=== PATIENT | female | born 1965 | race Caucasian/White ===

== ENCOUNTER 2020-02-15 11:23 | Outpatient (REF) | payer BC, SELFPAY | END 2020-02-15 11:24 | disposition home or self-care (01) | LOC: HO.LNP 11:23 | PROVIDERS: Visit Provider Nurse Practitioner Family | DX: Z20.828 Contact with and (suspected) exposure to other viral communicable diseases (principal); B97.89 Other viral agents as the cause of diseases classified elsewhere; J02.8 Acute pharyngitis due to other specified organisms | CPT/HCPCS: 87635 ==

== ENCOUNTER 2023-02-12 07:53 | Emergency (ER) | payer BC, SELFPAY ==
[2023-02-12 08:04] VITALS: BP 128/75; BP 148/82; PULSE 80; RESP 16; TEMP 36.4; O2SAT 95; BMI 29.0
--- OUTSIDE RECORDS SUMMARY | 2023-02-12 08:22 | XMS_ITS | Continuity of Care Document ---
Author Name Unknown Organization [facility] ter Address [address] [place] [id number] Care Team Providers Care Sales Support Consultant Name Role Phone Samson Reyes MD Primary Care Physician [phone] Encounter [facility] [place] Date(s): 04/09/19 - 11/10/[address] [address]- [facility] Attending Physician: Gladis Pinedo NP Admitting Physician: Gladis Pinedo NP Referring Physician: Gladis Pinedo NP Allergies, Adverse Reactions, Alerts Substance Reaction Severity Status NKA Active Immunizations Given and Recorded Vaccine Date Status Refusal Reason pneumococcal 23-valent vaccine 01/04/15 Given Pneumococcal Vaccine (oldterm) 06/14/08 Given influenza virus vaccine, inactivated 06/14/08 Give n Medications acetaminophen 325 mg oral tablet = 650 mg, By Mouth, Every 4 hours, PRN Headache Pain , Mild, Temperature Greater than 100.5, 0 Refills, Maintenance, 01/06/15 8:41:38, Tablet Start Date: 01/06/15 Status: Ordered LORazepam 0.5 mg oral tablet 1 tablet = 0.5 mg, By Mouth, Once, PRN as needed for anxiety, 0 Refills, Maintenance, 01/03/15 18:45:22, Tablet Start Date: 01/03/15 Status: Ordered pantoprazole 40 mg oral delayed release tablet 1 tablet = 40 mg, By Mouth, 2 times a day, # 14 tablet, 0 Refills, Maintenance, 01/06/15 8:43:27, 1tablet By Mouth 2 times a day,x7 days Start Date: 01/06/15 Stop Date: 01/13/15 Status: Ordered pantoprazole 40 mg oral delayed release tablet 1 tablet = 40 mg, By Mouth, Daily, Take one tablet twice a week then one tablet daily, # 30 tablet,2 Refills, Maintenance, 01/06/15 13:28:29, EC Tablet, 1 tablet By Mouth Daily,Instr:Take one tablettwice a week then one tablet daily Start Date: 01/06/15 Status: Ordered ProAir HFA 2 puffs, Inhalation, Every 4 hours, 0 Refills, Maintenance, 01/03/15 18:45:38 Start Date: 01/03/15 Status: Ordered
[2023-02-12 08:45] LABS: MANUAL DIFF FLAG NO
[2023-02-12 08:46] LABS: Basophils Absolute Auto 0.1 X10*3/uL (0.0-0.2); Basophils Percent Auto 0.7 % (0-2); Eosinophils Absolute Auto 0.2 X10*3/uL (0.0-0.4); Eosinophils Percent Auto 2.4 % (0-4); Hematocrit 41.5 % (37.0-47.0); Hemoglobin 13.4 g/dl (12.0-16.0); Imm Gran Abs Auto 0.02 X10*3/uL (0.00-0.03); Imm Gran Pct Auto 0.3 % (0.0-0.4); Lymphocytes Absolute Auto 1.6 X10*3/uL (1.2-4.9); Lymphocytes Percent Auto 22.8 % (20-40); Mean Corpuscular HGB Conc 32.3 g/dl (31.0-35.0); Mean Corpuscular Hemoglobin 29.3 pg (27.0-33.0); Mean Corpuscular Volume 90.6 fL (80.0-98.0); Mean Platelet Volume 9.2 fL (9.4-12.3); Monocytes Absolute Auto 0.5 X10*3/uL (0.1-1.2); Monocytes Percent Auto 7.1 % (2-11); Neutrophils Absolute Auto 4.8 x10*3/uL (2.0-8.3); Neutrophils Percent Auto 66.7 % (45-73); Platelet Count 263 X10*3/uL (160-400); Red Blood Count 4.58 X10*6/uL (4.20-5.50); Red Cell Distribution Width 12.9 % (11.0-16.0); White Blood Count 7.2 X10*3/uL (4.8-10.8)
[2023-02-12 08:58] LABS: Ammonia 32 umol/L (13-55)
[2023-02-12 09:04] LABS: Alanine Aminotransferase 64 U/L (0-31); Albumin Level 4.1 g/dL (3.5-5.0); Alkaline Phosphatase 86 U/L (39-117); Anion Gap 13 (12-20); Aspartate Amino Transferase 39 U/L (5-31); Bilirubin Total 0.6 mg/dL (0.0-1.0); Blood Urea Nitrogen 21 mg/dL (9-16); Calcium 9.7 mg/dL (8.4-10.2); Carbon Dioxide 26 mmol/L (22-29); Chloride 105 mmol/L (96-108); Creatinine Clr Calc Pharmacy 82.5; Estimated Glomerular Filt Rate > 60; Glucose Random 111 mg/dL (60-115); Sodium 140 mmol/L (135-145); Total Protein 6.8 g/dL (6.5-8.0)
[2023-02-12 09:53] LABS: Ethanol < 10 mg/dL
[2023-02-12 10:33] VITALS: BP 134/78; PULSE 82; RESP 18; TEMP 36.5; O2SAT 95
[2023-02-12 10:44] LABS: Appearance Urine Clear; Color Urine Dark Yellow; Glucose Urine UA Negative (Negative); Leukocyte Esterase Urine Negative (Negative); Nitrite Urine Negative (Negative); PH 5.5 (5.0-9.0); Specific Gravity - Urine >= 1.030 (1.005-1.025); Urine Blood Negative (Negative); Urine Ketones Negative (Negative); Urine Protein Negative (Neg-Trace)
[2023-02-12 10:57] LABS: Amphetamine Screen Urine Not Detected (Not Detect); Barbiturates, Urine Not Detected (Not Detect); Benzodiazepines Screen Urine Not Detected (Not Detect); Cannabinoid Screen Urine POSITIVE (Not Detect); Cocaine Screen Urine Not Detected (Not Detect); Fentanyl, urine Not Detected (Not Detect); Opiate Screen Urine Not Detected (Not Detect); Phencyclidine Screen Urine Not Detected (Not Detect)
--- NOTE | 2023-02-12 11:36 | PC.NURSE ---
PO challenging patient at this time, provided with water and crackers. per family, patient still appears to be altered at this time stating that she seems off
--- NOTE | 2023-02-12 12:40 | ED_ITS ---
HPI - Altered Mental Status General Chief Complaint: Altered Mental Status Stated Complaint: ALTERED X3-4 DAYS PER FAM,WEAK PER PT Time Seen by Provider: 02/12/23 07:59 Source: patient and EMS Mode of arrival: EMS History of Present Illness HPI narrative: Patient presents lethargic and slurred, she is on a lot of psych meds and has been using marijuana. She may have doubled up her meds. complaint: altered mental status Onset (ago): day(s) Timing confirmed by: family member Related Data Home Medications Medication Instructions Recorded Confirmed aripiprazole 5 mg tablet (Abilify) 5 mg PO DAILY 02/15/20 bupropion HCl 100 mg tablet,12 hr 100 mg PO DAILY 02/15/20 sustained-release (Wellbutrin SR) sertraline 100 mg tablet 100 mg PO DAILY 02/15/20 sertraline 50 mg tablet 50 mg PO DAILY 02/15/20 trazodone 100 mg tablet 100 mg PO DAILY 02/15/20 Previous Rx's Medication Instructions Recorded erythromycin 5 mg/gram (0.5 %) eye 0.5 inch ophthalmic (eye) TID #3.5 04/11/22 ointment grams sulfacetamide sodium 10 % eye drops 2 drp ophthalmic (eye) Q4H 10 days 04/11/22 #15 mL Allergies Allergy/AdvReac Type Severity Reaction Status Date / Time No Known Allergies Allergy Verified 04/11/22 12:05 Review of Systems 2 Review of Systems: Yes all other systems are reviewed and are negative Neurologic: Denies Sensory deficit (Neuro) [facility] Social History Social History Advance Directives: No Advance Directives Information Provided: No Physical Exam ED Vital Signs: Vital Signs - 24 hr 02/12/23 08:04 02/12/23 10:33 Temperature 97.6 F 97.7 F Pulse Rate 80 82 Respiratory Rate 16 18 Blood Pressure 128/75 134/78 Pulse Oximetry 95 95 Oxygen Delivery Method Room Air Room Air BMI result Body Mass Index 29.0 Const Other: lethargic female appearing altered on meds Nutritional Appearance: average body habitus Orientation/consciousness: oriented to person and patient oriented x3 Limitations: no limitations HENMT Head: Yes normal to inspection Ears: external ears normal General nose exam: Normal external nose present Mouth: Normal oral and palatal mucosa present and oropharynx normal Throat: Yes posterior oropharynx normal Eyes General: appearance normal, both eyes and all related structures Neck Neck: Yes normal visual inspection Chest Chest palpation & inspection: normal inspection of the chest Resp Auscultation: clear to auscultation bilaterally Cardio Jugular venous distension: no JVD Rate: regular rate Rhythm: regular rhythm Heart sounds: S1 normal heart sound present and S2 normal heart sound present GI Inspection: Yes normal to inspection Palpation (GI): Soft to palpation, nontender and No hepatosplenomegaly present Auscultation: normal bowel sounds General: Yes no CVA tenderness Back/Spine/Pelvis Back: no CVA tenderness Skin General skin exam: no rashes or lesions noted Neuro General: oriented to person and patient oriented x3 Cranial nerves: Yes CN's II-XII intact bilaterally Motor exam (neuro): 5/5 motor strength present throughout Sensory Exam: No Sensory deficit (Neuro) Extrem General: Yes normal to inspection Psych Appearance: grossly normal Course Reevaluation(s) Reevaluation #1: start of physician observation: patient still lethargic will start obs to see if she improves over time. Family at bedside Time: 12:47 Medical Decision Making Differential Diagnosis Differential Diagnoses: The differential diagnosis associated with the presentation includes (substance abuse, medication side effect or accidental overdose, stroke, alcohol intoxication) Admission/Observation Consideration of admission/observation: Escalation of care including admission/observation considered (upon arrival patient considered for admission) Lab Data MDM Lab Attestation statement: I reviewed the patient's lab results. (labs only positive for THC, with slight liver elevation) 02/12/23 08:29 02/12/23 08:29 Labs: Lab Results 02/12/23 02/12/23 Range/Units 08:29 10:30 WBC 7.2 (4.8-10.8) X10*3/uL RBC 4.58 (4.20-5.50) X10*6/uL Hgb 13.4 (12.0-16.0) g/dl Hct 41.5 (37.0-47.0) % MCV 90.6 (80.0-98.0) fL MCH 29.3 (27.0-33.0) pg MCHC 32.3 (31.0-35.0) g/dl RDW 12.9 (11.0-16.0) % Plt Count 263 (160-400) X10*3/uL MPV 9.2 L (9.4-12.3) fL Immature Gran % (Auto) 0.3 (0.0-0.4) % Neut % (Auto) 66.7 (45-73) % Lymph % (Auto) 22.8 (20-40) % [place] % (Auto) 7.1 (2-11) % Eos % (Auto) 2.4 (0-4) % Baso % (Auto) 0.7 (0-2) % Lymph # (Auto) 1.6 (1.2-4.9) X10*3/uL [place] # (Auto) 0.5 (0.1-1.2) X10*3/uL Eos # (Auto) 0.2 (0.0-0.4) X10*3/uL Baso # (Auto) 0.1 (0.0-0.2) X10*3/uL Abs Immat Gran (auto) 0.02 (0.00-0.03) X10*3/uL Absolute Neuts (auto) 4.8 (2.0-8.3) x10*3/uL Absolute Nucleated RBC 0.000 (0.0-0.012) X10*3/uL Nucleated RBC % (auto) 0.0 (0.0-0.2) /100WBC Sodium 140 (135-145) mmol/L Potassium 4.0 (3.3-5.1) mmol/L Chloride 105 (96-108) mmol/L Carbon Dioxide 26 (22-29) mmol/L Anion Gap 13 (12-20) BUN 21 H (9-16) mg/dL Creatinine 0.69 (0.5-1.4) mg/dL Estim Creat Clear Calc 82.5 Estimated GFR > 60 Random Glucose 111 (60-115) mg/dL Calcium 9.7 (8.4-10.2) mg/dL Total Bilirubin 0.6 (0.0-1.0) mg/dL AST 39 H (5-31) U/L ALT 64 H (0-31) U/L Alkaline Phosphatase 86 (39-117) U/L Ammonia 32 (13-55) umol/L Total Protein 6.8 (6.5-8.0) g/dL Albumin 4.1 (3.5-5.0) g/dL Urine Color Dark Yellow Urine Appearance Clear Urine pH 5.5 (5.0-9.0) Ur Specific [place] >= 1.030 H (1.005-1.025) Urine Protein Negative (Neg-Trace) mg/dL Urine Glucose (UA) Negative (Negative) mg/dL Urine Ketones Negative (Negative) mg/dL Urine Blood Negative (Negative) Urine Nitrite Negative (Negative) Ur Leukocyte Esterase Negative (Negative) Urine Opiates Screen Not Detected (Not Detect) Urine Fentanyl Screen Not Detected (Not Detect) Ur Barbiturates Screen Not Detected (Not Detect) Ur Phencyclidine Scrn Not Detected (Not Detect) Ur Amphetamines Screen Not Detected (Not Detect) U Benzodiazepines Scrn Not Detected (Not Detect) Urine Cocaine Screen Not Detected (Not Detect) U Marijuana (THC) Screen POSITIVE H (Not Detect) Ethyl Alcohol < 10 mg/dL Independent Historian Clinical information obtained from an independent historian. History obtained from or confirmed by: Other (son and sister) Tests considered The following testing was considered but not selected: Head CT was considered but patient is nonfocal Discharge Plan Discharge Clinical Impression: Altered mental status, Medication side effect, Tetrahydrocannabinol (THC) use disorder, mild, abuse Patient Disposition: Still a Patient Prescriptions: No Action sertraline 100 mg tablet 100 mg PO DAILY sertraline 50 mg tablet 50 mg PO DAILY bupropion HCl [Wellbutrin SR] 100 mg tablet sustained-release 12 hr 100 mg PO DAILY aripiprazole [Abilify] 5 mg tablet 5 mg PO DAILY trazodone 100 mg tablet 100 mg PO DAILY sulfacetamide sodium 10 % drops 2 drp ophthalmic (eye) Q4H 10 Days Qty: 15 0RF erythromycin 5 mg/gram (0.5 %) ointment 0.5 inch ophthalmic (eye) TID Qty: 3.5 0RF
--- NOTE | 2023-02-12 13:41 | PC.NURSE ---
now physician observation at this time, family reporting that she is still not herself. respirations even and unlabored.
[2023-02-12 16:00] VITALS: BP 117/70; PULSE 68; RESP 16; TEMP 36.7; O2SAT 100
[2023-02-12] MEDS: Butalb/Acetamin/Caff 50/325/40 TABLET 1 TAB PO (19:06)
[2023-02-12 20:00] VITALS: BP 111/63; PULSE 84; RESP 16; TEMP 36.9; O2SAT 96
== END 2023-02-12 21:24 | disposition home or self-care (01) ==
PROVIDERS: Emergency Provider Emergency Medicine
DX: R41.82 Altered mental status, unspecified (principal); T40.711A Poisoning by cannabis, accidental (unintentional), initial encounter; F12.10 Cannabis abuse, uncomplicated; Y92.9 Unspecified place or not applicable; Z79.899 Other long term (current) drug therapy
CPT/HCPCS: 36415; 80053; 80307; 81003; 82140; 85025; 99283; 99285

== ENCOUNTER 2023-07-17 10:32 | Outpatient (AMB) | payer BC, SELFPAY ==
[2023-07-17 11:18] VITALS: BP 118/76; PULSE 88; TEMP 36.5; O2SAT 97; BMI 24.5
--- NOTE | 2023-07-17 11:18 | AM.OFFWIN_ITS ---
Intake Vital Signs 07/17/23 11:18 Height 5 ft 2 in Weight 134 lb BMI 24.5 BP 118/76 Blood Pressure Location Lt brachial Position Sitting Pulse 88 Pulse Source Pulse Oximeter Temp 97.7 F Temp Source Temporal Artery Scan Pulse Oximetry (%) 97 Oxygen Delivery Method Room Air Intake Visit Reasons: EP ?Strep Throat Intake Note: pt is here today for strep throat started yesterday Patient Tobacco Use Status: Never used Tobacco Allergies No Known Allergies Allergy (Verified 07/17/23 11:36) Do you need a note to return to daycare/school/sports/work: Yes HPI HPI Comments History of Present Illness Details 57 y/o female patient who [facility] clinic with c/o Sore throat for 2-4 days now. Reports fevers at home 100F. Recent contact with sick person (Grand-daughter) at home with positive Strep. REPLACED BY [facility] Social History Patient Tobacco Use Status: Never used Tobacco Physical Exam Vital Signs: Last Vital Signs Temp 97.7 F 07/17/23 11:18 Pulse 88 07/17/23 11:18 BP 118/76 07/17/23 11:18 Pulse Ox 97 07/17/23 11:18 Oxygen Delivery Method Room Air 07/17/23 11:18 BMI result Body Mass Index 24.5 Const General: comfortable and no acute distress Orientation/consciousness: patient oriented x3 HEENT Head: Yes normocephalic Ears: external ears normal and TM's normal bilaterally General nose exam: Normal nasal mucous membranes and turbinates present Face and sinus: Yes sinuses nontender Mouth: Abnormal oral and palatal mucosa present erythematous and white patches Throat: Yes posterior oropharynx normal Resp Effort & Inspection: normal respiratory effort and able to speak in complete sentences Auscultation: clear to auscultation bilaterally, no crackles, no rales and no rhonchi Cardio Rate: regular rate Rhythm: regular rhythm Neuro General: patient oriented x3, gait normal and moves all extremities Psych Mental Status: mental status grossly normal Results AMB Rapid Strep AMB Rapid Strep Negative Last Edit by Clark Farias CMA on 07/17/23 12 :07 Assessment & Plan Assessment & Plan (1) Acute pharyngitis: Code(s): J02.9 - Acute pharyngitis, unspecified Qualifiers: Pharyngitis/tonsillitis etiology: unspecified etiology Qualified Code(s): J02.9 - Acute pharyngitis, unspecified Plan: - Rest and hydrate with warm fluids - OTC sore throat remedies - Rapid Strep Positive - Start PCN as directed. (2) Acute streptococcal pharyngitis: Code(s): J02.0 - Streptococcal pharyngitis Plan: - Rest and hydrate with warm fluids - OTC sore throat remedies - Rapid Strep Positive - Start PCN as directed. Orders: Orders AMB Rapid Strep Screen Today Z13.9 - Encounter for screening, unspecified Medications: New penicillin V potassium 500 mg PO TID 10 days 30 tabs 0RF J02.0 - Streptococcal pharyngitis, J02.9 - Acute pharyngitis, unspecified acetaminophen 1,000 mg (2 x 500 mg) PO Q6H PRN 30 caps 0RF fever J02.0 - Streptococcal pharyngitis, J02.9 - Acute pharyngitis, unspecified Coding Level of Care Code Est Pt Level 3 (74524) Diagnoses Acute pharyngitis, unspecified etiology J02.9 Pharyngitis/tonsillitis etiology: unspecified etiology Acute streptococcal pharyngitis J02.0 Time Spent (min) 15
== END 2023-07-17 14:50 | disposition home or self-care (01) ==
PROVIDERS: Visit Provider Nurse Practitioner Family
DX: J02.9 Acute pharyngitis, unspecified (principal); J02.0 Streptococcal pharyngitis; Z13.9 Encounter for screening, unspecified
CPT/HCPCS: 87880; 99213

== ENCOUNTER 2023-07-21 08:50 | Emergency (ER) | payer BC, SELFPAY ==
--- NOTE | ~2023-07-21 | CT_ITS ---
EXAMINATION: CT ABDOMEN AND PELVIS WITH CONTRAST CLINICAL INFORMATION: Fell down stairs with left-sided pain COMPARISON: None available. TECHNIQUE: Multidetector volumetric images were obtained from the superior aspect of the liver through the pubic symphysis following administration 85 mL of Omnipaque 350 intravenous contrast. Sagittal and coronal reformatted images were obtained on the technologist's workstation. Oral contrast: No This CT examination was performed using dose optimization techniques as appropriate, variously including the following: *Automated exposure control *Adjustment of mA and/or kV according to patient size (this includes techniques or standardized protocols for targeted exams where dose is matched to indication/reason for exam; i.e. extremities or head) *Use of iterative reconstruction technique DLP: 471 mGy-cm FINDINGS: LUNG BASES: The visualized lung bases are unremarkable. LIVER, GALLBLADDER, AND BILIARY TREE: The liver is enlarged at 19.4 cm in cephalocaudad dimension with decreased attenuation consistent with hepatic steatosis. In the Right lobe of the liver there is a 3.8 cm enhancing mass present with central hypodensity which could be a hemangioma A small cyst is present in the right lobe of the liver (13:27). No other focal hepatic lesion or biliary ductal dilatation is present. There is a mass at the gallbladder fundus measuring 0.7 x 1.1 x 1.6 cm. This could be related to a mass lesion such as a sessile polyp or possibly adenomyosis. Malignancy cannot be entirely excluded. The gallbladder is otherwise unremarkable with no evidence of radiopaque or obvious pericholecystic inflammatory changes. PANCREAS: Unremarkable. SPLEEN: Spleen is enlarged at 13.7 cm ADRENAL GLANDS: Unremarkable. KIDNEYS AND URETERS: The kidneys are normal in size, shape, and attenuation. No hydronephrosis, hydroureter, or calculi seen. No perinephric stranding. BLADDER: Unremarkable. GASTROINTESTINAL TRACT: The small and large bowel are unremarkable. The appendix is unremarkable. ABDOMINAL WALL: No significant hernia is appreciated. LYMPH NODES: Normal. VASCULAR: Calcific atherosclerotic changes are present in the aorta and iliac vessels. There is no evidence of an abdominal aortic aneurysm. PELVIC VISCERA: The uterus is not seen. An abnormal adnexal mass is not detected. No free intraperitoneal fluid is present. OSSEOUS STRUCTURES: Moderate biconvex thoracolumbar scoliosis. CT/CT abdomen pelvis w IV con IMPRESSION: 1. A cause for the patient's acute left-sided pain has not been found. 2. Incidental note made of an enlarged fatty liver with a 3.8 cm enhancing mass in the right lobe which could be a hemangioma. This could be further evaluated with MRI. 3. There is a 1.6 cm mass at the gallbladder fundus. This could be further evaluated with MRI. 4. Incidental note made of splenomegaly, hysterectomy and scoliosis. Fleischner guidelines were followed.
--- NOTE | ~2023-07-21 | CT_ITS ---
EXAMINATION: CT CHEST WITHOUT CONTRAST CLINICAL INFORMATION: Left-sided blunt trauma. COMPARISON: CXR from 12/29/2012 TECHNIQUE: Multidetector volumetric CT imaging of the chest was done. Axial MIP volume rendering provided. Sagittal and coronal reformatted images were obtained. This CT examination was performed using dose optimization techniques as appropriate, variously including the following: *Automated exposure control *Adjustment of mA and/or kV according to patient size (this includes techniques or standardized protocols for targeted exams where dose is matched to indication/reason for exam; i.e. extremities or head) *Use of iterative reconstruction technique DLP: 7.31 mGy-cm for the topogram and 196.02 mGy-cm for the chest CT. FINDINGS: LUNGS AND PLEURA: Mild centrilobular and paraseptal emphysema of upper lobes. Bronchial antonio are mildly thickened and there are scattered small endobronchial secretions. Old calcified nodules are present in the posterior right lung apex and anterior left upper lobe. Noncalcified micronodules are present, including lateral right lung apex (image 51, series 7), lateral left lung apex (image 85, series 7), anterior left upper lobe (image 128, series 7), and lateral right lower lobe (image 301, series 7). There is a 0.3 cm pleural-based nodule of the posterior left lower lobe. No evidence of pulmonary edema, focal consolidation, pleural effusion or pneumothorax. CARDIOVASCULAR: The heart size is normal. No pericardial effusion. Pulmonary arteries and thoracic aorta are normal in caliber. CORONARY ARTERY CALCIFICATION: None detected. MEDIASTINUM AND LOWER NECK: No mediastinal mass. The esophagus and thyroid gland are unremarkable. LYMPHATICS: No pathologic sized lymph nodes. UPPER ABDOMEN: Mild hepatosplenomegaly. A focal thickening of the wall of the gallbladder fundus likely represents focal adenomyomatosis. This could be followed up with ultrasound for further characterization and to ensure stability. A hypodensity in the left hepatic lobe adjacent to the falciform ligament measures 3.2 cm transverse and is statistically likely a cavernous hemangioma. It exhibits a peripheral pattern of contrast opacification on the portal venous phase CT images. SKELETAL AND CHEST WALL: 0.8 cm nodular focus in the medial left breast is likely benign but of uncertain chronicity. There are no comparison breast imaging exams. Recommend correlation with the physical examination and any prior mammographic exams. The ribs are intact. No evidence of acute rib fracture or chest wall hematoma. The sternum is normal. Multilevel osteophyte formation of the spine. Thoracic vertebra have well preserved height and alignment. CT/CT chest wo IV con IMPRESSION: * Mild pulmonary emphysema, diffuse thickening of bronchial antonio, and pulmonary micronodules. Based on Fleischner Society guidelines, if patient is low risk, no routine follow-up recommended. If patient is high risk, chest CT follow up is optional at 12 months; if stable at 12 months, no further follow up. * Mild hepatosplenomegaly. 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 * A focal thickening of the wall the gallbladder fundus probably represents focal adenomyomatosis.
[2023-07-21 08:55] VITALS: BP 115/80; PULSE 86; O2SAT 98
[2023-07-21 08:58] VITALS: BP 136/76; PULSE 89; RESP 18; TEMP 36.6; O2SAT 96; BMI 24.5
--- NOTE | 2023-07-21 09:32 | ED_ITS ---
HPI - General Adult General Chief complaint: Fall Stated complaint: FALL DOWN 1O STEPS @4AM,DIZZY,BACK/L SIDE PAIN Time Seen by Provider: 07/21/23 09:30 History of Present Illness HPI narrative: The patient is a 57-year-old female who says that at around 04:00 o'clock this morning she got out of bed to go to the bathroom and accidentally fell down a flight of stairs. She remembers the episode. She does not think she had any significant head injury. She has no neck pain. She had a lot of pain on the left side of her torso. She was able to crawl back up the stairs and get back into bed. She slept some more but later woke in a great deal of pain in her left chest left flank and abdomen and came to the emergency room for evaluation. Related Data Home Medications Medication Instructions Recorded Confirmed aripiprazole 5 mg tablet (Abilify) 5 mg PO DAILY 02/15/20 bupropion HCl 100 mg tablet,12 hr 100 mg PO DAILY 02/15/20 sustained-release (Wellbutrin SR) sertraline 100 mg tablet 100 mg PO DAILY 02/15/20 sertraline 50 mg tablet 50 mg PO DAILY 02/15/20 trazodone 100 mg tablet 100 mg PO DAILY 02/15/20 albuterol sulfate 90 mcg/actuation inhalation 07/17/23 aerosol inhaler aripiprazole 2 mg tablet 2 mg PO DAILY 07/17/23 bupropion HCl 150 mg 24 hr tablet, 150 mg PO QAM 07/17/23 extended release qavijnahuc-urkdmukxwzxbu-gsqautwe tab PO 07/17/23 50 mg-325 mg-40 mg tablet escitalopram oxalate 20 mg tablet 20 mg PO DAILY 07/17/23 gabapentin 300 mg capsule mg PO 07/17/23 quetiapine 50 mg tablet mg PO 07/17/23 Previous Rx's Medication Instructions Recorded erythromycin 5 mg/gram (0.5 %) eye 0.5 inch ophthalmic (eye) TID #3.5 04/11/22 ointment grams sulfacetamide sodium 10 % eye drops 2 drp ophthalmic (eye) Q4H 10 days 04/11/22 #15 mL acetaminophen 500 mg capsule 1,000 mg (2 x 500 mg) PO Q6H PRN 07/17/23 fever #30 caps penicillin V potassium 500 mg 500 mg PO TID 10 days #30 tabs 07/17/23 tablet cyclobenzaprine 10 mg tablet 10 mg PO TID PRN muscle pain #14 07/21/23 tabs ibuprofen 600 mg tablet 600 mg PO Q6H PRN pain #14 tabs 07/21/23 Allergies Allergy/AdvReac Type Severity Reaction Status Date / Time No Known Allergies Allergy Verified 07/17/23 11:36 PENDING SALE TO [facility] Social History Social History Patient Tobacco Use Status: Never used Tobacco Smoked in Last 30 Days: No Use of substances other than those prescribed or required for medical reasons: No Advance Directives: No Advance Directives Information Provided: No Patient : No Physical Exam ED Vital Signs: Vital Signs - 24 hr 07/21/23 08:58 07/21/23 10:19 07/21/23 10:44 Temperature 98 F Pulse Rate 89 84 90 Respiratory Rate 18 20 19 Blood Pressure 136/76 128/65 Pulse Oximetry 96 96 97 Oxygen Delivery Method Room Air 07/21/23 14:15 07/21/23 15:41 Temperature 98.4 F Pulse Rate 91 109 H Respiratory Rate 16 18 Blood Pressure 157/73 H 125/77 Pulse Oximetry 98 97 Oxygen Delivery Method Room Air Room Air BMI result Body Mass Index 24.5 Const Other: The patient is awake and alert. She does not appear in acute distress although she does look uncomfortable. HENMT Other: No signs of trauma to the head or the face Eyes Other: Pupils are round equal, conjunctivae are clear, extraocular movements intact Neck Other: No posterior midline C-spine tenderness. Good range of motion of the neck without pain. C-spine is clinically clear. Resp Other: Lungs are clear bilaterally. There is left-sided chest wall tenderness. No crepitus or subcutaneous emphysema Cardio Rate: regular rate Rhythm: regular rhythm Heart sounds: S1 normal heart sound present and S2 normal heart sound present GI Other: Left-sided abdominal tenderness. Back/Spine/Pelvis Other: There is left flank tenderness with palpation. No midline vertebral tenderness. Skin Other: Skin is intact. No obvious bruising. Neuro Other: The patient is awake and alert. Mental status is normal. Cranial nerves are intact. C-spine is clinically clear. She has good strength in her extremities. She is neurologically intact Extrem Other: No deformities to the extremities. Pain around the left hip but can put the left hip through a good range of motion. Medications Administered Discontinued Medications Generic Name Dose Route Start Last Admin Trade Name Bernardo PRN Reason Stop Dose Admin Sodium Chloride 1,000 mls @ 999 mls/hr 07/21/23 09:45 07/21/23 15:25 Ns IV 07/21/23 10:45 Infused .Q1H1M RON Infusion Iohexol 100 ml 07/21/23 11:41 07/21/23 11:42 Iohexol 350 Mg/Ml 100 Ml Infus..Btl IV 07/21/23 11:42 85 ml ONCE ONE Administration Ketorolac Tromethamine 10 mg 07/21/23 13:59 07/21/23 14:13 Ketorolac Tromethamine 15 Mg/Ml Vial IVPUSH 07/21/23 14:00 10 mg ONCE ONE Administration Morphine Sulfate 4 mg 07/21/23 10:05 07/21/23 10:15 Morphine Sulfate 4 Mg/Ml Cartridge IVPUSH 07/21/23 10:06 4 mg ONCE ONE Administration Protocol Medical Decision Making Medical Decision Making MDM Narrative: The patient presents for evaluation of injuries following a fall down 1 flight of stairs in her home several hours ago. She is describing significant pain on the left chest and in the left flank and left abdomen. Also she has pain near the left hip. Clinically the left hip does not seem broken. Clinically the C- spine is clear. She does not describe any significant head injury. Your mental status is normal. A CT scan of the chest, abdomen, and pelvis shows no identifiable internal injuries or fractures. The patient was treated with ketorolac with improvement in her pain. She was feeling better and was able to walk. She will be discharged with instructions to rest and take it easy for the next few days. She was given a work note cyclobenzaprine which she may use in addition to ibuprofen and acetaminophen. Lab Data 07/21/23 10:09 07/21/23 10:09 Labs: Lab Results 07/21/23 Range/Units 10:09 WBC 11.3 H (4.8-10.8) X10*3/uL RBC 4.27 (4.20-5.50) X10*6/uL Hgb 12.8 (12.0-16.0) g/dl Hct 37.7 (37.0-47.0) % MCV 88.3 (80.0-98.0) fL MCH 30.0 (27.0-33.0) pg MCHC 34.0 (31.0-35.0) g/dl RDW 12.9 (11.0-16.0) % Plt Count 261 (160-400) X10*3/uL MPV 9.1 L (9.4-12.3) fL Immature Gran % (Auto) 0.6 H (0.0-0.4) % Neut % (Auto) 81.8 H (45-73) % Lymph % (Auto) 11.5 L (20-40) % [place] % (Auto) 5.3 (2-11) % Eos % (Auto) 0.4 (0-4) % Baso % (Auto) 0.4 (0-2) % Lymph # (Auto) 1.3 (1.2-4.9) X10*3/uL [place] # (Auto) 0.6 (0.1-1.2) X10*3/uL Eos # (Auto) 0.0 (0.0-0.4) X10*3/uL Baso # (Auto) 0.1 (0.0-0.2) X10*3/uL Abs Immat Gran (auto) 0.07 H (0.00-0.03) X10*3/uL Absolute Neuts (auto) 9.2 H (2.0-8.3) x10*3/uL Absolute Nucleated RBC 0.000 (0.0-0.012) X10*3/uL Nucleated RBC % (auto) 0.0 (0.0-0.2) /100WBC Sodium 141 (135-145) mmol/L Potassium 4.2 (3.3-5.1) mmol/L Chloride 107 (96-108) mmol/L Carbon Dioxide 26 (22-29) mmol/L Anion Gap 12 (12-20) BUN 13 (9-16) mg/dL Creatinine 0.60 (0.5-1.4) mg/dL Estim Creat Clear Calc 87.7 Estimated GFR > 60 Random Glucose 125 H (60-115) mg/dL Calcium 9.4 (8.4-10.2) mg/dL Total Bilirubin 0.3 (0.0-1.0) mg/dL Direct Bilirubin 0.1 (0.0-0.5) mg/dL AST 22 (5-31) U/L ALT 21 (0-31) U/L Alkaline Phosphatase 96 (39-117) U/L Total Protein 6.4 L (6.5-8.0) g/dL Albumin 3.8 (3.5-5.0) g/dL Lipase 17 (8-78) U/L Discharge Plan Discharge Clinical Impression: Contusion of multiple sites, Fall Patient Disposition: Home, Self-Care Additional Instructions: The CT scan imaging of your torso does not show any signs of fractures or internal injuries of any kind. I think you are mostly experiencing bad contusions and strains. You may take 2 extra-strength acetaminophen up to 3 times a day as needed for pain. Additionally I have prescribed ibuprofen which you may take every 6 hours as needed and also a muscle relaxant medication, cyclobenzaprine (also known as Flexeril) which you may use in addition. No driving on Flexeril. Please planning on resting and taking it easy for the next couple of days. My hope is that you will be feeling well enough by to return to work. Please follow up with your regular doctor as scheduled. Return to the emergency room if significantly worse or if you develop significant new symptoms. Prescriptions: New ibuprofen 600 mg tablet 600 mg PO Q6H PRN (Reason: pain) Qty: 14 0RF cyclobenzaprine 10 mg tablet 10 mg PO TID PRN (Reason: muscle pain) Qty: 14 0RF No Action sertraline 100 mg tablet 100 mg PO DAILY sertraline 50 mg tablet 50 mg PO DAILY bupropion HCl [Wellbutrin SR] 100 mg tablet sustained-release 12 hr 100 mg PO DAILY aripiprazole [Abilify] 5 mg tablet 5 mg PO DAILY trazodone 100 mg tablet 100 mg PO DAILY sulfacetamide sodium 10 % drops 2 drp ophthalmic (eye) Q4H 10 Days Qty: 15 0RF erythromycin 5 mg/gram (0.5 %) ointment 0.5 inch ophthalmic (eye) TID Qty: 3.5 0RF quetiapine 50 mg tablet PO bupropion HCl 150 mg tablet extended release 24 hr 150 mg PO QAM albuterol sulfate 90 mcg/actuation HFA aerosol inhaler inhalation geggbnaxxo-havjvnpqldjxl-ibfo 50-325-40 mg tablet PO escitalopram oxalate 20 mg tablet 20 mg PO DAILY aripiprazole 2 mg tablet 2 mg PO DAILY gabapentin 300 mg capsule PO penicillin V potassium 500 mg tablet 500 mg PO TID 10 Days Qty: 30 0RF acetaminophen 500 mg capsule 1,000 mg PO Q6H PRN (Reason: fever) Qty: 30 0RF Referrals: Nancy Silverman, [employer] [Primary Care Provider] - (Fall, multiple contusions) Stand Alone Forms: Work/School Release Interventions: ED Discharge Assessment Last Done: 07/21/23 15:41 Discharge Date/Time: 07/21/23 15:46
[2023-07-21] MEDS: 0.9 % Sodium Chloride 1,000 ML 999 ML IV (10:02)
[2023-07-21 10:14] LABS: MANUAL DIFF FLAG NO
[2023-07-21] MEDS: Morphine Sulfate 4 MG/ML CARTRIDGE IVPUSH (10:15)
[2023-07-21 10:17] LABS: Basophils Absolute Auto 0.1 X10*3/uL (0.0-0.2); Basophils Percent Auto 0.4 % (0-2); Eosinophils Percent Auto 0.4 % (0-4); Hematocrit 37.7 % (37.0-47.0); Hemoglobin 12.8 g/dl (12.0-16.0); Imm Gran Abs Auto 0.07 X10*3/uL (0.00-0.03); Imm Gran Pct Auto 0.6 % (0.0-0.4); Lymphocytes Absolute Auto 1.3 X10*3/uL (1.2-4.9); Lymphocytes Percent Auto 11.5 % (20-40); Mean Corpuscular Volume 88.3 fL (80.0-98.0); Mean Platelet Volume 9.1 fL (9.4-12.3); Monocytes Absolute Auto 0.6 X10*3/uL (0.1-1.2); Monocytes Percent Auto 5.3 % (2-11); Neutrophils Absolute Auto 9.2 x10*3/uL (2.0-8.3); Neutrophils Percent Auto 81.8 % (45-73); Platelet Count 261 X10*3/uL (160-400); Red Blood Count 4.27 X10*6/uL (4.20-5.50); Red Cell Distribution Width 12.9 % (11.0-16.0); White Blood Count 11.3 X10*3/uL (4.8-10.8)
[2023-07-21 10:19] VITALS: PULSE 84; RESP 20; O2SAT 96
[2023-07-21 10:31] LABS: Alanine Aminotransferase 21 U/L (0-31); Albumin Level 3.8 g/dL (3.5-5.0); Alkaline Phosphatase 96 U/L (39-117); Anion Gap 12 (12-20); Aspartate Amino Transferase 22 U/L (5-31); Bilirubin Direct 0.1 mg/dL (0.0-0.5); Bilirubin Total 0.3 mg/dL (0.0-1.0); Blood Urea Nitrogen 13 mg/dL (9-16); Calcium 9.4 mg/dL (8.4-10.2); Carbon Dioxide 26 mmol/L (22-29); Chloride 107 mmol/L (96-108); Creatinine Clr Calc Pharmacy 87.7; Estimated Glomerular Filt Rate > 60; Glucose Random 125 mg/dL (60-115); Lipase 17 U/L (8-78); Potassium 4.2 mmol/L (3.3-5.1); Sodium 141 mmol/L (135-145); Total Protein 6.4 g/dL (6.5-8.0)
[2023-07-21 10:44] VITALS: BP 128/65; PULSE 90; RESP 19; O2SAT 97
[2023-07-21] MEDS: iohexoL 350 MG/ML 100 ML INFUS..BTL IV (11:42)
[2023-07-21] MEDS: Ketorolac Tromethamine 15 MG/ML VIAL 10 MG IVPUSH (14:13)
[2023-07-21 14:15] VITALS: BP 157/73; PULSE 91; RESP 16; O2SAT 98
[2023-07-21 15:41] VITALS: BP 125/77; PULSE 109; RESP 18; TEMP 36.9; O2SAT 97
== END 2023-07-21 15:46 | disposition home or self-care (01) ==
PROVIDERS: Emergency Provider Emergency Medicine; PCP Registered Nurse
DX: S20.212A Contusion of left front wall of thorax, initial encounter (principal); R10.2 Pelvic and perineal pain; M25.552 Pain in left hip; R42 Dizziness and giddiness; W10.9XXA Fall (on) (from) unspecified stairs and steps, initial encounter; Y93.9 Activity, unspecified; Y92.9 Unspecified place or not applicable; Y99.8 Other external cause status; Z79.899 Other long term (current) drug therapy
CPT/HCPCS: 36415; 71250; 74177; 80048; 80076; 83690; 85025; 96361; 96374; 96375; 99284; J1885; J2270; Q9967

== ENCOUNTER 2025-03-11 13:45 | Emergency (ER) | payer BC, SELFPAY ==
--- NOTE | ~2025-03-11 | US_ITS ---
EXAMINATION: US TRIPLEX LOWER EXTREMITY, RIGHT CLINICAL INFORMATION: Right leg swelling, anterior jones nodules,? DVT. COMPARISON: None available. TECHNIQUE: Color-flow triplex imaging with spectral analysis and compression Doppler were performed on the right lower extremity. FINDINGS: Respiratory variation, normal compression and augmented flow are noted throughout the right lower extremity. The visualized common femoral vein, superficial femoral vein, profunda femoral vein, popliteal vein and midcalf peroneal and posterior tibial venous segments show no evidence of deep venous thrombosis. There is no Laura's cyst. Anterior jones nodules appear to represent nonspecific foci of skin thickening. US/US venous duplex LE RT IMPRESSION: No evidence of deep venous thrombosis involving the right lower extremity. Electronically signed by: Azar Baker MD 03/11/2025 04:29 PM YUE
--- NOTE | ~2025-03-11 | XR_ITS ---
EXAMINATION: XR TIBIA AND FIBULA, RIGHT CLINICAL INFORMATION: swelling hard anterior nodules COMPARISON: None available. TECHNIQUE: AP and lateral views of the right tibia and fibula were obtained. FINDINGS: No acute cortical disruption. No lytic or blastic lesions. No metallic or radiopaque foreign body. No subcutaneous emphysema. Poor evaluation of the knee and ankle joints. XR/XR tibia fibula RT 2V IMPRESSION: No acute fracture. No osteomyelitis.. Electronically signed by: Sachin Kohler MD 03/11/2025 02:31 PM EST
--- NOTE | ~2025-03-11 | CT_ITS ---
EXAMINATION: CT CHEST WITHOUT CONTRAST CLINICAL INFORMATION: Question granulomatous disease with calcified and noncalcified nodules: sarcoidosis , TB, Lymphoma? COMPARISON: 07/21/2023 TECHNIQUE: Multidetector volumetric CT imaging of the chest was done. Axial MIP volume rendering provided. Sagittal and coronal reformatted images were obtained. This CT examination was performed using dose optimization techniques as appropriate, variously including the following: *Automated exposure control *Adjustment of mA and/or kV according to patient size (this includes techniques or standardized protocols for targeted exams where dose is matched to indication/reason for exam; i.e. extremities or head) *Use of iterative reconstruction technique FINDINGS: LUNGS: Axial CT #4 Image 21: Right upper lobe solid pulmonary nodule 2 mm in size is stable. Image 23: Anterior left upper lobe calcified nodule 2 mm, unchanged. Image 25:2 mm lateral left upper lobe nodule is stable. Image 39: Anterior left upper lobe nodule 2 mm, unchanged. Image 94: Posterior lateral right lower lobe nodule 3 mm is unchanged. No new nodules were identified. MEDIASTINUM: There is no adenopathy. The heart size is within normal limits. Thyroid gland is homogeneous. CORONARY ARTERY CALCIFICATION: Minimal PLEURA: There is no pleural effusion. No pleural mass or thickening. AXILLA: No lymphadenopathy. UPPER ABDOMEN: There is diffuse decreased attenuation of the liver with focal sparing along the fissure of ligamentum teres. OSSEOUS STRUCTURES: Healed posterior lateral left 3-6 rib fractures are evident. Mild and moderate degenerative changes are evident in the lower thoracic spine. CT/CT chest wo IV con IMPRESSION: Stable small pulmonary nodules, one which is calcified. According to Fleischner Society recommendation, no further follow-up is indicated. Nodules are likely related to chronic granulomatous disease. Hepatic steatosis. Fleischner guidelines were followed. Electronically signed by: Luciano Hill MD 03/11/2025 03:24 PM YUE
[2025-03-11 13:49] VITALS: BP 163/69; PULSE 90; RESP 18; TEMP 36.4; O2SAT 93; BMI 24.7
--- NOTE | 2025-03-11 13:53 | PC.NURSE ---
extremity is warm, good cap refill.
--- NOTE | 2025-03-11 13:59 | ED_ITS ---
HPI - General Adult General Chief complaint: Extremity Problem Stated complaint: Blood Clot Time Seen by Provider: 03/11/25 15:41 History of Present Illness ED Provider: SKY ARMIJO MD HPI narrative: Date & Time: Patient Name: : N: Author / Clinician: Sky Armijo MD Chief Complaint Worsening lesion on right jones for approximately 8 months; associated shortness of breath over the past couple of weeks. History of Present Illness The patient presents to the Emergency Department for evaluation of a progressively worsening lesion located on the right jones. She reports the lesion has been present for roughly eight months and has become more concerning recently, describing increased redness. She denies any antecedent trauma or injury to the area. Over the past two weeks she has also experienced shortness of breath, for which a chest scan has already been obtained. She denies abdominal pain. Review of Systems - Skin: Positive for right jones lesion with increased redness/worsening over 8 months. - Respiratory: Positive for shortness of breath for the last couple of weeks. - Gastrointestinal: Denies abdominal pain. - Musculoskeletal/Trauma: Denies injury to the right leg. Past Medical History Patient denies history of blood pressure, heart, or lung problems. Past Surgical History - Hysterectomy with removal of a 29 lb abdominal/uterine mass ? approximately 3?4 years ago. Medications - Trazodone ? for sleep - Escitalopram (Lexapro) - Bupropion (Wellbutrin) Physical Exam: - Skin/Extremities: Right jones lesion observed; appears nodular but difficult to characterize on exam. Further characterization pending ultrasound. Emergency Department Course Patient is currently undergoing an ultrasound of the right jones (vascular vs. soft tissue study per discussion). A chest scan was performed earlier today in the context of reported shortness of breath. Results of imaging studies are pending at this time. Another clinician also noted the lesion during evaluation. Assessment & Plan Diagnosis: Related Data Home Medications ?Medication ?Instructions ?Recorded ?Confirmed aripiprazole 5 mg tablet (Abilify) 5 mg PO DAILY 02/14 bupropion HCl 100 mg tablet,12 hr 100 mg PO DAILY 01/20 11/07 sustained-release (Wellbutrin SR) sertraline 100 mg tablet 100 mg PO DAILY 02/15/20 sertraline 50 mg tablet 50 mg PO DAILY 02/15/20 trazodone 100 mg tablet 100 mg PO DAILY 02/15/20 albuterol sulfate 90 mcg/actuation inhalation 07/17/23 aerosol inhaler aripiprazole 2 mg tablet 2 mg PO DAILY 07/17/23 bupropion HCl 150 mg 24 hr tablet, 150 mg PO QAM 07/16 extended release lhqhxznvmm-oqrgcxhliargp-nufahszt tab PO 07/17/23 50 mg-325 mg-40 mg tablet escitalopram oxalate 20 mg tablet 20 mg PO DAILY 07/16 gabapentin 300 mg capsule mg PO 07/17/23 quetiapine 50 mg tablet mg PO 07/17/23 Previous Rx's ?Medication ?Instructions ?Recorded erythromycin 5 mg/gram (0.5 %) eye 0.5 inch ophthalmic (eye) TID #3.5 04/11/22 ointment grams sulfacetamide sodium 10 % eye drops 2 drp ophthalmic ( eye) Q4H 10 days 04/11/22 #15 mL acetaminophen 500 mg capsule 1,000 mg (2 x 500 mg) PO Q6H PRN 07/17/23 fever #30 caps penicillin V potassium 500 mg 500 mg PO TID 10 days #3 0 tabs 07/17/23 tablet cyclobenzaprine 10 mg tablet 10 mg PO TID PRN muscle p ain #14 07/21/23 tabs ibuprofen 600 mg tablet 600 mg PO Q6H PRN pain #14 t abs 07/21/23 Allergies Allergy/AdvReac Type Severity Reaction Status Date / Time No Known Allergies Allergy Verified 03/11/25 13:52 [facility] Social History Social History Patient Tobacco Use Status: Never used Tobacco Advance Directives: No Advance Directives Information Provided: Yes Physical Exam ED Exam Exam: EXAM: Gen: Alert, awake, well appearing, well hydrated. Head: Atraumatic Eyes: Anicteric, Normal conjunctiva. ENT: Moist mucosa, no pallor. ? Neck: Supple. Skin: ?No observable rash or bruising on exposed or examined skin Respiratory: Breathing comfortably, No distress.Clear to auscultation bilaterally, symmetric chest expansion, No wheeze, rales, ronchi. Cardiovascular: Regular rate and rhythm. No murmurs or rub. Well perfused periphery, warm extremities. No edema. ? Abdominal: No focal tenderness. Soft, no objective distension. No palpable masses or obvious organomegaly. ?No guarding, no rebound tenderness or other peritoneal findings. : No flank tenderness. Neuro: Alert. Gross movement of all extremities intact. ? Psych: Calm. Cooperative. MSK: No grossly visible deformity. CHRONIC APPEARING MILD THICKENING OF THE SKIN PRETIBIAL REGION ABOUT 4 X 3 CM NOT WARM OR RED Vital signs: See flowsheet Vital Signs: Vital Signs - 24 hr 03/11/25 13:49 Temperature 97.5 F Pulse Rate 90 Respiratory Rate 18 Blood Pressure 163/69 H Pulse Oximetry 93 Oxygen Delivery Method Room Air BMI result Body Mass Index 24.7 Course Course Course Narrative: RME: 59-year-old female presents to ED for 8 months of right lower extremity pain and swelling but now but past 2 weeks feels heavy and has anterior nodules on right jones. Patient denies any trauma. Exam positive for erythematous nodules on anterior jones right lower extremity. Labs x-ray ultrasound chest CT ordered Medical Decision Making Medical Decision Making MDM Narrative: Medical Decision Making: CHRONIC LESION OF THE SKIN OF THE RIGHT JONES. NO OBJECTIVE EDEMA. SOFT COMPARTMENTS OF LOWER EXTREMITY. NEGATIVE DVT STUDY. CT WAS DONE FROM TRIAGE THOUGH I DO NOT SEE MUCH RESPIRATORY SYMPTOMS THERE IS A NODULE THAT NEEDS TO BE FOLLOWED UP OUTPATIENT. Preliminary Favored Differential Diagnosis: INFECTIOUS INFLAMMATORY OR RHEUMATOLOGIC SKIN FINDING UNCLEAR CAUSE UNLIKELY DVT among additional considered etiologies Testing Interpreted Independently: ?See below for details Radiology or Lab testing Results Reviewed: ?See below for details Consults: ?See below for details Independent Historians/External Chart Reviews: ?See below for details Social Determinants of Health Impacting MDM/Planning: ?See below for details Lab Data 03/11/25 14:31 03/11/25 14:31 Labs: Lab Results 03/11/25 Range/Units 14:31 WBC 6.8 (4.8-10.8) X10*3/uL RBC 4.91 (4.20-5.50) X10*6/uL Hgb 14.0 (12.0-16.0) g/dl Hct 42.5 (37.0-47.0) % MCV 86.6 (80.0-98.0) fL MCH 28.5 (27.0-33.0) pg MCHC 32.9 (31.0-35.0) g/dl RDW 13.0 (11.0-16.0) % Plt Count 295 (160-400) X10*3/uL MPV 8.8 L (9.4-12.3) fL Immature Gran % (Auto) 0.1 (0.0-0.4) % Neut % (Auto) 58.0 (45-73) % Lymph % (Auto) 32.6 (20-40) % Worth % (Auto) 6.9 (2-11) % Eos % (Auto) 1.8 (0-4) % Baso % (Auto) 0.6 (0-2) % Lymph # (Auto) 2.2 (1.2-4.9) X10*3/uL Worth # (Auto) 0.5 (0.1-1.2) X10*3/uL Eos # (Auto) 0.1 (0.0-0.4) X10*3/uL Baso # (Auto) 0.0 (0.0-0.2) X10*3/uL Abs Immat Gran (auto) 0.01 (0.00-0.03) X10*3/uL Absolute Neuts (auto) 3.9 (2.0-8.3) x10*3/uL Absolute Nucleated RBC 0.000 (0.0-0.012) X10*3/uL Nucleated RBC % (auto) 0.0 (0.0-0.2) /100WBC ESR 12 (0-20) MM/HR PT 11.4 (11.2-13.5) SEC INR 0.9 (0.9-1.1) APTT 33.4 (26.7-34.1) SEC Sodium 140 (135-145) mmol/L Potassium 3.7 (3.3-5.1) mmol/L Chloride 103 (96-108) mmol/L Carbon Dioxide 30 H (22-29) mmol/L Anion Gap 11 L (12-20) BUN 18 H (9-16) mg/dL Creatinine 0.68 (0.5-1.4) mg/dL Estim Creat Clear Calc 78.7 Estimated GFR > 60 Random Glucose 97 (60-115) mg/dL Calcium 9.8 (8.4-10.2) mg/dL Total Bilirubin 0.7 (0.0-1.0) mg/dL AST 37 H (5-31) U/L ALT 45 H (0-31) U/L Alkaline Phosphatase 92 (39-117) U/L C-Reactive Protein 0.62 H (< or = 0.50) mg/dL Total Protein 7.5 (6.5-8.0) g/dL Albumin 4.9 (3.5-5.0) g/dL Discharge Plan Discharge Clinical Impression: Skin lesion Patient Disposition: Home, Self-Care Instructions: Acute Rash (ED) Additional Instructions: _ DISCHARGE DIAGNOSES: Lung nodule no follow up as needed per Radiology recommendations Skin mass or lesion of unclear cause at this time HISTORY OF PRESENTATION: ?Skin problem for 8 weeks EMERGENCY DEPARTMENT COURSE,TESTS, TREATMENTS: While in the ED today you had a ultrasound that ruled out blood clot in the right leg you had a CT scan that showed small pulmonary nodules they do not need follow up and fatty liver disease which can be followed up by your PCP in his nonemergent lab work was reassuring DISCHARGE MEDICATIONS: ?[We have made no changes to your regular medication regimen] FOLLOW-UP: ?Call your primary or general physician soon as possible to discuss your symptoms, your ED visit and to discuss follow up plans Call your primary doctor for follow up INSTRUCTIONS ?& RETURN PRECAUTIONS: If any symptoms change first call your primary physician, if it is after-hours your primary doctors office should have a provider promotions executive producer you can speak with. If the symptoms are severe or very concerning to you then call 911 or return to the ED. Sky Armijo MD Emergency Physician [facility] Prescriptions: No Action ibuprofen 600 mg tablet 600 mg PO Q6H PRN (Reason: pain) Qty: 14 0RF cyclobenzaprine 10 mg tablet 10 mg PO TID PRN (Reason: muscle pain) Qty: 14 0RF sertraline 100 mg tablet 100 mg PO DAILY sertraline 50 mg tablet 50 mg PO DAILY bupropion HCl [Wellbutrin SR] 100 mg tablet sustained-release 12 hr 100 mg PO DAILY aripiprazole [Abilify] 5 mg tablet 5 mg PO DAILY trazodone 100 mg tablet 100 mg PO DAILY sulfacetamide sodium 10 % drops 2 drp ophthalmic (eye) Q4H 10 Days Qty: 15 0RF erythromycin 5 mg/gram (0.5 %) ointment 0.5 inch ophthalmic (eye) TID Qty: 3.5 0RF quetiapine 50 mg tablet PO bupropion HCl 150 mg tablet extended release 24 hr 150 mg PO QAM albuterol sulfate 90 mcg/actuation HFA aerosol inhaler inhalation ctbdukczss-rgaivhbyfgsgz-uibf 50-325-40 mg tablet PO escitalopram oxalate 20 mg tablet 20 mg PO DAILY aripiprazole 2 mg tablet 2 mg PO DAILY gabapentin 300 mg capsule PO penicillin V potassium 500 mg tablet 500 mg PO TID 10 Days Qty: 30 0RF acetaminophen 500 mg capsule 1,000 mg PO Q6H PRN (Reason: fever) Qty: 30 0RF Interventions: ED Discharge Assessment Last Done: 03/11/25 16:39 Discharge Date/Time: 03/11/25 16:40 Print Language: Spanish
[2025-03-11 14:37] LABS: MANUAL DIFF FLAG NO
[2025-03-11 14:38] LABS: Hematocrit 42.5 % (37.0-47.0); Hemoglobin 14.0 g/dl (12.0-16.0); Imm Gran Abs Auto 0.01 X10*3/uL (0.00-0.03); Imm Gran Pct Auto 0.1 % (0.0-0.4); Lymphocytes Absolute Auto 2.2 X10*3/uL (1.2-4.9); Mean Corpuscular HGB Conc 32.9 g/dl (31.0-35.0); Mean Corpuscular Hemoglobin 28.5 pg (27.0-33.0); Mean Corpuscular Volume 86.6 fL (80.0-98.0); NRBC Abs Auto 0.000 X10*3/uL (0.0-0.012); NRBC Pct Auto 0.0 /100WBC (0.0-0.2); Platelet Count 295 X10*3/uL (160-400); Red Blood Count 4.91 X10*6/uL (4.20-5.50); White Blood Count 6.8 X10*3/uL (4.8-10.8)
[2025-03-11 14:44] LABS: INTERNATIONAL NORM RATIO 0.9 (0.9-1.1); Prothrombin Time 11.4 SEC (11.2-13.5)
[2025-03-11 14:47] LABS: Partial Thromboplastin Time 33.4 SEC (26.7-34.1)
--- OUTSIDE RECORDS SUMMARY | 2025-03-11 14:53 | XMS_ITS | Encounter Summary ---
Author Organization [facility] Address [address] [place] [address] Phone Care Team Providers Care Pad Machine Operator Name Role Phone Gladis Pinedo VP ORGANIZATIONAL DEVELOPMENT Unavailable [phone] Gladis Pinedo VP [employer]GANIZATIONAL [employer]ELOPMENT Primary Care Provider [phone] Dennis Kam MD Unavailable [phone] Nancy Silverman STRUCTURES ASSEMBLER Primary Care Provider [phone] Bia Barry MD, MPH Unavailable + [phone] Kiara Molina MD Primary Care Provider [phone] Encounter Details Date Type Department Care Team (Late st Contact Info) Description 12/27/2021 Procedure [facility], Ct Scan - [address] [address] Social History Tobacco Use Types Packs/Day Years Used Date Smoking Tobacco: Former Cigarettes 1 30 0 08/09/1986 - 08/09/2016 Smokeless Tobacco: Never Alcohol Use Standard Drinks/Week Comments No 0 (1 standard drink = 0.6 oz pur e alcohol) Child or Family Care Answer Date Record ed Do you have problems with on e of the following making it difficult for you to work, study, or receive health care? No 11/25/2021 Education Answer Date Recorded Are you interested in help w ith more adult education (for example, completing high school, GED, job training, learning the Haitian language, technical skills, or developing parenting skills)? No 11/25/2021 Food Answer Date Recorded Within the past 6 months we worried whether our food would run out before we got money to buy more. Never True 11/25/2021 Within the past 6 months the food we bought just didn't last and we didn't have enough money to get more. Never True Residential Stability Answer Date Recor ded What is your housing situation today? I have carlos enrique sing 11/25/2021 How many times have you moved in the past 12 fri ths? One time 11/25/2021 Paying for Meds Answer Date Recorded Do you have trouble paying for medicines? No 11/25/2021 Paying Utility Bills Answer Date Record ed Do you have trouble paying your heating or elect ricity bill? No 11/25/2021 Transportation Answer Date Recorded Has the lack of transportati on kept you from medical appointments or from getting medications? No 11/25/2021 Unemployment Answer Date Recorded Are you currently unemployed or working on a part-time or temporary basis, and looking for work? No 11/25/2021 Comments Unknown Sex and Gender Information Value Date Recorded Sex Assigned at Female 10/14/2021 3:03 PM EDT Legal Sex Female 9:42 PM EDT Gender Identity Female 10/14/2021 3:03 PM EDT Sexual Orientation Straight 10/14/2021 3: 03 PM EDT documented as of this encounter Plan of Treatment Upcoming Encounters Date Type Department Care Team (Late st Contact Info) Description 08/08/2025 8:00 AM EDT Office Visit [facility] [address] [place] [address] Kiara Molina MD [address] [place] [address] [email or web address] documented as of this encounter Visit Diagnoses Not on filedocumented in this encounter Additional Health Concerns Infection Onset Date Last Indicated Resolved Time COVID-19 04/29/2023 04/29/2023 05/20/2023 1:22 AM EST Assessment Noted Time PHQ-2 Depression Total Score: 0 11/26/19 22 9:10 AM EDT documented as of this encounter Care Teams Pad Machine Operator Relationship Specialty Start Date End Date Gladis Pinedo VP [employer]ELOPMENT PCP - General Family Medicine 01/08/18 05/14/23 Nancy Silverman FNP [address] [place] [id number] PCP - General Nurse Practitioner 05/15/23 06/10/24 Kiara Molina MD [address] [place] [id number] PCP - General Family Medicine 06/11/24 Gladis Pinedo VP [employer]GANIZATIONAL [employer]ELOPMENT Historical LMR Provider 02/05/17 Dennis Kam MD [address] [place] [phone] Gastroenterology 05/24/22 Bia Barry MD, MPH [address] [place] [id number] Insurance Assigned Provider 01/25/24 documented as of this encounter Additional Source Comments The information contained in this document represents components of the legal health record. It is not the complete legal health record.[facility]
--- OUTSIDE RECORDS SUMMARY | 2025-03-11 14:53 | XMS_ITS | Encounter Summary ---
Author Organization [facility] Address [address] [place] [address] [address] [place] [address] Phone Care Team Providers Care Debubblizer Name Role Phone Xavi Nusrat Lima TOP SPOTTER Unavailable [phone] Gladis Pinedo TOP SPOTTER Unavailable [phone] Gladis Pinedo TOP SPOTTER Primary Care Provider [phone] Dennis Kam MD Unavailable [phone] Nancy Silverman COMPUTER OPERATIONS MANAGER Primary Care Provider [phone] Bia Barry MD, MPH Unavailable + [phone] Kiara Molina MD Primary Care Provider [phone] Encounter Details Date Type Department Care Team (Late st Contact Info) Description 11/22/2020 Procedure Pass [facility], Ct Scan - [address] [address] Social History Tobacco Use Types Packs/Day Years [...] work, study, or receive health care? No 11/20/2020 Education Answer Date Recorded Are you interested in help w ith more adult education (for example, completing high school, GED, job training, learning the [place] language, technical skills, or developing parenting skills)? No 11/20/2020 Are you concerned about learning? Not on file 11/20/2020 Not on file 11/20/2020 Not on file 11/20/2020 Food Answer Date Recorded Within the past 6 months we worried whether our food would run out before we got money to buy more. Never True 11/20/2020 Within the past 6 months the food we bought just didn't last and we didn't have enough money to get more. Never True Paying for Meds Answer Date Recorded Do you have trouble paying for medicines? No 11/20/2020 Paying Utility Bills Answer Date Record ed Do you have trouble paying your heating or elect ricity bill? No 11/20/2020 Transportation Answer Date Recorded Has the lack of transportati on kept you from medical appointments or from getting medications? No 11/20/2020 Comments Unknown Sex and Gender Information Value [...] Description 08/08/2025 8:00 AM EDT Office Visit [facility] [address] [facility] [address] [place] [address] Kiara Molina MD 15 [facility] [address] [place] [address] [email or web address] documented as of this encounter Visit Diagnoses Not on filedocumented in this encounter Additional Health Concerns Infection Onset Date Last Indicated Resolved Time COVID-19 04/29/2023 04/29/2023 05/20/2023 1:22 AM EST Assessment Noted Time PHQ-2 Depression Total Score: 0 11/23/19 21 2:57 PM EDT documented as of this encounter Care Teams Debubblizer Relationship Specialty Start Date End Date Gladis Pinedo, TOP SPOTTER [address] [place] [address] PCP - General Family Medicine 01/08/18 05/14/23 Nancy Silverman, COMPUTER OPERATIONS MANAGER [address] [place] [address] [email or web address] PCP - General Nurse Practitioner 05/15/23 06/10/24 Kiara Molina MD [address] [place] [address] [email or web address] PCP - General Family Medicine 06/11/24 Nusrat Hurley NP [address] [place] [address] Historical LMR Provider 02/05/17 2 Gladis Pinedo, TOP SPOTTER [address] [place] [address] Historical LMR Provider 02/05/17 Dennis Kam MD [address] [place] [address] Gastroenterology 05/24/22 Bia Barry MD, MPH [address] [place] [address] [email or web address] Insurance Assigned Provider 01/25/24 documented as of this encounter Additional Source Comments The information contained in this document represents components of the legal health record. It is not the complete legal health record.[facility]
--- OUTSIDE RECORDS SUMMARY | 2025-03-11 14:53 | XMS_ITS | Encounter Summary ---
Author Organization [facility] Address [address] [place] [address] Phone Care Team Providers Care Tooth Cutter Name Role Phone Gladis Pinedo BROOCH AND BRACELET MAKER Unavailable [phone] Gladis Pinedo BROOCH AND BRACELET MAKER Primary Care Provider [phone] Dennis Kam MD Unavailable [phone] Nancy Silverman CIGAR BANDER Primary Care Provider [phone] Bia Barry MD, MPH Unavailable + [phone] Kiara Molina MD Primary Care Provider [phone] Encounter Details Date Type Department Care Team (Late st Contact Info) Description 04/30/2022 Procedure Pass [facility] Admitting Dept Virtual Department [address] [place] [address] Social History Tobacco Use Types Packs/Day Years Used Date Smoking Tobacco: Former Cigarettes 1 30 0 08/09/1986 - 08/09/2016 Smokeless Tobacco: Never Alcohol Use Standard Drinks/Week Comments Yes 0 (1 standard drink = 0.6 oz pur e alcohol) rarely Child or Family Care Answer Date Record ed Do you have problems with on e of the following making it difficult for you to work, study, or receive health care? No 11/25/2021 Education Answer Date Recorded Are you interested in help w ith more adult education (for example, completing high school, GED, job training, learning the [place] language, technical skills, or developing parenting skills)? [...] and looking for work? No 11/25/2021 Comments No Sex and Gender Information Value Date Recorded Sex Assigned at Female 10/14/2021 3:03 PM EDT Legal Sex Female 9:42 PM EDT Gender Identity Female 10/14/2021 3:03 PM EDT Sexual Orientation Straight 10/14/2021 3: 03 PM EDT documented as of this encounter Plan of Treatment Upcoming Encounters Date Type Department Care Team (Late st Contact Info) Description 08/08/2025 8:00 AM EDT Office Visit [facility] [address] [facility] [address] [place] [address] Kiara Molina MD 15 [facility] [address] [place] [address] [email or web address] documented as of this encounter Visit Diagnoses Not on filedocumented in this encounter Additional Health Concerns Infection Onset Date Last Indicated Resolved Time COVID-19 04/29/2023 04/29/2023 05/20/2023 1:22 AM EST Assessment Noted Time PHQ-2 Depression Total Score: 0 11/26/19 22 9:10 AM EDT documented as of this encounter Care Teams Tooth Cutter Relationship Specialty Start Date End Date Gladis Pinedo BROOCH AND BRACELET MAKER PCP - General Family Medicine 01/08/18 05/14/23 Nancy Silverman FNP [address] [place] [address] PCP - General Nurse Practitioner 05/15/23 06/10/24 Kiara Molina MD [address] [place] [address] PCP - General Family Medicine 06/11/24 Gladis Pinedo BROOCH AND BRACELET MAKER Historical LMR Provider 02/05/17 Dennis Kam MD [address] [place] [address] Gastroenterology 05/24/22 Bia Barry MD, MPH [address] [place] [address] [email or web address] Insurance Assigned Provider 01/25/24 documented as of this encounter Additional Source Comments The information contained in this document represents components of the legal health record. It is not the complete legal health record.[facility]
--- OUTSIDE RECORDS SUMMARY | 2025-03-11 14:53 | XMS_ITS | Encounter Summary ---
Author Organization [facility] Address [address] [facility] [address] [place] [address] Phone Care Team Providers Care Mill Tender Warm Up Name Role Phone Xavi Nusrat Lima PSYCHIATRIC AIDE Unavailable [phone] Gladis Pinedo PSYCHIATRIC AIDE Unavailable [phone] Gladis Pinedo PSYCHIATRIC AIDE Primary Care Provider [phone] Dennis Kam MD Unavailable Nancy Silverman BASEBALL COACH Primary Care Provider Bia Barry MD, MPH Unavailable + [phone] Kaira Molina MD Primary Care Provider [phone] Encounter Details Date Type Department Care Team (Latest Contact Info) Description 12/25/2018 Ancillary [facility] [address] [place] [address] Spencer Nina DO [address] [facility] [address] [place] [address] [email or web address] Atheroscler of [place] artery of both legs with intermit claudication Social History Tobacco Use Types Packs/Day Years Used Date Smoking Tobacco: Former Cigarettes 1 30 0 08/09/1986 - 08/09/2016 Smokeless Tobacco: Never Alcohol Use Standard Drinks/Week Comments No 0 (1 standard drink = 0.6 oz pur e alcohol) Comments Unknown Sex and Gender Information Value [...] Description 08/08/2025 8:00 AM EDT Office Visit [facility] [place] [facility] [address] [facility] [address] [place] [address] Kiara Molina MD 15 [facility] 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 documented in this encounter Additional Health Concerns Infection Onset Date Last Indicated Resolved Time CoV-Exposed Comment:Recent close contact documented in the COVID-19 PCR/PRO order 05/09/2020 05/09/2020 05/19/2020 1:[address] COVID-19 04/29/2023 04/29/2023 05/20/2023 1:22 AM EST Assessment Noted Time PHQ-2 Depression Total Score: 0 08/13/19 1:56 PM EDT documented as of this encounter Care Teams Mill Tender Warm Up Relationship Specialty Start Date End Date Gladis Pinedo, PSYCHIATRIC AIDE [address] [place] [address] PCP - General Family Medicine 01/08/18 05/14/23 Nancy Silverman FNP [address] [place] [address] PCP - General Nurse Practitioner 05/15/23 06/10/24 Kiara Molina MD [address] [place] [address] [email or web address] PCP - General Family Medicine 06/11/24 Nusrat Hurley NP [address] [place] [address] Historical LMR Provider 02/05/17 2 Gladis Pinedo NP [address] [place] [address] Historical LMR Provider 02/05/17 Dennis Kam MD [address] [place] [address] Gastroenterology 05/24/22 Bia Barry MD, MPH [address] [place] [address] Insurance Assigned Provider 01/25/24 documented as of this encounter Additional Source Comments The information contained in this document represents components of the legal health record. It is not the complete legal health record.[facility]
--- OUTSIDE RECORDS SUMMARY | 2025-03-11 14:53 | XMS_ITS | Clinical Summary ---
Author Organization [facility] Address [address] [place] [address] Care Team Providers Care Telephone Directory Distributor Driver Name Role Phone Nancy Silverman GUILLERMO Primary Care Provider [phone] Allergies No known active allergies Medications albuterol HFA (PROAIR HFA ; PROVENTIL HFA ; VENTOLIN HFA) 90 mcg/actuation inhaler Inhale 2 Puffs into the lungs. 09/17/2022 Active buPROPion XL (WELLBUTRIN XL) 150 mg 24 hr tablet Take 1 Tablet by mouth. 09/19/2022 Active butalbital-acet aminophen-caffe ine (FIORICET, ESGIC) 50-325-40 mg per tablet 1 tab twice a week PRN 01/01/2023 Active cholecalciferol (VITAMIN D-3) 50 mcg (2,000 unit) tablet Take 1 Tablet by mouth. 03/26/2022 Active cyclobenzaprine (FLEXERIL) 5 mg tablet Take 1 Tablet by mouth. 09/19/2022 Active escitalopram (LEXAPRO) 20 mg tablet Take 1 Tablet by mouth. 12/19/2022 Active gabapentin (NEURONTIN) 300 mg capsule Take 2 Capsules by mouth. 10/01/2022 Active loratadine (CLARITIN) 10 mg tablet Take 1 Tablet by mouth. 09/19/2022 Active LORazepam (ATIVAN) 0.5 mg tablet Take 1 Tablet by mouth. 09/19/2022 Active QUEtiapine (SEROquel) 50 mg tablet Take 2 Tablets by mouth. 10/01/2022 Active sertraline (ZOLOFT) 100 mg tablet Take 150 mg by mouth. 08/31/2021 Active traZODone (DESYREL) 100 mg tablet TAKE ONE TABLET (100 MG TOTAL) BY MOUTH EVERY NIGHT AT BEDTIME 10/31/2021 Active Active Problems Problem Noted Date Diagnosed Date Generalized abdominal mass 01/22/2022 Immunizations Immunization Administration Dates Next Due Moderna SARS-CoV-2 COVID-19, mRNA, LNP-S, preservative free 01/14/2022,2020,07/01/2020 Surgical History Surgery Date Site/Laterality Comments HYSTERECTOMY PROCEDURE: HISTORICAL HYSTERECTOMY Medical History Medical History Date Comments Anxiety and depression DX:Anxiet y and depression Family History Medical History Relation Name Comments Lung cancer Mother Relation Name Status Comments Mother Social History Tobacco Use Types Packs/Day Years Used Date Smoking Tobacco: Former Smokeless Tobacco: Never Alcohol Use Standard Drinks/Week Comments Not Currently 0 (1 standard drink = 0.6 oz pur e alcohol) Comments Unknown Sex and Gender Information Value Date Recorded Sex Assigned at Not on file Legal Sex Female 3:08 PM EDT Gender Identity Not on file Sexual Orientation Not on file Obstetrics History Last Filed Vital Signs Vital Sign Reading Time Taken Comments Blood Pressure 131/86 04/20/2024 3:16 PM EST Pulse 85 04/20/2024 3:16 PM EST Temperature 36.7 C (98.1 F) 04/20/2024 3:16 PM EST Respiratory Rate - - Oxygen Saturation - - Inhaled Oxygen Concentration - - Weight 59.4 kg (131 lb) 04/20/2024 3:16 PM EST Height 160 cm (5' 3 ) 01/22/2022 4:20 PM EDT Body Mass Index 23.21 01/22/2022 4:20 PM EDT Plan of Treatment Health Maintenance Due Date Last Done Comments Breast Cancer Screening 1965 Colorectal Cancer Screening: Colonoscopy 1965 Hepatitis A Vaccines (1 of 2 - Risk 2-dose series) 07/30/1983 Cervical Cancer Screening: Pap Smear 1985 RSV Immunization Adult Patients (1 - Risk 50-74 years 1-dose series) 2014 HIV Screening 01/23/2022 Social Influencers of Health Screening 01/23/2022 Zoster Vaccines (2 of 2) 10/07/2023 08/12/2023 Lung Cancer Screening (Low Dose CT) 12/10/2023 12/09/2022 Depression Screening 04/21/2024 COVID-19 Vaccine ( - season) 2024 01/22/2023, 01/23/2022, 01/14/2022, Additional history exists Influenza Vaccine (#1) 2024 , 01/22/2023, 03/18/2018, Additional history exists Pneumococcal Vaccine: 50+ Years (3 of 3 - PCV20 or PCV21) 11/28/2026 11/28/2021, 12/23/2019, 01/04/2015, Additional history exists Cholesterol Screening (Lipid Panel) 12/20/2027 12/19/2022, 12/19/2022 DTaP,Tdap,and Td Vaccines (2 - Td or Tdap) 04/29/2028 04/29/2018 Hepatitis C Screening Completed 12/19/2021 HIB Vaccines Aged Out No longer eligi ble based on patient's age to complete this topic HPV Vaccines Aged Out No longer eligi ble based on patient's age to complete this topic Hepatitis B Vaccines Aged Out No long er eligible based on patient's age to complete this topic IPV Vaccines Aged Out No longer eligi ble based on patient's age to complete this topic MMR Vaccines Aged Out No longer eligi ble based on patient's age to complete this topic Meningococcal ACWY Vaccine Aged Out N o longer eligible based on patient's age to complete this topic Meningococcal B Vaccine Aged Out No l onger eligible based on patient's age to complete this topic RSV Immunization Patients Under 20 months Aged Out No longer eligible based on patient's age to complete this topic Varicella Vaccines Aged Out No longer eligible based on patient's age to complete this topic Procedures Procedure Name Priority Date/Time Associated Diagnosis Comments LIPID PANEL Routine 12/19/2022 from Last 3 Months or Most Recently Relevant to Health Maintenance Results * Lipid panel (12/19/2022) LDL/HDL Ratio 0 Comment:No Interpretation Triglycerides 0 mg/dL Comment:No Interpretation Cholesterol 0 mg/dL Comment:No Interpretation HDL 0 mg/dL Comment:No Interpretation LDL Cholesterol 0 mg/dL Comment:No Interpretation Blood Venous blood specimen / Unknown Historical Provider LAB BLOOD ORDERABLES Sonia carter Result from Last 3 Months or Most Recently Relevant to Health Maintenance Insurance [facility] Advance Directives Documents on File Type Date Recorded Patient Submarine Element Coordinator Expl anation Health Care Decision (hx) 02/24/2022 AD PACK DIRECTIVE Health Care Decision (hx) 02/24/2022 AD PACK DIRECTIVE Care Teams Telephone Directory Distributor Driver Relationship Specialty Start Date End Date Nancy Silverman FNP PCP - General Family Medicine 04/23/24
--- OUTSIDE RECORDS SUMMARY | 2025-03-11 14:53 | XMS_ITS | Encounter Summary ---
Author Organization [facility] Address [address] [facility] [address] [place] [address] Phone Care Team Providers Care Registered Safety Engineer Name Role Phone Gladis Pinedo TICK SEWER Unavailable [phone] Gladis Pinedo TICK SEWER Primary Care Provider [phone] Dennis Kam MD Unavailable [phone] Nancy Silverman HAND FRETTED INSTRUMENT MAKER Primary Care Provider [phone] Bia Barry MD, MPH Unavailable + [phone] Kiara Molina MD Primary Care Provider [phone] Encounter Details Date Type Department Care Team (Late st Contact Info) Description 04/29/2023 Nurse Triage [facility] Internal Medicine [address] [place] [address] Gladis Pinedo, TICK SEWER [address] [facility] [address] [place] [address] [email or web address] Social History Tobacco Use Types Packs/Day Years Used Date Smoking Tobacco: Former Cigarettes 1 30 0 08/09/1986 - 08/09/2016 Smokeless Tobacco: Never Alcohol Use Standard Drinks/Week Comments Not Currently 0 (1 standard drink = 0.6 oz pure alcohol) Sober since May 2022, hx of heavy ETOH use Child or Family Care Answer Date Record ed Do you have problems with on e of the following making it difficult for you to work, study, or receive health care? No 11/25/2021 Education Answer Date Recorded Are you interested in help w ith more adult education (for example, completing high school, GED, job training, learning the [place] language, technical skills, or developing parenting skills)? [...] housing situation today? I have carlos enrique buitrago 11/25/2021 How many times have you moved in the past 12 mon ths? One time 11/25/2021 Paying for Meds [...] basis, and looking for work? No 11/25/2021 Digital Access Answer Date Recorded No 09/14/2022 No 09/14/2022 Reliable internet access at home? Not on file 09/14/2022 Device with a working camera? Not on file Comments No Sex and Gender Information Value Date Recorded Sex Assigned at Female 10/14/2021 3:03 PM EDT Legal Sex Female 9:42 PM EDT Gender Identity Female 10/14/2021 3:03 PM EDT Sexual Orientation Straight 10/14/2021 3: 03 PM EDT documented as of this encounter Plan of Treatment Upcoming Encounters Date Type Department Care Team (Beni st Contact Info) Description 08/08/2025 8:00 AM EDT Office Visit [facility] [place] [facility] [address] [facility] [address] [place] [address] Kiara Molina MD [address] [address] [email or web address] documented as of this encounter Procedures Procedure Name Priority Date/Time Associated Diagnosis Comments SARS-COV-2 (COVID-19) AG BINAXNOW Routine 04/29/2023 documented in this encounter Results * (ABNORMAL) SARS-CoV-2 (COVID-19) Antigen (BinaxNOW) (04/29/2023) Source Nasal swab SARS-CoV-2 (COVID-19) antigen POSITIVE - Internal QCs acceptable(A ) NEGATIVE - Internal QCs acceptable 04/29/2023 us Historical Provider LAB POCT ENTER/EDIT ORDER INES Final Result documented in this encounter Visit Diagnoses Not on filedocumented in this encounter Additional Health Concerns Infection Onset Date Last Indicated Resolved Time COVID-19 04/29/2023 04/29/2023 05/20/2023 1:22 AM EST Assessment Noted Time PHQ-2 Depression Total Score: 0 04/21/19 6:49 AM EST documented as of this encounter Care Teams Registered Safety Engineer Relationship Specialty Start Date End Date Gladis Pinedo NP [email or web address] PCP - General Family Medicine 01/08/18 05/14/23 Nancy Silverman FNP [address] [place] [address] [email or web address] PCP - General Nurse Practitioner 05/15/23 06/10/24 Kiara Molina MD [address] [address] [email or web address] PCP - General Family Medicine 06/11/24 Galdis Pinedo NP [email or web address] Historical LMR Provider 02/05/17 Dennis Kam MD [address] [place] [address] [email or web address] Gastroenterology 05/24/22 Bia Barry MD, MPH [address] [facility] [address] [place] [address] [email or web address] Insurance Assigned Provider 01/25/24 documented as of this encounter Additional Source Comments The information contained in this document represents components of the legal health record. It is not the complete legal health record.[facility]
--- OUTSIDE RECORDS SUMMARY | 2025-03-11 14:53 | XMS_ITS | Encounter Summary ---
Author Organization [facility] Address [address] [place] [address] Phone Care Team Providers Care Hvac Specialist Name Role Phone Gladis Pinedo FUR TRAPPER Unavailable [phone] Gladis Pinedo FUR TRAPPER Primary Care Provider [phone] Dennis Kam MD Unavailable [phone] Nancy Silverman EMAIL MARKETING ASSISTANT Primary Care Provider [phone] Bia Barry MD, MPH Unavailable + [phone] Kiara Molina MD Primary Care Provider [phone] Encounter Details Date Type Department Care Team (Late st Contact Info) Description 11/28/2021 Procedure Pass [facility], Ct Scan - [address] [address] Social History Tobacco Use Types Packs/Day Years [...] high school, GED, job training, learning the [place] language, technical skills, or developing parenting skills)? [...] Description 08/08/2025 8:00 AM EDT Office Visit [facility] [place] [facility] [address] [facility] [address] [place] [address] Kiara Molina MD 15 [facility] [address] [place] [address] [email or web address] documented as of this encounter Visit Diagnoses Not on filedocumented in this encounter Additional Health Concerns Infection Onset Date Last Indicated Resolved Time COVID-19 04/29/2023 04/29/2023 05/20/2023 1:22 AM EST Assessment Noted Time PHQ-2 Depression Total Score: 0 11/26/19 22 9:10 AM EDT documented as of this encounter Care Teams Hvac Specialist Relationship Specialty Start Date End Date Gladis Pinedo FUR TRAPPER PCP - General Family Medicine 01/08/18 05/14/23 Nancy Silverman FNP [address] [place] [address] PCP - General Nurse Practitioner 05/15/23 06/10/24 Kiara Molina MD [address] [place] [address] PCP - General Family Medicine 06/11/24 Gladis Pinedo FUR TRAPPER Historical LMR Provider 02/05/17 Dennis Kam MD [address] [place] [address] Gastroenterology 05/24/22 Bia Barry MD, MPH [address] [place] [address] Insurance Assigned Provider 01/25/24 documented as of this encounter Additional Source Comments The information contained in this document represents components of the legal health record. It is not the complete legal health record.[facility]
--- OUTSIDE RECORDS SUMMARY | 2025-03-11 14:53 | XMS_ITS | Encounter Summary ---
Author Organization [facility] Address [address] [place] [address] Phone Care Team Providers Care Front Desk Lead Name Role Phone Gladis Pinedo GRIPS Unavailable [phone] Gladis Pinedo GRIPS Primary Care Provider [phone] Dennis Kam MD Unavailable [phone] Nancy Silverman NUTRITION INSTRUCTOR Primary Care Provider [phone] Bia Barry MD, MPH Unavailable + [phone] Kiara Molina MD Primary Care Provider [phone] Encounter Details Date Type Department Care Team (Late st Contact Info) Description 12/19/2022 Procedure Pass [facility], [address] [address] Social History Tobacco Use Types Packs/Day Years [...] high school, GED, job training, learning the Maced[place] language, technical skills, or developing parenting skills)? [...] PM EDT documented as of this encounter Last Filed Vital Signs Vital Sign Reading Time Taken Comments Blood Pressure - - Pulse - - Temperature - - Respiratory Rate - - Oxygen Saturation - - Inhaled Oxygen Concentration - - Weight 70.3 kg (155 lb) 12/21/2022 2:10 PM EDT Height 157.5 cm (5' 2 ) 12/21/2022 2:10 PM EDT Body Mass Index 28.35 12/21/2022 2:10 PM EDT documented in this encounter Plan of Treatment Upcoming Encounters Date Type Department Care Team (Late st Contact Info) Description 08/08/2025 8:00 AM EDT Office Visit [facility] [place] [facility] [address] [facility] [address] [place] [address] Kiara Molina MD [address] [address] [email or web address] documented as of this encounter Visit Diagnoses Not on filedocumented in this encounter Additional Health Concerns Infection Onset Date Last Indicated Resolved Time COVID-19 04/29/2023 04/29/2023 05/20/2023 1:22 AM EST Assessment Noted Time PHQ-2 Depression Total Score: 0 11/26/19 9:10 AM EDT documented as of this encounter Care Teams Front Desk Lead Relationship Specialty Start Date End Date Gladis Pinedo GRIPS PCP - General Family Medicine 01/08/18 05/14/23 Nancy Silverman FNP [address] [address] PCP - General Nurse Practitioner 05/15/23 06/10/24 Kiara Molina MD [address] [address] PCP - General Family Medicine 06/11/24 Gladis Pinedo GRIPS Historical LMR Provider 02/05/17 Dennis Kam MD [address] [place] [address] Gastroenterology 05/24/22 Bia Barry MD, MPH [address] [place] [address] [email or web address] Insurance Assigned Provider 01/25/24 documented as of this encounter Additional Source Comments The information contained in this document represents components of the legal health record. It is not the complete legal health record.[facility]
--- OUTSIDE RECORDS SUMMARY | 2025-03-11 14:53 | XMS_ITS | Clinical Summary ---
Author Organization [facility] Address [address] [place] [address] Phone Care Team Providers Care Director Bioinformatics Name Role Phone Ilana Pinedo NP Unavailable [phone] Dennis Kam MD Unavailable [phone] Bia Barry MD, MPH Unavailable [phone] Kiara Molina MD Primary Care Provider [phone] Allergies No known active allergies Medications cholecalciferol (VITAMIN D3) 2,000 unit tablet Take 1 tablet (2,000 Units total) by mouth daily. 30 tablet 11 4 Active escitalopram oxalate (LEXAPRO) 20 MG tablet Take 1 tablet (20 mg total) by mouth daily. 90 tablet 1 5 Active loratadine (CLARITIN) 10 mg tabletIndication s:Allergic rhinitis Take 1 tablet (10 mg total) by mouth daily. 30 tablet 11 5 Active buPROPion (WELLBUTRIN XL) 150 MG ER 24 hr tabletIndication s:Anxiety disorder,Major depressive disorder Take 1 tablet (150 mg total) by mouth daily. 90 tablet 3 5 Active albuterol 90 mcg/actuation inhalerIndicatio ns:Mild persistent asthma without complication,Chr onic obstructive pulmonary disease Inhale 2 puffs into the lungs every 6 (six) hours as needed for wheezing. 8.5 g 1 5 Active traZODone (DESYREL) 50 MG tablet Take 2 tablets (100 mg total) by mouth nightly at bedtime. 180 tablet 1 5 Active butalbital-aceta minophen-caffein e (FIORICET, ESGIC) 50-325-40 mg per tablet 1 tab twice a week PRN 6 tablet 5 Active LORazepam (ATIVAN) 0.5 MG tabletIndication s:Anxiety disorder Take 1 tablet (0.5 mg total) by mouth daily as needed for anxiety. 10 tablet 5 Active butalbital-aceta minophen-caffein e (FIORICET, ESGIC) 50-325-40 mg per tablet 1 tab twice a week PRN 6 tablet 5 03/04/20 25 Discontinu ed(Reorder ) LORazepam (ATIVAN) 0.5 MG tabletIndication s:Anxiety disorder Take 1 tablet (0.5 mg total) by mouth daily as needed for anxiety. 10 tablet 5 03/04/20 25 Discontinu ed(Reorder ) Active Problems Problem Noted Date Diagnosed Date Chronic migraine without aur a without status migrainosus, not intractable 08/12/2023 Assessment & Plan (08/12/2023 4:35 PM EDT): Discussed that I do not typically prescribed Fiorcet for migraine management in favor of more migraine specific medications available. We also discussed role of preventive versus abortive medication options. Given that she is scheduled for treatment evaluation with behavioral health, we have mutually agreed to continue Fiorcet treatment for two months until our follow up appointment. At that time, we will discuss further medication options for migraine Alcohol abuse, in remission 12/19/2022 Assessment & Plan (08/12/2023 4:28 PM EDT): Sober since May 2022. Continue therapy as scheduled Mucinous cystadenoma, borderline malignancy 03/21 Overview (04/01/2022): Mucinous borderline tumor 2021, Surgery by Dr Bernstein, [facility] Post-menopausal 11/22/2020 Hypertriglyceridemia 01/28/2020 Tubular adenoma of colon 12/23/2019 Varicose veins of bilateral lower extremities with other complications 10/12/2018 Assessment & Plan (01/04/2019 7:45 AM EDT): This patient has 8 seconds or more of reflux on the left we are going to ablate this I explained the risk benefits and alternatives including the rare occurrence of DVT. Assessment & Plan (10/12/2018 9:47 AM EDT): At this time I am going to order her arterial venous studies I will see her thereafter in follow-up. Allergic rhinitis 06/10/2017 Anemia due to acute blood loss 06/10/2017 Assessment & Plan (10/12/2018 9:47 AM EDT): No recurrences and she is barely taking any NSAIDs Anxiety disorder 06/10/2017 Assessment & Plan (09/30/2023 9:26 PM EDT): Current medications at end of behavioral health consultation include: Trazodone 50 mg by mouth at bedtime Escitalopram 20 mg by mouth daily Bupropion XL 150 mg by mouth daily Lorazepam 0.5 mg by mouth daily to be used sparingly for times of high anxiety/panic - limit 10 tabs per month. Assessment & Plan (08/12/2023 4:26 PM EDT): Discussed medication evaluation with behavioral health given concern for polypharmacy and ineffective treatment of symptoms per patient. Chronic obstructive pulmonary disease 06/10/2017 Assessment & Plan (10/12/2018 9:47 AM EDT): More than likely from prior smoking which she has stopped Major depressive disorder 06/10/2017 Assessment & Plan (09/30/2023 9:26 PM EDT): Current medications at end of behavioral health consultation include: Trazodone 50 mg by mouth at bedtime Escitalopram 20 mg by mouth daily Bupropion XL 150 mg by mouth daily Lorazepam 0.5 mg by mouth daily to be used sparingly for times of high anxiety/panic - limit 10 tabs per month. Assessment & Plan (01/04/2019 7:46 AM EDT): Present but stable at time Duodenal ulcer 06/10/2017 Gastroesophageal reflux disease without esophagi tis 06/10/2017 GI bleed due to NSAIDs 06/10/2017 Mild persistent asthma without complication 05/23 Assessment & Plan (08/12/2023 4:24 PM EDT): Notes intermittent symptoms. Does have albuterol rescue inhaler for as needed use Assessment & Plan (01/04/2019 7:46 AM EDT): This patient has mild symptoms more than likely due to smoking Insomnia 06/10/2017 Assessment & Plan (03/01/2024 2:50 PM EST): Pharmacologic treatment options for insomnia discussed, she prefers to discontinue doxepin and return to Trazodone 100 mg which was prescribed. Reviewed potential risks and benefits. She will contact the office for new or worsening symptoms. Encouraged continued sleep hygiene Assessment & Plan (01/27/2024 11:52 AM EDT): Discussed continued difficulty with sleep. Mutually agreed to discontinue trazodone due to ineffective. First line medication options discussed for sleep maintenance insomnia and doxepin prescribed after discussing potential risks, benefits, and side effects. Appointment for treatment evaluation discussed and scheduled Assessment & Plan (09/30/2023 9:27 PM EDT): Continue trazodone as prescribed for sleep. Discussed CBT for sleep and recommended application for phone, [employer]. She will contact the office should insomnia worsen. Chronic fatigue 06/10/2017 Trochanteric bursitis of left hip 06/10/2017 Assessment & Plan (01/27/2024 11:49 AM EDT): Pathophysiology of bursitis reviewed as well as initial conservative measures including rest, activity modification, and gentle exercise. At-home exercises given to patient which she will perform for four weeks, contact the office if symptoms worsen. Return precautions discussed Iliotibial band syndrome of left side 06/10/2017 Resolved Problems Problem Noted Date Diagnosed Date Resolved Date Raynaud's disease 06/10/2017 09/09/2018 Headache 06/10/2017 09/09/2018 Immunizations Immunization Administration Dates Next Due COVID-19 (Pre-02/10) Moderna Vaccine, Bivalent 6mo+ 01/23/2022 COVID-19 (Pre) Moderna Vaccine, mRNA, PF 01/14/2022,2020,07/01/2020 INFLUENZA, SPLIT VIRUS, TRIVALENT PF 01/26/2024, 12/22/2015 INFLUENZA, SPLIT VIRUS, TRIV ALENT W/ PRESERVATIVE IM 06/14/2008 Influenza Quadrivalent Preservative Free IM 07/2022,03/18/2018 Influenza Quadrivalent w/ Preservative IM 2017 Influenza trivalent preserva tive free intradermal 05/06/2013 Pneumococcal conjugate PCV13 11/28/2021 Pneumococcal polysaccharide PPSV23 12/23/2019,,06/14/2008 Tdap 04/29/2018 Zoster recombinant 08/12/2023 Family History Medical History Relation Comments No Known Problems Daughter No Known Problems Father Lung cancer Mother No Known Problems Sister Drug use disorder Son 1 No Known Problems Son 2 Relation Status Comments Daughter Alive Father Alive Mother smoker Sister Alive Son 1 Alive Son 2 Alive Social History Tobacco Use Types Packs/Day Years [...] work, study, or receive health care? No 08/05/2023 Education Answer Date Recorded Are you interested in help w ith more adult education (for example, completing high school, GED, job training, learning the [place] language, technical skills, or developing parenting skills)? No 08/05/2023 Are you concerned about learning? Not on file 08/05/2023 No 08/05/2023 Yes 08/05/2023 Food Answer Date Recorded Within the past 6 months we worried whether our food would run out before we got money to buy more. Never True 08/05/2023 Within the past 6 months the food we bought just didn't last and we didn't have enough money to get more. Never True Residential Stability Answer Date Recor ded What is your housing situation today? I have carlos enrique buitrago 08/05/2023 How many times have you move d in the past 12 months? Zero (I did not move) 08/05/2023 Paying for Meds Answer Date Recorded Do you have trouble paying for medicines? No 08/05/2023 Paying Utility Bills Answer Date Record ed Do you have trouble paying your heating or elect ricity bill? No 08/05/2023 Transportation Answer Date Recorded Has the lack of transportati on kept you from medical appointments or from getting medications? No 08/05/2023 Unemployment Answer Date Recorded Are you currently unemployed or working on a part-time or temporary basis, and looking for work? No 11/25/2021 Digital Access Answer Date Recorded No 08/05/2023 Yes 08/05/2023 Do you have reliable internet access at home? Ye s 08/05/2023 Do you have a device (e.g., phone, tablet, computer) with a working camera? Yes 08/05/2023 Intimate Partner Violence Answer Date R ecorded Are you denied basic needs s uch as food, clothing, or medical care? No 08/27/2023 In the past 12 months have y ou been in a relationship with a person who hurts, threatens, or tries to control you? No 08/27/2023 Are you denied basic needs s uch as food, clothing, or medical care? No 08/27/2023 In the past 12 months have y ou been in a relationship with a person who hurts, threatens, or tries to control you? No 08/27/2023 Comments No Sex and Gender Information Value Date Recorded Sex Assigned at Female 10/14/2021 3:03 PM EDT Legal Sex Female 9:42 PM EDT Gender Identity Female 10/14/2021 3:03 PM EDT Sexual Orientation Straight 10/14/2021 3: 03 PM EDT Last Filed Vital Signs Vital Sign Reading Time Taken Comments Blood Pressure 120/70 03/19/2024 1:33 PM EST Pulse 95 03/19/2024 1:33 PM EST Temperature 36.3 C (97.3 F) 12/19/2022 2:53 PM EDT Respiratory Rate 18 04/30/2022 12:09 PM EST Oxygen Saturation 99% 03/19/2024 1:33 PM EST Inhaled Oxygen Concentration - - Weight 61.5 kg (135 lb 9.6 oz) 01/26/2024 1:48 P M EDT Height 157.5 cm (5' 2 ) 08/12/2023 2:40 PM EDT Body Mass Index 24.8 08/12/2023 2:40 PM EDT Plan of Treatment Upcoming Encounters Date Type Department Care Team (Late st Contact Info) Description 08/08/2025 8:00 AM EDT Office Visit [facility] [place] [facility] [address] [place] [address] Kiara Molina MD [address] [facility] [address] [place] [address] [email or web address] Health Maintenance Due Date Last Done Comments SMOKING Hx and SMOKELESS TOBACCO SCREENING 1977 COLOGUARD 2009 FIT TEST 2009 FOBT 2009 SIGMOIDOSCOPY 2009 VIRTUAL COLONOSCOPY 2009 RSV VACCINE (1 - Risk 50-74 years 1-dose series) 2014 ZOSTER VACCINES (2 of 2) 10/07/2023 08/12/2023 INFLUENZA VACCINE (#1) 2024 , 01/22/2023, 03/18/2018, Additional history exists COVID-19 VACCINE ( - season) 2024 01/22/2023, 01/23/2022, 01/14/2022, Additional history exists DEPRESSION SCREENING 01/25/2025 01/26/2024, 01/26/20 24 MAMMOGRAM 08/11/2025 08/12/2023, 08/04/2022, 11/28/2021, Additional history exists PNEUMOCOCCAL VACCINES (50+ years) (4 of 4 - PCV20 or PCV21) 11/28/2026 11/28/2021, 12/23/2019, 01/04/2015, Additional history exists COLONOSCOPY 04/30/2027 04/30/2022, 04/11/2015 COLORECTAL CANCER SCREENING 04/30/2027 LIPID PANEL 12/20/2027 12/19/2022, 0804/2022, 12/19/2021, Additional history exists Adult Td,Tdap Booster 04/29/2028 04/29/2018 HIV ONE-TIME SCREENING (18-65 YEARS) Completed 01/25/2020 HEPATITIS C SCREENING Completed 12/19/2021 , 12/19/2021, 01/25/2020 HEPATITIS A VACCINES Aged Out No long er eligible based on patient's age to complete this topic HIB VACCINES Aged Out No longer eligi ble based on patient's age to complete this topic MENINGOCOCCAL VACCINES (ACWY) Aged Out No longer eligible based on patient's age to complete this topic MENINGOCOCCAL VACCINES (B) Aged Out N o longer eligible based on patient's age to complete this topic Medical Devices Not on file Procedures Procedure Name Priority Date/Time Associated Diagnosis Comments BI MAMMOGRAM SCREENING (BILATERAL) Routine 08/12/2023 3:24 PM EDT Screening mammogram for breast cancer LIPID PANEL Routine 12/19/2022 3:45 PM EDT Hypertriglyceridemi a ENDOSCOPY, COLON 04/30/2022 11:1 3 AM EST HEPATITIS C ANTIBODY, QUALITATIVE Routine 12/19/2021 11:00 AM EDT LFT elevation from Last 3 Months or Most Recently Relevant to Health Maintenance Results * (ABNORMAL) Lipid panel (12/19/2022 3:45 PM EDT) HDL 64 mg/dL [facility] Comment: Interpretation <40 mg/dL: Low HDL cholesterol (major risk factor for CHD) Greater than or equal to 60 mg/dL: High HDL cholesterol ( negative risk factor for CHD) HDL - cholesterol is affected by a number of factors, e.g. smoking, excerise, hormones, sex and age. CHOLESTEROL 236 0 - 240 mg/dL [facility] TRIGLYCERIDES 144 30 - 160 mg/dL [facility] LDL 143(H) 50 - 129 mg/dL [facility] Comment: LDL levels in terms of risk for coronary heart disease: <100 mg/dL: Optimal 100-129 mg/dL: Near or above optimal 130-159 mg/dL: Borderline high 160-189 mg/dL: High >190 mg/dL: Very High CARDIAC RISK RATIO 3.7 3.3 - 4.4 C [facility] Blood 12/19/2022 3:45 PM EDT 12/19/2022 3:49 PM EDT us Ilana Pinedo NP LAB BLOOD BKR ORDERABLES Final Result [facility] [address] [place] [address] * ENDOSCOPY, COLON (04/30/2022 11:13 AM EST) Narrative Transcriptions Dennis Kam MD - 04/30/2022 11:13 AM EST [facility] Patient Name: Taty Lau Attending MD:: DENNIS KAM MD Procedure Date: 04/30/2022 11:13 AM Date of : 1965 Age: 56 Admit Type: Outpatient Gender: Female Room: [place] [address] Referring MD: ILANA PINEDO Exam Type: Colonoscopy Medications: Monitored Anesthesia Care Procedure: Informed consent was obtained from the patientafter discussion of the indications, limitations, alternatives, benefits, and risks of the procedure. Risks specifically discussed include but are not limited to medication reactions, missed lesions, bleeding, perforation, or the need for emergent surgery. Throughout the procedure, the patient's blood pressure, pulse, end-tidal CO2, and oxygensaturations were monitored continuously. The Olympus adult variable colonoscope CF-TX018B #3 was introduced through the anus and advanced to the terminal ileum, with identification of theappendiceal orifice and IC valve. The colonoscopy was performed without difficulty. The patient tolerated the procedure well. The quality of the bowelpreparation was excellent. The terminal ileum, ileocecal valve, appendiceal orifice, and rectum werephotographed. Complications: No immediate complications. Estimated blood loss:None. Findings: The terminal ileum appeared normal. Examination of the right colon was repeated in retroflexion and again in NBI. Retroflexion wasalso performed in the rectum. Four sessile polyps were found in the cecum. The polyps were 3 to 6 mm in size. These polyps were removed with a cold snare. Resection and retrieval were complete. A 4 mm polyp was found in the transverse colon. The polyp was sessile. The polyp was removed with acold snare. Resection and retrieval were complete. Two sessile polyps were found in the descendingcolon. The polyps were 4 to 5 mm in size. These polypswere removed with a cold snare. Resection and retrieval were complete. A 4 mm polyp was found in the sigmoid colon. Thepolyp was sessile. The polyp was removed with a coldsnare. Resection and retrieval were complete. The exam was otherwise without abnormality. Impression: - The examined portion of the ileum was normal. - Four 3 to 6 mm polyps in the cecum, removed witha cold snare. Resected and retrieved. - One 4 mm polyp in the transverse colon, removedwith a cold snare. Resected and retrieved. - Two 4 to 5 mm polyps in the descending colon, removed with a cold snare. Resected andretrieved. - One 4 mm polyp in the sigmoid colon, removed witha cold snare. Resected and retrieved. - The examination was otherwise normal. Recommendation: - Patient has a contact number available for emergencies. The signs and symptoms of potential delayed complications were discussed with thepatient. Return to normal activities tomorrow. Written discharge instructions were provided to thepatient. - Await pathology results. - Repeat colonoscopy in 1 year for surveillance. Dennis Kam DENNIS KAM MD 04/30/2022 12:23:50 PM This report has been signed electronically. Number of Addenda: 0 Note Initiated On: 04/30/2022 11:13 AM Procedure Code(s): --- Professional --- 86478, Colonoscopy, flexible; with removal of tumor(s), polyp(s), or other lesion(s) by snare technique --- Technical --- 73811, Colonoscopy, flexible; with removal of tumor(s), polyp(s), or other lesion(s) by snare technique CPT copyright 2020 [employer]. All rights reserved. The codes documented in this report are preliminary and upon police pilot reviewmay be revised to meet current compliance requirements. Procedure Date: 04/30/2022 11:13:[address] [place] [id number] Ilana Pinedo NP GI PROCEDURE ORDERABLES Final R esult * Hepatitis C antibody, qualitative (12/19/2021 11:00 AM EDT) HCV NON-REACTIV E NON-REACTI VE [facility] Blood 12/19/2021 11:0 0 AM EDT 12/19/2021 11:04 AM EDT Ilana Pinedo NP LAB BLOOD BKR ORDERABLES Final Result [address] [address] * Mammogram Screening (Bilateral) (11/09/2019 12:11 PM EDT) Anatomical Region Laterality Modality Breast Left, Breast Right, Breast Bilateral Bila teral Breast Screening us Ilana Pinedo MANAGER REVENUE IMG MG EXAMS Final Result from Last 3 Months or Most Recently Relevant to Health Maintenance Insurance [address] [place] [address] [facility] [address] [place] [facility] PPO [address]PO [address] [place] [facility] PPO [address]PO [address] [place] [address] [facility] [address]PO [address] [place] [facility] PPO [address]PO [address] [place] [facility] [address]PO [address]PO [address] [place] [address] [facility] [address]PO [address] [place] [facility] PPO EPO [address] [place] [facility] PPO EPO Care Teams Director Bioinformatics Relationship Specialty Start Date End Date Kiara Molina MD [address] [place] [address] [email or web address] PCP - General Family Medicine 06/11/24 Ilana Pinedo NP [email or web address] Historical LMR Provider 02/05/17 Dennis Kam MD [address] [place] [address] [email or web address] Gastroenterology 05/24/22 Bia Barry MD, MPH [address] [place] [id number] [email or web address] Insurance Assigned Provider 01/25/24 Additional Source Comments The information contained in this document represents components of the legal health record. It is not the complete legal health record.[facility]
[2025-03-11 14:55] LABS: Alanine Aminotransferase 45 U/L (0-31); Albumin Level 4.9 g/dL (3.5-5.0); Alkaline Phosphatase 92 U/L (39-117); Anion Gap 11 (12-20); Aspartate Amino Transferase 37 U/L (5-31); Blood Urea Nitrogen 18 mg/dL (9-16); Calcium 9.8 mg/dL (8.4-10.2); Carbon Dioxide 30 mmol/L (22-29); Chloride 103 mmol/L (96-108); Creatinine Clr Calc Pharmacy 78.7; Estimated Glomerular Filt Rate > 60; Potassium 3.7 mmol/L (3.3-5.1); Sodium 140 mmol/L (135-145); Total Protein 7.5 g/dL (6.5-8.0)
[2025-03-11 15:33] LABS: Erythrocyte Sedimentation Rate 12 MM/HR (0-20)
[2025-03-11 16:39] VITALS: BP 163/69; PULSE 90; RESP 18; TEMP 36.4; O2SAT 93
== END 2025-03-11 16:40 | disposition home or self-care (01) ==
PROVIDERS: Physician Assistant; Emergency Provider Emergency Medicine; PCP Registered Nurse
DX: L98.8 Other specified disorders of the skin and subcutaneous tissue (principal); D86.9 Sarcoidosis, unspecified; R60.0 Localized edema; R06.02 Shortness of breath; R91.8 Other nonspecific abnormal finding of lung field; Z79.899 Other long term (current) drug therapy
CPT/HCPCS: 36415; 71250; 73590; 80053; 85025; 85610; 85652; 85730; 86140; 93971; 99282; 99284

== ENCOUNTER → 2025-03-11 13:54 | Outpatient (BNV) | payer BC, SELFPAY | PROVIDERS: PCP Registered Nurse; Visit Provider Radiology Diagnostic Radiology | DX: R91.8 Other nonspecific abnormal finding of lung field (principal); K76.0 Fatty (change of) liver, not elsewhere classified; M79.89 Other specified soft tissue disorders | CPT/HCPCS: 71250; 73590; 93971 ==

== ENCOUNTER 2025-04-16 08:37 | Emergency (ER) | payer BC, SELFPAY ==
--- NOTE | ~2025-04-16 | CT_ITS ---
CLINICAL HISTORY: abd pain, elevated bilirubin, n v CT abdomen and pelvis with contrast Comparison: CT/CO/SR - CT ABDOMEN PELVIS WITH IV CONTRAST - 07/21/23 11:27 EDT Findings: No consolidation or effusion. 3.6 cm enhancing nodule within the left lobe of the liver without change, most likely benign. Hypodense liver parenchyma. Partial duplication of the left renal collecting system. Otherwise unremarkable abdominal organs. 1.5 cm enhancing nodule within the fundus of the gallbladder without change. There is no biliary dilatation. No bowel obstruction, pneumoperitoneum, or pneumatosis. Status post hysterectomy. Otherwise unremarkable pelvic contents. Normal appendix. The bones are intact. IMPRESSION: 1. No acute abdominal disease. 2. Fatty infiltration of the liver. 3. 3.6 cm nodule within the left lobe of the liver without change. 4. 1.5 cm nodule within the fundus of the gallbladder without change. This document has been electronically signed by: Mayda Cisse MD on 04/16/2025 14:10:50
[2025-04-16 08:54] VITALS: BP 164/82; PULSE 94; RESP 20; TEMP 36.8; O2SAT 100; BMI 70.9
[2025-04-16 09:14] LABS: MANUAL DIFF FLAG NO
[2025-04-16 09:15] LABS: Hematocrit 43.4 % (37.0-47.0); Hemoglobin 14.7 g/dl (12.0-16.0); Imm Gran Abs Auto 0.08 X10*3/uL (0.00-0.03); Imm Gran Pct Auto 0.8 % (0.0-0.4); Lymphocytes Absolute Auto 1.5 X10*3/uL (1.2-4.9); Mean Corpuscular HGB Conc 33.9 g/dl (31.0-35.0); Mean Corpuscular Hemoglobin 28.4 pg (27.0-33.0); Mean Corpuscular Volume 83.8 fL (80.0-98.0); NRBC Abs Auto 0.000 X10*3/uL (0.0-0.012); NRBC Pct Auto 0.0 /100WBC (0.0-0.2); Platelet Count 454 X10*3/uL (160-400); Red Blood Count 5.18 X10*6/uL (4.20-5.50); White Blood Count 10.6 X10*3/uL (4.8-10.8)
[2025-04-16 09:36] LABS: Anion Gap 17 (12-20); Blood Urea Nitrogen 21 mg/dL (9-16); Calcium 10.1 mg/dL (8.4-10.2); Carbon Dioxide 26 mmol/L (22-29); Chloride 99 mmol/L (96-108); Creatinine Clr Calc Pharmacy 23.5; Estimated Glomerular Filt Rate > 60; Potassium 3.6 mmol/L (3.3-5.1); Sodium 138 mmol/L (135-145)
[2025-04-16 09:50] LABS: Resp Syncy Virus RNA Qual PCR NEGATIVE (Negative); SARS COV2 PCR INHOUSE NEGATIVE (Negative)
--- NOTE | 2025-04-16 10:08 | ED_ITS ---
HPI - General Adult General Chief complaint: Nausea/Vomiting/Diarrhea Stated complaint: n/v/d Time Seen by Provider: 04/16/25 11:50 Source: patient Mode of arrival: ambulatory Limitations: no limitations History of Present Illness ED Provider: Cassie Horton PA-C HPI narrative: Patient is a 59 year old female with no reported medical history presenting to the emergency department today with nausea, vomiting, and diarrhea. Patient states that over the last 3 days she has felt generally unwell with nausea, vomiting, and diarrhea. Patient states that she feels as though she is very dehydrated. Patient denies any other complaints at this time. Onset (ago): day(s) Relieving factors: none Exacerbating factors: none Associated symptoms: nausea/vomiting Treatments prior to arrival: none Related Data Home Medications ?Medication ?Instructions ?Recorded ?Confirmed aripiprazole 5 mg tablet (Abilify) 5 mg PO DAILY 02/14 bupropion HCl 100 mg tablet,12 hr 100 mg PO DAILY 01/20 11/07 sustained-release (Wellbutrin SR) sertraline 100 mg tablet 100 mg PO DAILY 02/15/20 sertraline 50 mg tablet 50 mg PO DAILY 02/15/20 trazodone 100 mg tablet 100 mg PO DAILY 02/15/20 albuterol sulfate 90 mcg/actuation inhalation 07/17/23 aerosol inhaler aripiprazole 2 mg tablet 2 mg PO DAILY 07/17/23 bupropion HCl 150 mg 24 hr tablet, 150 mg PO QAM 07/16 extended release lhonmspjjx-jxgolipaypxqo-rymctqfh tab PO 07/17/23 50 mg-325 mg-40 mg tablet escitalopram oxalate 20 mg tablet 20 mg PO DAILY 07/16 gabapentin 300 mg capsule mg PO 07/17/23 quetiapine 50 mg tablet mg PO 07/17/23 Previous Rx's ?Medication ?Instructions ?Recorded erythromycin 5 mg/gram (0.5 %) eye 0.5 inch ophthalmic (eye) TID #3.5 04/11/22 ointment grams sulfacetamide sodium 10 % eye drops 2 drp ophthalmic ( eye) Q4H 10 days 04/11/22 #15 mL acetaminophen 500 mg capsule 1,000 mg (2 x 500 mg) PO Q6H PRN 07/17/23 fever #30 caps penicillin V potassium 500 mg 500 mg PO TID 10 days #3 0 tabs 07/17/23 tablet cyclobenzaprine 10 mg tablet 10 mg PO TID PRN muscle p ain #14 07/21/23 tabs ibuprofen 600 mg tablet 600 mg PO Q6H PRN pain #14 t abs 07/21/23 Allergies Allergy/AdvReac Type Severity Reaction Status Date / Time No Known Allergies Allergy Verified 04/16/25 08:56 Review of Systems 2 Constitutional: Constitutional: Reports as per HPI Eyes: Eyes: Reports as per HPI ENT: Reports as per HPI Cardiovascular: Cardiovascular: Reports as per HPI Respiratory: Respiratory: Reports as per HPI Gastrointestinal: Gastrointestinal: Reports as per HPI Genitourinary: Genitourinary: Reports as per HPI Musculoskeletal: Musculoskeletal: Reports as per HPI Integumentary/Breasts: Skin/Breast: Reports as per HPI Neurologic: Reports as per HPI Psychiatric: Psychiatric: Reports as per HPI Endocrine: Endocrine: Reports as per HPI Hematologic/Lymphatic: Hematologic/Lymphatic: Reports as per HPI Allergic/Immunologic: Allergic/Immunologic: Reports as per HPI [facility] Past Medical History Attestation statement: The following information was validated with the patient. Source: old records reviewed and nursing notes reviewed Social History Social History Patient Tobacco Use Status: Never used Tobacco Smoked in Last 30 Days: No Use of substances other than those prescribed or required for medical reasons: No Advance Directives: No Advance Directives Information Provided: Yes Do you have a plan to hurt others: No Plan Patient : No Physical Exam ED Vital Signs: Vital Signs - 24 hr 04/16/25 08:54 04/16/25 14:54 04/16/25 16:10 Temperature 98.3 F 97.7 F 97.7 F Pulse Rate 94 79 79 Respiratory Rate 20 16 16 Blood Pressure 164/82 H 138/70 138/70 Pulse Oximetry 100 98 98 Oxygen Delivery Method Room Air Room Air Room Air BMI result Body Mass Index 70.9 Const General: cooperative, alert and awake Orientation/consciousness: patient oriented x3 HENMT Head: Yes normal to inspection and Yes atraumatic Ears: hearing grossly normal bilaterally and external ears normal General nose exam: Normal external nose present, no nasal discharge noted and no epistaxis Face and sinus: Yes normal facial exam, No abrasion and No laceration Mouth: Normal oral and palatal mucosa present, no drooling and no muffled voice Eyes General: appearance normal, both eyes and all related structures Periorbital: periorbital findings normal Eyelids: Yes eyelids normal Conjunctivae: conjunctivae normal Pupils: Equal, round and reactive pupils present EOM: EOMs intact bilaterally Resp Effort & Inspection: normal respiratory effort and able to speak in complete sentences Neuro General: patient oriented x3, moves all extremities and CN's II-XI intact bilaterally Cranial nerves: Yes Equal, round and reactive pupils present Cognition (Neuro): normal cognition Extrem General: Yes full ROM Psych Appearance: grossly normal Mental Status: mental status grossly normal Attitude: cooperative Course Course Course Narrative: Rapid medical examination performed in triage by Cassie Horton PA-C: Patient is a 59 year old female presenting to the emergency department with nausea, vomiting, diarrhea, and abdominal pain. Detailed physical exam and review of systems are deferred to the bulk sausage casing tier off. Labs ordered. Patient placed back in the waiting room pending room availability and results. Medications Administered Discontinued Medications Generic Name Dose Route Start Last Admin Trade Name Bernardo PRN Reason Stop Dose Admin Diazepam 2.5 mg 04/16/25 14:10 04/16/25 14:22 Diazepam 10 Mg/2 Ml Cartridge IVPUSH 04/16/25 14:11 2.5 mg STAT STA Administration Diphenhydramine HCl 12.5 mg 04/16/25 14:10 04/16/25 14:22 Diphenhydramine Hcl 50 Mg/Ml Vial IVPUSH 04/16/25 14:11 12.5 mg ONCE ONE Administration Sodium Chloride 1,000 mls @ 999 mls/hr 04/16/25 12:00 04/16/25 15:54 Ns IV 04/16/25 14:00 Infused .Q1H1M RON Infusion Magnesium Sulfate/Dextrose 1 gm in 100 mls @ 300 mls/hr 04/16/25 14:33 04/16/25 15:54 Magnesium Sulfate/D5w IV 04/16/25 14:52 Infused ONCE ONE Infusion Iohexol 100 ml 04/16/25 12:45 04/16/25 12:45 Iohexol 350 Mg/Ml 100 Ml Infus..Btl IV 04/16/25 12:46 85 ml ONCE ONE Administration Metoclopramide HCl 10 mg 04/16/25 14:10 04/16/25 14:23 Metoclopramide Hcl 10 Mg/2 Ml Vial IVPUSH 04/16/25 14:11 10 mg ONCE ONE Administration Ondansetron HCl 4 mg 04/16/25 11:51 04/16/25 12:21 Ondansetron Hcl 4 Mg/2 Ml Vial IVPUSH 04/16/25 11:52 4 mg ONCE ONE Administration Medical Decision Making Medical Decision Making MDM Narrative: Patient is a 59 year old female with no reported medical history presenting to the emergency department today with nausea, vomiting, and diarrhea. Patient's physical exam was as noted in the physical exam portion of this note. Patient's blood work was unremarkable. Patient's EKG showed no obvious evidence of arrhythmia, ischemia, or infarct. Patient's CT abdomen/pelvis showed fatty infiltration of the liver, 3.6cm nodule of the left lobe of the liver which has been previously noted and patient is aware of, 1.5cm nodule within the fundus of the gallbladder which has been previously noted and the patient is aware of. Patient received IV fluids, Zofran, Reglan, Benadryl, and Valium which, upon re- evaluation, she stated it helped her symptoms significantly. Patient was able to tolerate PO intake while in the department. I explained my physical exam findings as well as all test results to the patient. I answered all questions asked by the patient. I stressed the importance of the patient taking her medication as directed (either prescribed or as the over the counter packaging recommends). I stressed the importance of the patient following up with her primary care provider. I stressed the importance of the patient returning to the emergency department immediately if her symptoms were to worsen or if she were to develop any dizziness, shortness of breath, difficulty breathing, chest pain, blurry vision, loss of vision, nausea, vomiting, abdominal pain, fever, chills, back pain, or any other complaints. Patient verbalized agreement and understanding with this treatment plan and discharge. Differential Diagnosis Differential Diagnoses: The differential diagnosis associated with the presentation includes Colitis Gastroenteritis Norovirus Abdominal pain Nausea Vomiting Viral illness COVID-19 Influenza Admission/Observation Consideration of admission/observation: Escalation of care including admission/observation considered Patient would have been admitted to the hospital had her work up had any findings where hospital admission was appropriate and her clinical presentation warranted hospital admission. Lab Data MDM Lab Attestation statement: I reviewed the patient's lab results. My interpretation of these results are in the MDM Rationale portion of this note. 04/16/25 09:05 04/16/25 09:05 Labs: Lab Results 04/16/25 04/16/25 Range/Units 09:05 14:51 WBC 10.6 (4.8-10.8) X10*3/uL RBC 5.18 (4.20-5.50) X10*6/uL Hgb 14.7 (12.0-16.0) g/dl Hct 43.4 (37.0-47.0) % MCV 83.8 (80.0-98.0) fL MCH 28.4 (27.0-33.0) pg MCHC 33.9 (31.0-35.0) g/dl RDW 12.4 (11.0-16.0) % Plt Count 454 H D (160-400) X10*3/uL MPV 8.4 L (9.4-12.3) fL Immature Gran % (Auto) 0.8 H (0.0-0.4) % Neut % (Auto) 76.9 H (45-73) % Lymph % (Auto) 14.1 L (20-40) % [place] % (Auto) 7.1 (2-11) % Eos % (Auto) 0.6 (0-4) % Baso % (Auto) 0.5 (0-2) % Lymph # (Auto) 1.5 (1.2-4.9) X10*3/uL [place] # (Auto) 0.8 (0.1-1.2) X10*3/uL Eos # (Auto) 0.1 (0.0-0.4) X10*3/uL Baso # (Auto) 0.1 (0.0-0.2) X10*3/uL Abs Immat Gran (auto) 0.08 H (0.00-0.03) X10*3/uL Absolute Neuts (auto) 8.2 (2.0-8.3) x10*3/uL Absolute Nucleated RBC 0.000 (0.0-0.012) X10*3/uL Nucleated RBC % (auto) 0.0 (0.0-0.2) /100WBC Sodium 138 (135-145) mmol/L Potassium 3.6 (3.3-5.1) mmol/L Chloride 99 (96-108) mmol/L Carbon Dioxide 26 (22-29) mmol/L Anion Gap 17 (12-20) BUN 21 H (9-16) mg/dL Creatinine 0.72 (0.5-1.4) mg/dL Estim Creat Clear Calc 23.5 Estimated GFR > 60 Random Glucose 130 H (60-115) mg/dL Calcium 10.1 (8.4-10.2) mg/dL Magnesium 2.3 (1.6-2.6) mg/dL Total Bilirubin 1.1 H (0.0-1.0) mg/dL Direct Bilirubin 0.4 (0.0-0.5) mg/dL AST 28 (5-31) U/L ALT 29 (0-31) U/L Alkaline Phosphatase 97 (39-117) U/L Total Protein 7.8 (6.5-8.0) g/dL Albumin 4.6 (3.5-5.0) g/dL Lipase 18 (8-78) U/L Urine Color Yellow Urine Appearance Clear Urine pH 6.5 (5.0-9.0) Ur Specific [place] >= 1.030 H (1.005-1.025) Urine Protein Negative (Neg-Trace) mg/dL Urine Glucose (UA) Negative (Negative) mg/dL Urine Ketones 15 (Negative) mg/dL Urine Blood Negative (Negative) Urine Nitrite Negative (Negative) Ur Leukocyte Esterase Negative (Negative) Influenza Type A (PCR) NEGATIVE (Negative) Influenza Type B (PCR) NEGATIVE (Negative) RSV RNA Qual (PCR) NEGATIVE (Negative) SARS-CoV-2 RNA (RT-PCR) NEGATIVE (Negative) Independent Interpretation I performed an independent interpretation of an: EKG and CT Scan Interpretation: My interpretation is in agreement with the radiologist's impression of this imaging study as written below. CLINICAL HISTORY: abd pain, elevated bilirubin, n v CT abdomen and pelvis with contrast Comparison: CT/OH/SR - CT ABDOMEN PELVIS WITH IV CONTRAST - 07/21/23 11:27 EDT Findings: No consolidation or effusion. 3.6 cm enhancing nodule within the left lobe of the liver without change, most likely benign. Hypodense liver parenchyma. Partial duplication of the left renal collecting system. Otherwise unremarkable abdominal organs. 1.5 cm enhancing nodule within the fundus of the gallbladder without change. There is no biliary dilatation. No bowel obstruction, pneumoperitoneum, or pneumatosis. Status post hysterectomy. Otherwise unremarkable pelvic contents. Normal appendix. The bones are intact. IMPRESSION: 1. No acute abdominal disease. 2. Fatty infiltration of the liver. 3. 3.6 cm nodule within the left lobe of the liver without change. 4. 1.5 cm nodule within the fundus of the gallbladder without change. This document has been electronically signed by: Mayda Cisse MD on 04/16/2025 14:10:50 Dictated By: Mayda Cisse MD Signed By: Electronically signed by Mayda Cisse MD 04/16/25 1412 I independently interpreted this EKG and am in agreement with the below findings: Vent. Rate: 80 BPM Atrial Rate: 80 BPM P-R Int: 172 ms QRS Dur: 84 ms QT Int: 422 ms P-R-T Axes: 80 57 61 degrees QTcB Int: 486 ms Normal sinus rhythm No previous ECGs available DD/ 1153 Radiology Impression Discussion of test interpretation with radiology: I have reviewed the radiologist's reading. Critical Care Time Critical Care Time Critical Care Time: Yes Total Critical Care Time: 48 Attestation: I spent 48 minutes of Critical Care Time with this patient. This does not include time spent on separately reported billable procedures. Discharge Plan Discharge Clinical Impression: Viral illness Nausea & vomiting Qualifiers: Vomiting type: unspecified Qualified Code(s): R11.2 - Nausea with vomiting, unspecified Patient Disposition: Home, Self-Care Instructions: Acute Nausea and Vomiting (DC), Viral Syndrome (ED) Additional Instructions: Your work up today was reassuring there is no EMERGENT cause for your symptoms. I believe you are experiencing a viral illness that will improve with time. IF you are prescribed home medications and/or you are taking over the counter medications at home - it is very important you continue to do so as prescribed / directed unless told otherwise by a healthcare provider. Follow up with your primary care provider. Do your best to stay well hydrated and rest. Return to the emergency department immediately if your symptoms worsen or if you develop any numbness, tingling, dizziness, shortness of breath, difficulty breathing, chest pain, blurry vision, loss of vision, nausea, vomiting, abdominal pain, fever, chills, back pain, or any other complaints. Please see the information below about our Patient Portal. If you are not yet enrolled in the [facility] Patient Portal, you will receive an enrollment email invitation following your visit to any [facility] setting. You may also self-enroll in the Patient Portal by visiting our website: [email or web address] The following information is required to access the Patient Portal: - Your [facility] Medical Record Number - Your personal home email address (must match what is in your electronic medical record, Registration staff can assist with this) - Name - Date of Capabilities of the Patient Portal: - Message some providers - View upcoming appointments - Access your health summary, medical history, and visit history - View current conditions and allergies - View procedure and lab results - View your medications, including guidelines, side effects, and precautions - Complete pre-appointment questionnaires requested by your provider - Ready summary reports of your office visits and procedures To access the Patient Portal Mobile Sue, follow these directions: - Search [employer] in the Sue Store or [employer] [facility] - Download the Sue - Search for [facility] - Enter your login/password Prescriptions: No Action ibuprofen 600 mg tablet 600 mg PO Q6H PRN (Reason: pain) Qty: 14 0RF cyclobenzaprine 10 mg tablet 10 mg PO TID PRN (Reason: muscle pain) Qty: 14 0RF sertraline 100 mg tablet 100 mg PO DAILY sertraline 50 mg tablet 50 mg PO DAILY bupropion HCl [Wellbutrin SR] 100 mg tablet sustained-release 12 hr 100 mg PO DAILY aripiprazole [Abilify] 5 mg tablet 5 mg PO DAILY trazodone 100 mg tablet 100 mg PO DAILY sulfacetamide sodium 10 % drops 2 drp ophthalmic (eye) Q4H 10 Days Qty: 15 0RF erythromycin 5 mg/gram (0.5 %) ointment 0.5 inch ophthalmic (eye) TID Qty: 3.5 0RF quetiapine 50 mg tablet PO bupropion HCl 150 mg tablet extended release 24 hr 150 mg PO QAM albuterol sulfate 90 mcg/actuation HFA aerosol inhaler inhalation nacfqyeswl-fcjonavglktuc-cbln 50-325-40 mg tablet PO escitalopram oxalate 20 mg tablet 20 mg PO DAILY aripiprazole 2 mg tablet 2 mg PO DAILY gabapentin 300 mg capsule PO penicillin V potassium 500 mg tablet 500 mg PO TID 10 Days Qty: 30 0RF acetaminophen 500 mg capsule 1,000 mg PO Q6H PRN (Reason: fever) Qty: 30 0RF Referrals: Nancy Silverman FNP-BC [Primary Care Provider, Internal Medicine] Stand Alone Forms: Work/School Release Interventions: ED Discharge Assessment Last Done: 04/16/25 16:10 Discharge Date/Time: 04/16/25 16:10 Print Language: German
[2025-04-16 10:27] LABS: Alanine Aminotransferase 29 U/L (0-31); Albumin Level 4.6 g/dL (3.5-5.0); Alkaline Phosphatase 97 U/L (39-117); Aspartate Amino Transferase 28 U/L (5-31); Lipase 18 U/L (8-78); Magnesium 2.3 mg/dL (1.6-2.6); Total Protein 7.8 g/dL (6.5-8.0)
--- NOTE | 2025-04-16 11:52 | ECG_ITS ---
Test Reason : QT ELEVATION Blood Pressure : */* mmHG Vent. Rate : 80 BPM Atrial Rate : 80 BPM P-R Int : 172 ms QRS Dur : 84 ms QT Int : 422 ms P-R-T Axes : 80 57 61 degrees QTcB Int : 486 ms Normal sinus rhythm Prolonged QT Abnormal ECG No previous ECGs available Referred By: Cassie Horton Electronically Signed By: KARIME DOZIER MD
--- OUTSIDE RECORDS SUMMARY | 2025-04-16 11:55 | XMS_ITS | Encounter Summary ---
Author Organization [facility] Address [address] [place] [address] Phone Care Team Providers Care English Teacher Name Role Phone Gladis Pinedo NP Unavailable [phone] Gladis Pinedo NEWS VIDEO EDITOR Primary Care Provider [phone] Dennis Kam MD Unavailable [phone] Nancy Silverman SMOG TECHNICIAN Primary Care Provider Bia Barry MD, MPH Unavailable + [phone] Kiara Molina MD Primary Care Provider [phone] Encounter Details Date Type Department Care Team (Late st Contact Info) Description 04/29/2023 Nurse Triage [facility] [address] [place] [address] Gladis Pinedo, NEWS VIDEO EDITOR [address] [facility] [address] [place] [address] Social History Tobacco Use Types Packs/Day Years [...] high school, GED, job training, learning the Danish language, technical skills, or developing parenting skills)? [...] Description 08/08/2025 8:00 AM EDT Office Visit [facility] [address] [facility] [address] [place] [address] Kiara Molina MD [address] [address] [email or web address] documented as of this encounter Procedures Procedure [...] documented as of this encounter Care Teams English Teacher Relationship Specialty Start Date End Date Gladis Pinedo NP [email or web address] PCP - General Family Medicine 01/08/18 05/14/23 Nancy Silverman FNP [address] [place] [id number] [email or web address] PCP - General Nurse Practitioner 05/15/23 06/10/24 Kiara Molina MD [address] [address] [email or web address] PCP - General Family Medicine 06/11/24 Gladis Pinedo NP [email or web address] Historical LMR Provider 02/05/17 Dennis Kam MD [address] [place] [id number] [email or web address] Gastroenterology 05/24/22 Bia Barry MD, MPH [address] [facility] [address] [place] [address] [email or web address] Insurance Assigned Provider 01/25/24 documented as of this encounter Additional Source Comments The information contained in this document represents components of the legal health record. It is not the complete legal health record.[facility]
--- OUTSIDE RECORDS SUMMARY | 2025-04-16 11:55 | XMS_ITS | Encounter Summary ---
Author Organization [facility] Address [address] [facility] [address] [place] [address] Phone Care Team Providers Care Senior Qa Engineer Name Role Phone Gladis Pinedo CLOTH DESIZING RANGE OPERATOR CHIEF Unavailable [phone] Gladis Pinedo CLOTH DESIZING RANGE OPERATOR CHIEF Primary Care Provider [phone] Dennis Kam MD Unavailable [phone] Nancy Silverman COOK BOAT Primary Care Provider [phone] Bia Barry MD, MPH Unavailable + [phone] Kiara Molina MD Primary Care Provider [phone] Encounter Details Date Type Department Care Team (Late st Contact Info) Description 12/19/2022 Procedure Pass [facility], [address] [address] Social History Tobacco Use Types Packs/Day Years [...] high school, GED, job training, learning the Japanese language, technical skills, or developing parenting skills)? [...] Description 08/08/2025 8:00 AM EDT Office Visit [facility] [address] [facility] [address] [place] [address] Kiara Molina MD 15 [facility] [address] [place] [address] [email or web address] documented as of this encounter Visit Diagnoses Not on filedocumented in this encounter Additional Health Concerns Infection Onset Date Last Indicated Resolved Time COVID-19 04/29/2023 04/29/2023 05/20/2023 1:22 AM EST Assessment Noted Time PHQ-2 Depression Total Score: 0 11/26/19 9:10 AM EDT documented as of this encounter Care Teams Senior Qa Engineer Relationship Specialty Start Date End Date Gladis Pinedo CLOTH DESIZING RANGE OPERATOR CHIEF PCP - General Family Medicine 01/08/18 05/14/23 Nancy Silverman FNP [address] [address] PCP - General Nurse Practitioner 05/15/23 06/10/24 Kiara Molina MD [address] [address] PCP - General Family Medicine 06/11/24 Gladis Pinedo CLOTH DESIZING RANGE OPERATOR CHIEF Historical LMR Provider 02/05/17 Dennis Kam MD [address] [place] [address] Gastroenterology 05/24/22 Bia Barry MD, MPH [address] [place] [address] [email or web address] Insurance Assigned Provider 01/25/24 documented as of this encounter Additional Source Comments The information contained in this document represents components of the legal health record. It is not the complete legal health record.[facility]
--- OUTSIDE RECORDS SUMMARY | 2025-04-16 11:55 | XMS_ITS | Encounter Summary ---
Author Organization [facility] Address [address] [place] [address] Phone Care Team Providers Care Multiple Launch Rocket System Crewmember Name Role Phone Gladis Pinedo INSTRUMENT AND CONTROL SERVICE PERSON Unavailable [phone] Gladis Pinedo INSTRUMENT AND CONTROL SERVICE PERSON Primary Care Provider [phone] Dennis Kam MD Unavailable [phone] Nancy Silverman MACHINE FILLER SHREDDER Primary Care Provider [phone] Bia Barry MD, MPH Unavailable + [phone] Kiara Molina MD Primary Care Provider [phone] Encounter Details Date Type Department Care Team (Late st Contact Info) Description 04/30/2022 Procedure Pass [facility] Endoscopy Admitting Dept Virtual Department [address] [place] [address] Social History Tobacco Use Types Packs/Day Years [...] high school, GED, job training, learning the Iranian language, technical skills, or developing parenting skills)? [...] Description 08/08/2025 8:00 AM EDT Office Visit [facility] [address] [facility] [address] [place] [address] Kiara Molina MD [address] [facility] [address] [place] [address] [email or web address] documented as of this encounter Visit Diagnoses Not on filedocumented in this encounter Additional Health Concerns Infection Onset Date Last Indicated Resolved Time COVID-19 04/29/2023 04/29/2023 05/20/2023 1:22 AM EST Assessment Noted Time PHQ-2 Depression Total Score: 0 11/26/19 9:10 AM EDT documented as of this encounter Care Teams Multiple Launch Rocket System Crewmember Relationship Specialty Start Date End Date Gladis Pinedo INSTRUMENT AND CONTROL SERVICE PERSON PCP - General Family Medicine 01/08/18 05/14/23 Nancy Silverman FNP [address] [place] [address] PCP - General Nurse Practitioner 05/15/23 06/10/24 Kiara Molina MD [address] [place] [address] PCP - General Family Medicine 06/11/24 Gladis Pinedo INSTRUMENT AND CONTROL SERVICE PERSON Historical LMR Provider 02/05/17 Dennis Kam MD [address] [place] [address] Gastroenterology 05/24/22 Bia Barry MD, MPH [address] [place] [address] [email or web address] Insurance Assigned Provider 01/25/24 documented as of this encounter Additional Source Comments The information contained in this document represents components of the legal health record. It is not the complete legal health record.[facility]
--- OUTSIDE RECORDS SUMMARY | 2025-04-16 11:55 | XMS_ITS | Encounter Summary ---
Author Organization [facility] Address [address] [place] [address] Phone Care Team Providers Care Market Specialist Name Role Phone Gladis Pinedo NP Unavailable [phone] Dennis Kam MD Unavailable [phone] Bia Barry MD, MPH Unavailable +- [phone] Kiara Molina MD Primary Care Provider [phone] Encounter Details Date Type Department Care Team (Late st Contact Info) Description 03/14/2025 Orders Only [facility] Primary Care Clinic [address] [facility] [place] [address] Provider, MD Lucrecia [facility] [place] [address] Social History Tobacco Use Types Packs/Day Years [...] high school, GED, job training, learning the Greek language, technical skills, or developing parenting skills)? [...] housing situation today? I have carlos enrique ubitrago 08/05/2023 How many times have you move [...] Description 08/08/2025 8:00 AM EDT Office Visit [facility] Primary Care Clinic [address] [facility] [address] [place] [address] Kiara Molina MD [address] [facility] [place] [address] [email or web address] documented as of this encounter Procedures Procedure Name Priority Date/Time Associated Diagnosis Comments OUTSIDE IMAGING Routine 03/11/2025 10:34 AM EST documented in this encounter Results * Outside Imaging Report Only (03/11/2025 10:34 AM EST) Historical Provider IMG XR CHEST Final Res ult documented in this encounter Visit Diagnoses Not on filedocumented in this encounter Additional Health Concerns Assessment Noted Time PHQ-9 Depression Total Score: 6 01/26/20 24 1:53 PM EDT PHQ-2 Depression Total Score: 0 01/26/20 24 1:53 PM EDT documented as of this encounter Care Teams Market Specialist Relationship Specialty Start Date End Date Kiara Molina MD [address] [facility] [address] [place] [address] PCP - General Family Medicine 06/11/24 Gladis Pinedo NP Historical LMR Provider 02/05/17 Dennis Kam MD [address] [place] [address] Gastroenterology 05/24/22 Bia Barry MD, MPH [address] [place] [address] [email or web address] Insurance Assigned Provider 01/25/24 documented as of this encounter Additional Source Comments The information contained in this document represents components of the legal health record. It is not the complete legal health record.[facility]
--- OUTSIDE RECORDS SUMMARY | 2025-04-16 11:55 | XMS_ITS | Clinical Summary ---
Author Organization [email or web address] [place] Address [address] [place] [address] Care Team Providers Care Powderman Name Role Phone Nancy Silverman GUILLERMO Primary Care Provider Allergies No known active allergies Medications albuterol [...] on file Sexual Orientation Not on file Last Filed Vital Signs Vital Sign Reading [...] Screening 1965 Colorectal Cancer Screening: Colonoscopy 1965 Drug Screen 1965 Non-Opioid Controlled Substance Agreement 1965 Hepatitis A Vaccines (1 of 2 - Risk 2-dose series) 07/30/1983 Cervical Cancer Screening: Pap Smear 1985 RSV Immunization Adult Patients (1 - Risk 50-74 years 1-dose series) 2014 HIV Screening 01/23/2022 Social Influencers of Health Screening 01/23/2022 Zoster Vaccines (2 of 2) 10/07/2023 08/12/2023 Lung Cancer Screening (Low Dose CT) 12/10/2023 12/09/2022 Depression Screening 04/21/2024 COVID-19 Vaccine ( season) 2024 01/22/2023, 01/23/2022, 01/14/2022, Additional history [...] Interpretation Blood Venous blood specimen / Unknown us Historical Provider LAB BLOOD ORDERABLES Sonia l Result from Last 3 Months or Most Recently Relevant to Health Maintenance Insurance [facility] Advance Directives Documents on File Type Date Recorded Patient Dietary Services Director Expl anation Health Care Decision (hx) 02/24/2022 AD PACK DIRECTIVE Health Care Decision (hx) 02/24/2022 AD PACK DIRECTIVE Care Teams Powderman Relationship Specialty Start Date End Date Nancy Silverman FNP PCP - General Family Medicine 04/23/24
--- OUTSIDE RECORDS SUMMARY | 2025-04-16 11:55 | XMS_ITS | Clinical Summary ---
Author Organization [facility] Address [address] [place] [address] Phone Care Team Providers Care Assembler Cards And Announcements Name Role Phone Ilana Pinedo NP Unavailable [phone] Dennis Kam MD Unavailable [phone] Bia Barry MD, MPH Unavailable +- [phone] Kiara Molina MD Primary Care Provider [phone] Allergies No known active allergies Medications cholecalciferol (VITAMIN D3) 2,000 unit tablet Take 1 tablet (2,000 Units total) by mouth daily. 30 tablet 11 09/22/2023 Active escitalopram oxalate (LEXAPRO) 20 MG tablet Take 1 tablet (20 mg total) by mouth daily. 90 tablet 1 10/15/2024 Active loratadine (CLARITIN) 10 mg tabletIndication s:Allergic rhinitis Take 1 tablet (10 mg total) by mouth daily. 30 tablet 11 10/15/2024 Active buPROPion (WELLBUTRIN XL) 150 MG ER 24 hr tabletIndication s:Anxiety disorder,Major depressive disorder Take 1 tablet (150 mg total) by mouth daily. 90 tablet 3 10/15/2024 Active albuterol 90 mcg/actuation inhalerIndicatio ns:Mild persistent asthma without complication,Chr onic obstructive pulmonary disease Inhale 2 puffs into the lungs every 6 (six) hours as needed for wheezing. 8.5 g 1 11/09/2024 Active traZODone (DESYREL) 50 MG tablet Take 2 tablets (100 mg total) by mouth nightly at bedtime. 180 tablet 1 11/09/2024 Active butalbital-aceta minophen-caffein e (FIORICET, ESGIC) 50-325-40 mg per tablet 1 tab twice a week PRN 6 tablet 03/07/2025 Active LORazepam (ATIVAN) 0.5 MG tabletIndication s:Anxiety disorder Take 1 tablet (0.5 mg total) by mouth daily as needed for anxiety. 10 tablet 03/07/2025 Active Active Problems Problem Noted Date Diagnosed [...] borderline tumor 2021, Surgery by Dr Bernstein, [facility] Post-menopausal 11/22/2020 Hypertriglyceridemia 01/28/2020 Tubular adenoma of [...] sleep and recommended application for phone, Insomnia Burglar Alarm Installer. She will contact the office should insomnia [...] Raynaud's disease 06/10/2017 09/09/2018 Headache 06/10/2017 09/09/2018 Encounters Date Type Department Care Team Description 03/14/2025 Orders Only [facility] Primary Care [facility] [address] [place] [address] Provider, MD Lucrecia from Last 3 Months Immunizations Immunization Administration Dates Next Due COVID-19 (Pre-10/23) Moderna Vaccine, Bivalent 6mo+ 01/23/2022 COVID-19 (Pre-02/10) Moderna Vaccine, mRNA, PF 01/14/2022,2020,07/01/2020 INFLUENZA, SPLIT [...] high school, GED, job training, learning the Tongan language, technical skills, or developing parenting skills)? [...] enough money to get more. Never True 04/16/202 4 Residential Stability Answer Date Recor ded What [...] Description 08/08/2025 8:00 AM EDT Office Visit [facility] [address] [facility] [address] [place] [address] Kiara Molina MD 15 [facility] [address] [place] [address] [email or web address] Health Maintenance Due Date Last Done Comments [...] CANCER SCREENING 04/30/2027 LIPID PANEL 12/20/2027 12/19/2022, 08/3 04/2022, 12/19/2021, Additional history exists Adult Td,Tdap Booster [...] OUTSIDE IMAGING Routine 03/11/2025 10:34 AM EST BI MAMMOGRAM SCREENING (BILATERAL) Routine 08/12/2023 3:24 PM EDT Screening mammogram for breast cancer LIPID PANEL Routine 12/19/2022 3:45 PM EDT Hypertriglyceridemi a ENDOSCOPY, COLON 04/30/2022 11:1 3 AM EST HEPATITIS C ANTIBODY, QUALITATIVE Routine 12/19/2021 11:00 AM EDT LFT elevation from Last 3 Months or Most Recently Relevant to Health Maintenance Results * Outside Imaging Report Only (03/11/2025 10:34 AM EST) us Historical Provider MD ANAYA XR CHEST Final Res ult * (ABNORMAL) Lipid panel (12/19/2022 3:45 PM EDT) HDL 64 mg/dL [facility] Comment: Interpretation <40 mg/dL: Low HDL cholesterol (major risk factor for CHD) Greater than or equal to 60 mg/dL: High HDL cholesterol ( negative risk factor for CHD) HDL - cholesterol is affected by a number of factors, e.g. smoking, excerise, hormones, sex and age. CHOLESTEROL 236 0 - 240 mg/dL [facility] TRIGLYCERIDES 144 30 - 160 mg/dL [facility] LDL 143(H) 50 - 129 mg/dL [facility] Comment: LDL levels in terms of risk for coronary heart disease: <100 mg/dL: Optimal 100-129 mg/dL: Near or above optimal 130-159 mg/dL: Borderline high 160-189 mg/dL: High >190 mg/dL: Very High CARDIAC RISK RATIO 3.7 3.3 - 4.4 C [facility] Blood 12/19/2022 3:45 PM EDT 12/19/2022 3:49 PM EDT us Ilana Pinedo NP LAB BLOOD BKR ORDERABLES Final Result [facility] [address] [place] [address] * ENDOSCOPY, COLON (04/30/2022 11:13 AM EST) Narrative Transcriptions Dennis Kam MD - 04/30/2022 11:13 AM EST [facility] Patient Name: Taty Lau Attending MD:: DENNIS KAM MD Procedure Date: 04/30/2022 11:13 AM Date of : 1965 Age: 56 Admit Type: Outpatient Gender: Female Room: [place] [address] Referring MD: ILANA PINEDO Exam Type: Colonoscopy [...] monitored continuously. The Olympus adult variable colonoscope [id number] #3 was introduced through the anus and [...] 11:13 AM Procedure Code(s): --- Professional --- 84547, Colonoscopy, flexible; with removal of tumor(s), polyp(s), or other lesion(s) by snare technique --- Technical --- 78480, Colonoscopy, flexible; with removal of tumor(s), polyp(s), or other lesion(s) by snare technique CPT copyright 2020 [employer]. All rights reserved. The codes documented in this report are preliminary and upon loading machine adjuster reviewmay be revised to meet current compliance requirements. Procedure Date: 04/30/2022 11:13:[address] [place] [address] [id number] Ilana Pinedo NP GI PROCEDURE ORDERABLES Final R esult * Hepatitis C antibody, qualitative (12/19/2021 11:00 AM EDT) HCV NON-REACTIV E NON-REACTI VE [facility] Blood 12/19/2021 11:0 0 AM EDT 12/19/2021 11:04 AM EDT Ilana Pinedo NP LAB BLOOD BKR ORDERABLES Final Result [address] [address] * Mammogram Screening (Bilateral) (11/09/2019 12:11 PM EDT) Anatomical Region Laterality Modality Breast Left, Breast Right, Breast Bilateral Bila teral Breast Screening Ilana Pinedo BILLING CUSTOMER SERVICE REPRESENTATIVE IMG MG EXAMS Final Result from Last 3 Months or Most Recently Relevant to Health Maintenance Insurance [address] [place] [address] [facility] PPO EPO [address] [place] [facility] PPO EPO [address] [place] [facility] PPO EPO [address] [place] [address] [facility] PPO EPO [address] [place] [facility] PPO EPO [address] [place] [facility] PPO EPO [address] [place] [facility] PPO EPO [address] [place], [place] [facility] PPO EPO [address] [place], [place] [facility] PPO EPO Care Teams Assembler Cards And Announcements Relationship Specialty Start Date End Date Kiara Molina MD [address] [place] [address] [email or web address] PCP - General Family Medicine 06/11/24 Ilana Pinedo NP [email or web address] Historical LMR Provider 02/05/17 Dennis Kam MD [address] [place] [address] [email or web address] Gastroenterology 05/24/22 Bia Barry MD, MPH [address] [place] [address] [email or web address] Insurance Assigned Provider 01/25/24 Additional Source Comments The information contained in this document represents components of the legal health record. It is not the complete legal health record.[facility]
--- OUTSIDE RECORDS SUMMARY | 2025-04-16 11:55 | XMS_ITS | Encounter Summary ---
Author Organization [facility] Address [address] [place] [address] [address] [place] [address] Phone Care Team Providers Care Boiler Erector Name Role Phone Xavi Nusrat Lima MEDICAL RECORDS CUSTODIAN Unavailable [phone] Gladis Pinedo MEDICAL RECORDS CUSTODIAN Unavailable [phone] Gladis Pinedo MEDICAL RECORDS CUSTODIAN Primary Care Provider [phone] Dennis Kam MD Unavailable [phone] Nancy Silverman MANAGER FAMILY Primary Care Provider [phone] Bia Barry MD, MPH Unavailable + [phone] Kiara Molina MD Primary Care Provider [phone] Encounter Details Date Type Department Care Team (Late st Contact Info) Description 11/22/2020 Procedure Pass [facility], Ct Scan - [address] [address] Social History Tobacco Use Types Packs/Day Years [...] high school, GED, job training, learning the Syrian language, technical skills, or developing parenting skills)? [...] Description 08/08/2025 8:00 AM EDT Office Visit [facility] [address] [facility] [address] [place] [address] Kiara Molina MD 15 [facility] [address] [place] [address] [email or web address] documented as of this encounter Visit Diagnoses Not on filedocumented in this encounter Additional Health Concerns Infection Onset Date Last Indicated Resolved Time COVID-19 04/29/2023 04/29/2023 05/20/2023 1:22 AM EST Assessment Noted Time PHQ-2 Depression Total Score: 0 11/23/19 21 2:57 PM EDT documented as of this encounter Care Teams Boiler Erector Relationship Specialty Start Date End Date Gladis Pinedo, MEDICAL RECORDS CUSTODIAN [address] [place] [address] PCP - General Family Medicine 01/08/18 05/14/23 Nancy Silverman, GUILLERMO [address] [place] [address] [email or web address] PCP - General Nurse Practitioner 05/15/23 06/10/24 Kiara Molina MD [address] [place] [address] [email or web address] PCP - General Family Medicine 06/11/24 Nusrat Hurley NP [address] [place] [address] Historical LMR Provider 02/05/17 2 Gladis Pinedo, MEDICAL RECORDS CUSTODIAN [address] [place] [address] Historical LMR Provider 02/05/17 Dennis Kam MD [address] [place] [address] Gastroenterology 05/24/22 Bia Barry MD, MPH [address] [place] [address] Insurance Assigned Provider 01/25/24 documented as of this encounter Additional Source Comments The information contained in this document represents components of the legal health record. It is not the complete legal health record.[facility]
--- OUTSIDE RECORDS SUMMARY | 2025-04-16 11:55 | XMS_ITS | Encounter Summary ---
Author Organization [facility] Address [address] [facility] [address] [place] [address] Phone Care Team Providers Care Banquet Prep Cook Name Role Phone Xavi Nusrat Lima NUCLEAR POWER REACTOR OPERATOR Unavailable Gladis Pinedo NUCLEAR POWER REACTOR OPERATOR Unavailable [phone] Gladis Pinedo NUCLEAR POWER REACTOR OPERATOR Primary Care Provider [phone] Dennis Kam MD Unavailable [phone] Nancy Silverman MAORI PHYSIOTHERAPIST Primary Care Provider [phone] Bia Barry MD, MPH Unavailable + [phone] Kiara Molina MD Primary Care Provider [phone] Encounter Details Date Type Department Care Team (Latest Contact Info) Description 12/25/2018 Ancillary Orders [facility] Cardiology Clinic [address] [place] [address] Spencer Nina DO [address] [facility] [address] [place] [address] [email or web address] Atheroscler of [place] artery of both legs with intermit claudication [...] Description 08/08/2025 8:00 AM EDT Office Visit [facility] Primary Care Clinic [address] [facility] [address] [place] [address] Kiara Molina MD [address] [facility] 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 [...] documented as of this encounter Care Teams Banquet Prep Cook Relationship Specialty Start Date End Date Gladis Pinedo, NUCLEAR POWER REACTOR OPERATOR [address] [place] [address] PCP - General Family Medicine 01/08/18 05/14/23 Nancy Silverman FNP [address] [place] [address] PCP - General Nurse Practitioner 05/15/23 06/10/24 Kiara Molina MD [address] [place] [address] [email or web address] PCP - General Family Medicine 06/11/24 Nusrat Hurley NP [address] [place] [address] Historical LMR Provider 02/05/17 2 Gladis Pinedo NP [address] [place] [address] Historical LMR Provider 02/05/17 Dennis Kam MD [address] [place] [address] Gastroenterology 05/24/22 Bia Barry MD, MPH [address] [place] [address] Insurance Assigned Provider 01/25/24 documented as of this encounter Additional Source Comments The information contained in this document represents components of the legal health record. It is not the complete legal health record.[facility]
--- OUTSIDE RECORDS SUMMARY | 2025-04-16 11:55 | XMS_ITS | Encounter Summary ---
Author Organization [facility] Address [address] [place] [address] Phone Care Team Providers Care Triage Register Nurse Name Role Phone Gladis Pinedo PASTER HAT LINING Unavailable [phone] Gladis Pinedo PASTER HAT LINING Primary Care Provider [phone] Dennis Kam MD Unavailable [phone] Nancy Silverman TUFTER HAND Primary Care Provider [phone] Bia Barry MD, MPH Unavailable + [phone] Kiara Molina MD Primary Care Provider [phone] Encounter Details Date Type Department Care Team (Late st Contact Info) Description 11/28/2021 Procedure Pass [facility], Ct Scan - [address] [address] Social History Tobacco Use Types Packs/Day Years [...] high school, GED, job training, learning the Venezuelan language, technical skills, or developing parenting skills)? [...] Description 08/08/2025 8:00 AM EDT Office Visit [facility] Primary Care Clinic [address] [facility] [address] [place] [address] Kiara Molina MD 15 [facility] [address] [place] [address] [email or web address] documented as of this encounter Visit Diagnoses Not on filedocumented in this encounter Additional Health Concerns Infection Onset Date Last Indicated Resolved Time COVID-19 04/29/2023 04/29/2023 05/20/2023 1:22 AM EST Assessment Noted Time PHQ-2 Depression Total Score: 0 11/26/19 22 9:10 AM EDT documented as of this encounter Care Teams Triage Register Nurse Relationship Specialty Start Date End Date Gladis Pinedo PASTER HAT LINING PCP - General Family Medicine 01/08/18 05/14/23 Nancy Silverman FNP [address] [place] [address] PCP - General Nurse Practitioner 05/15/23 06/10/24 Kiara Molina MD [address] [place] [address] PCP - General Family Medicine 06/11/24 Gladis Pinedo PASTER HAT LINING Historical LMR Provider 02/05/17 Dennis Kam MD [address] [place] [address] Gastroenterology 05/24/22 Bia Barry MD, MPH [address] [place] [address] Insurance Assigned Provider 01/25/24 documented as of this encounter Additional Source Comments The information contained in this document represents components of the legal health record. It is not the complete legal health record.[facility]
--- OUTSIDE RECORDS SUMMARY | 2025-04-16 11:55 | XMS_ITS | Encounter Summary ---
Author Organization [facility] Address [address] [place] [address] Phone Care Team Providers Care Mat Tester Name Role Phone Gladis Pinedo MARINE GEOLOGIST Unavailable [phone] Gladis Pinedo MARINE GEOLOGIST Primary Care Provider [phone] Dennis Kam MD Unavailable [phone] Nancy Silverman CARCASS TRIMMER Primary Care Provider [phone] Bia Barry MD, MPH Unavailable + [phone] Kiara Molina MD Primary Care Provider [phone] Encounter Details Date Type Department Care Team (Late st Contact Info) Description 12/27/2021 Procedure Pass [facility], Ct Scan - [address] [address] Social History Tobacco Use Types Packs/Day Years [...] high school, GED, job training, learning the Dominican language, technical skills, or developing parenting skills)? [...] Description 08/08/2025 8:00 AM EDT Office Visit [facility] Primary Care Clinic [address] [facility] [address] [place] [address] Kiara Molina MD [address] [facility] [address] [place] [address] [email or web address] documented as of this encounter Visit Diagnoses Not on filedocumented in this encounter Additional Health Concerns Infection Onset Date Last Indicated Resolved Time COVID-19 04/29/2023 04/29/2023 05/20/2023 1:22 AM EST Assessment Noted Time PHQ-2 Depression Total Score: 0 11/26/19 22 9:10 AM EDT documented as of this encounter Care Teams Mat Tester Relationship Specialty Start Date End Date Gladis Pinedo MARINE GEOLOGIST PCP - General Family Medicine 01/08/18 05/14/23 Nancy Silverman FNP [address] [place] [address] PCP - General Nurse Practitioner 05/15/23 06/10/24 Kiara Molina MD [address] [place] [address] PCP - General Family Medicine 06/11/24 Gladis Pinedo MARINE GEOLOGIST Historical LMR Provider 02/05/17 Dennis Kam MD [address] [place] [address] Gastroenterology 05/24/22 Bia Barry MD, MPH [address] [place] [address] [email or web address] Insurance Assigned Provider 01/25/24 documented as of this encounter Additional Source Comments The information contained in this document represents components of the legal health record. It is not the complete legal health record.[facility]
[2025-04-16] MEDS: iohexoL 350 MG/ML 100 ML INFUS..BTL IV (12:45)
[2025-04-16] MEDS: diazePAM 10 MG/2 ML CARTRIDGE 2.5 MG IVPUSH (14:22)
[2025-04-16 14:54] VITALS: BP 138/70; PULSE 79; RESP 16; TEMP 36.5; O2SAT 98
[2025-04-16 14:56] LABS: Appearance Urine Clear; Glucose Urine UA Negative (Negative); PH 6.5 (5.0-9.0); Specific Gravity - Urine >= 1.030 (1.005-1.025)
[2025-04-16 16:10] VITALS: BP 138/70; PULSE 79; RESP 16; TEMP 36.5; O2SAT 98
== END 2025-04-16 16:10 | disposition home or self-care (01) ==
PROVIDERS: Physician Assistant Medical; Emergency Provider Emergency Medicine; PCP Registered Nurse
DX: B34.9 Viral infection, unspecified (principal); R11.2 Nausea with vomiting, unspecified; Z03.818 Encounter for observation for suspected exposure to other biological agents ruled out; Z79.899 Other long term (current) drug therapy
CPT/HCPCS: 74177; 80048; 80076; 81003; 83690; 83735; 85025; 87637; 93005; 96361; 96365; 96375; 99285; J1200; J2405; J2765; J3360; J3475; Q9967

== ENCOUNTER → 2025-04-16 11:51 | Outpatient (BNV) | payer BC, SELFPAY | PROVIDERS: PCP Registered Nurse; Visit Provider Radiology Diagnostic Radiology | DX: K76.0 Fatty (change of) liver, not elsewhere classified (principal); R91.1 Solitary pulmonary nodule | CPT/HCPCS: 74177 ==

== ENCOUNTER → 2025-04-16 11:52 | Outpatient (BNV) | payer BC, SELFPAY | PROVIDERS: Emergency Provider Emergency Medicine; PCP Registered Nurse; Visit Provider Internal Medicine Cardiovascular Disease | DX: R94.31 Abnormal electrocardiogram [ECG] [EKG] (principal); Z13.6 Encounter for screening for cardiovascular disorders | CPT/HCPCS: 93010 ==

== ENCOUNTER 2025-04-18 18:52 | Emergency (ER) | payer BC, SELFPAY ==
[2025-04-18 19:00] VITALS: BP 165/94; PULSE 99; O2SAT 100
[2025-04-18 19:37] VITALS: BP 152/98; PULSE 103; RESP 20; TEMP 36.5; O2SAT 100; BMI 25.7
--- NOTE | 2025-04-18 19:38 | ED.GENADULT ---
HPI - General Adult General Chief complaint: Nausea/Vomiting/Diarrhea Stated complaint: SOB Time Seen by Provider: 04/18/25 23:39 Related Data Home Medications ?Medication ?Instructions ?Recorded ?Confirmed aripiprazole 5 mg tablet (Abilify) 5 mg PO DAILY 02/15/20 bupropion HCl 100 mg tablet,12 hr 100 mg PO DAILY 02/15/20 sustained-release (Wellbutrin SR) sertraline 100 mg tablet 100 mg PO DAILY 02/15/20 sertraline 50 mg tablet 50 mg PO DAILY 02/15/20 trazodone 100 mg tablet 100 mg PO DAILY 02/15/20 albuterol sulfate 90 mcg/actuation inhalation 07/17/23 aerosol inhaler aripiprazole 2 mg tablet 2 mg PO DAILY 07/17/23 bupropion HCl 150 mg 24 hr tablet, 150 mg PO QAM 07/17/23 extended release dusjuyokyw-ckgqqwxorhkum-vqmbutgz tab PO 07/17/23 50 mg-325 mg-40 mg tablet escitalopram oxalate 20 mg tablet 20 mg PO DAILY 07/17/23 gabapentin 300 mg capsule mg PO 07/17/23 quetiapine 50 mg tablet mg PO 07/17/23 Previous Rx's ?Medication ?Instructions ?Recorded erythromycin 5 mg/gram (0.5 %) eye 0.5 inch ophthalmic (eye) TID #3.5 04/11/22 ointment grams sulfacetamide sodium 10 % eye drops 2 drp ophthalmic (eye) Q4H 10 days 04/11/22 #15 mL acetaminophen 500 mg capsule 1,000 mg (2 x 500 mg) PO Q6H PRN 07/17/23 fever #30 caps penicillin V potassium 500 mg 500 mg PO TID 10 days #30 tabs 07/17/23 tablet cyclobenzaprine 10 mg tablet 10 mg PO TID PRN muscle pain #14 07/21/23 tabs ibuprofen 600 mg tablet 600 mg PO Q6H PRN pain #14 tabs 07/21/23 Allergies Allergy/AdvReac Type Severity Reaction Status Date / Time No Known Allergies Allergy Verified 04/18/25 19:39 [facility] Social History Social History Patient Tobacco Use Status: Never used Tobacco Advance Directives: No Advance Directives Information Provided: Yes Physical Exam ED Vital Signs: Vital Signs - 24 hr 04/18/25 19:37 04/19/25 00:35 Temperature 97.7 F 98.0 F Pulse Rate 103 H 89 Respiratory Rate 20 18 Blood Pressure 152/98 H 123/75 Pulse Oximetry 100 100 Oxygen Delivery Method Room Air Room Air BMI result Body Mass Index 25.7 Course Course Course Narrative: Rapid medical examination performed in triage by Cassie Horton PA-C: Patient is a 59 year old female presenting to the emergency department with nausea and vomiting. Detailed physical exam and review of systems are deferred to the sweeper cleaner industrial. Labs ordered. Patient placed back in the waiting room pending room availability and results. Patient evaluated and dispositioned by Dr. Carter, please refer to her note. Medications Administered Discontinued Medications Generic Name Dose Route Start Last Admin Trade Name Freq PRN Reason Stop Dose Admin Famotidine 20 mg 04/19/25 00:12 04/19/25 00:44 Famotidine/Pf 20 Mg/2 Ml Vial IVPUSH 04/19/25 00:13 20 mg ONCE ONE Administration Lactated Ringer's 2,000 mls @ 999 mls/hr 04/19/25 00:15 04/19/25 06:48 Lr IV 04/19/25 02:15 Infused .Q2H1M RON Infusion Medical Decision Making Lab Data 04/18/25 20:20 04/18/25 20:20 Labs: Lab Results 04/18/25 Range/Units 20:20 WBC 15.4 H (4.8-10.8) X10*3/uL RBC 5.48 (4.20-5.50) X10*6/uL Hgb 15.5 (12.0-16.0) g/dl Hct 45.1 (37.0-47.0) % MCV 82.3 (80.0-98.0) fL MCH 28.3 (27.0-33.0) pg MCHC 34.4 (31.0-35.0) g/dl RDW 12.2 (11.0-16.0) % Plt Count 418 H (160-400) X10*3/uL MPV 8.8 L (9.4-12.3) fL Immature Gran % (Auto) 0.6 H (0.0-0.4) % Neut % (Auto) 89.2 H (45-73) % Lymph % (Auto) 7.3 L (20-40) % Hamlin % (Auto) 2.6 (2-11) % Eos % (Auto) 0.0 (0-4) % Baso % (Auto) 0.3 (0-2) % Lymph # (Auto) 1.1 L (1.2-4.9) X10*3/uL Hamlin # (Auto) 0.4 (0.1-1.2) X10*3/uL Eos # (Auto) 0.0 (0.0-0.4) X10*3/uL Baso # (Auto) 0.1 (0.0-0.2) X10*3/uL Abs Immat Gran (auto) 0.10 H (0.00-0.03) X10*3/uL Absolute Neuts (auto) 13.7 H (2.0-8.3) x10*3/uL Absolute Nucleated RBC 0.000 (0.0-0.012) X10*3/uL Nucleated RBC % (auto) 0.0 (0.0-0.2) /100WBC Sodium 142 (135-145) mmol/L Potassium 3.6 (3.3-5.1) mmol/L Chloride 102 (96-108) mmol/L Carbon Dioxide 22 (22-29) mmol/L Anion Gap 22 H (12-20) BUN 13 (9-16) mg/dL Creatinine 0.69 (0.5-1.4) mg/dL Estim Creat Clear Calc 79.0 Estimated GFR > 60 Random Glucose 143 H (60-115) mg/dL Calcium 9.8 (8.4-10.2) mg/dL Magnesium 2.3 (1.6-2.6) mg/dL Total Bilirubin 1.0 (0.0-1.0) mg/dL AST 21 (5-31) U/L ALT 20 (0-31) U/L Alkaline Phosphatase 101 (39-117) U/L Total Protein 7.7 (6.5-8.0) g/dL Albumin 4.7 (3.5-5.0) g/dL Influenza Type A (PCR) NEGATIVE (Negative) Influenza Type B (PCR) NEGATIVE (Negative) RSV RNA Qual (PCR) NEGATIVE (Negative) SARS-CoV-2 RNA (RT-PCR) NEGATIVE (Negative) Discharge Plan Discharge Clinical Impression: Gastroenteritis Patient Disposition: Home, Self-Care Prescriptions: No Action ibuprofen 600 mg tablet 600 mg PO Q6H PRN (Reason: pain) Qty: 14 0RF cyclobenzaprine 10 mg tablet 10 mg PO TID PRN (Reason: muscle pain) Qty: 14 0RF sertraline 100 mg tablet 100 mg PO DAILY sertraline 50 mg tablet 50 mg PO DAILY bupropion HCl [Wellbutrin SR] 100 mg tablet sustained-release 12 hr 100 mg PO DAILY aripiprazole [Abilify] 5 mg tablet 5 mg PO DAILY trazodone 100 mg tablet 100 mg PO DAILY sulfacetamide sodium 10 % drops 2 drp ophthalmic (eye) Q4H 10 Days Qty: 15 0RF erythromycin 5 mg/gram (0.5 %) ointment 0.5 inch ophthalmic (eye) TID Qty: 3.5 0RF quetiapine 50 mg tablet PO bupropion HCl 150 mg tablet extended release 24 hr 150 mg PO QAM albuterol sulfate 90 mcg/actuation HFA aerosol inhaler inhalation pmsqlrlwhg-qneugnflbnxjd-stat 50-325-40 mg tablet PO escitalopram oxalate 20 mg tablet 20 mg PO DAILY aripiprazole 2 mg tablet 2 mg PO DAILY gabapentin 300 mg capsule PO penicillin V potassium 500 mg tablet 500 mg PO TID 10 Days Qty: 30 0RF acetaminophen 500 mg capsule 1,000 mg PO Q6H PRN (Reason: fever) Qty: 30 0RF Discharge Date/Time: 04/19/25 06:49 Print Language: Korean
[2025-04-18 20:27] LABS: Hematocrit 45.1 % (37.0-47.0); Hemoglobin 15.5 g/dl (12.0-16.0); Imm Gran Abs Auto 0.10 X10*3/uL (0.00-0.03); Imm Gran Pct Auto 0.6 % (0.0-0.4); Lymphocytes Absolute Auto 1.1 X10*3/uL (1.2-4.9); MANUAL DIFF FLAG NO; Mean Corpuscular HGB Conc 34.4 g/dl (31.0-35.0); Mean Corpuscular Hemoglobin 28.3 pg (27.0-33.0); Mean Corpuscular Volume 82.3 fL (80.0-98.0); NRBC Abs Auto 0.000 X10*3/uL (0.0-0.012); NRBC Pct Auto 0.0 /100WBC (0.0-0.2); Platelet Count 418 X10*3/uL (160-400); Red Blood Count 5.48 X10*6/uL (4.20-5.50); White Blood Count 15.4 X10*3/uL (4.8-10.8)
[2025-04-18 20:50] LABS: Alanine Aminotransferase 20 U/L (0-31); Albumin Level 4.7 g/dL (3.5-5.0); Alkaline Phosphatase 101 U/L (39-117); Anion Gap 22 (12-20); Aspartate Amino Transferase 21 U/L (5-31); Blood Urea Nitrogen 13 mg/dL (9-16); Calcium 9.8 mg/dL (8.4-10.2); Carbon Dioxide 22 mmol/L (22-29); Chloride 102 mmol/L (96-108); Creatinine Clr Calc Pharmacy 79.0; Estimated Glomerular Filt Rate > 60; Magnesium 2.3 mg/dL (1.6-2.6); Potassium 3.6 mmol/L (3.3-5.1); Sodium 142 mmol/L (135-145); Total Protein 7.7 g/dL (6.5-8.0)
[2025-04-18 21:24] LABS: Resp Syncy Virus RNA Qual PCR NEGATIVE (Negative); SARS COV2 PCR INHOUSE NEGATIVE (Negative)
--- NOTE | 2025-04-19 00:14 | ED.NAVMDI ---
HPI - Nausea/Vomiting/Diarrhea General Chief complaint: Nausea/Vomiting/Diarrhea Stated complaint: SOB Time Seen by Provider: 04/18/25 23:39 Source: patient Mode of arrival: ambulatory Limitations: no limitations History of Present Illness ED Provider: Dr. Moira Carter HPI Narrative: Patient comes to the emergency room complaining of nausea vomiting for couple of days. Patient was seen here 2 days ago with the same symptoms. Patient states that diarrhea stopped, no longer having significant abdominal pain, complaining of nausea and vomiting. Patient states that she was told that her QTC was too long and they sent home with a out any nausea medications. Patient denies fever chills Related Data Home Medications ?Medication ?Instructions ?Recorded ?Confirmed aripiprazole 5 mg tablet (Abilify) 5 mg PO DAILY 02/15/20 bupropion HCl 100 mg tablet,12 hr 100 mg PO DAILY 02/15/20 sustained-release (Wellbutrin SR) sertraline 100 mg tablet 100 mg PO DAILY 02/15/20 sertraline 50 mg tablet 50 mg PO DAILY 02/15/20 trazodone 100 mg tablet 100 mg PO DAILY 02/15/20 albuterol sulfate 90 mcg/actuation inhalation 07/17/23 aerosol inhaler aripiprazole 2 mg tablet 2 mg PO DAILY 07/17/23 bupropion HCl 150 mg 24 hr tablet, 150 mg PO QAM 07/17/23 extended release eongdyqbiy-jitavgafrtpav-uxeavnwj tab PO 07/17/23 50 mg-325 mg-40 mg tablet escitalopram oxalate 20 mg tablet 20 mg PO DAILY 07/17/23 gabapentin 300 mg capsule mg PO 07/17/23 quetiapine 50 mg tablet mg PO 07/17/23 Previous Rx's ?Medication ?Instructions ?Recorded erythromycin 5 mg/gram (0.5 %) eye 0.5 inch ophthalmic (eye) TID #3.5 04/11/22 ointment grams sulfacetamide sodium 10 % eye drops 2 drp ophthalmic (eye) Q4H 10 days 04/11/22 #15 mL acetaminophen 500 mg capsule 1,000 mg (2 x 500 mg) PO Q6H PRN 07/17/23 fever #30 caps penicillin V potassium 500 mg 500 mg PO TID 10 days #30 tabs 07/17/23 tablet cyclobenzaprine 10 mg tablet 10 mg PO TID PRN muscle pain #14 07/21/23 tabs ibuprofen 600 mg tablet 600 mg PO Q6H PRN pain #14 tabs 07/21/23 Allergies Allergy/AdvReac Type Severity Reaction Status Date / Time No Known Allergies Allergy Verified 04/18/25 19:39 Review of Systems Review of Systems: Constitutional : No Weight loss, No Fever, No Chills, No Night Sweats, No Fatigue, No Malaise ENT/Mouth : No Hearing loss, No Ear Pain, No Nasal Congestion, No Sinus Pain, No Hoarseness, No sore throat, No Rhinorrhea, No Swallowing Difficulty Eyes: No Eye Pain, No Swelling, No Redness, No Foreign Body, No Discharge, No Vision Changes Cardiovascular : No Chest Pain, No SOB, No Dyspnea on Exertion, No Orthopnea, No Edema, No Palpitations Respiratory : No Cough, No Sputum, No Wheezing, No Smoke Exposure, No Dyspnea Gastrointestinal : complaining of nausea and vomiting, No Diarrhea, No Constipation, No abdominal Pain, No Hematochezia, No Melena Genitourinary : no irregular bleeding, No Dysuria, No Urinary Frequency, No Hematuria, No Urinary Incontinence, No Urgency, No Flank Pain, No Urinary Flow Changes, No Hesitancy Musculoskeletal : No joint pain, No Myalgias, No Joint Swelling Skin : No Skin Lesions, No rash Neuro : No Weakness, No Numbness, No Paresthesias, No Loss of Consciousness, No Dizziness, No Headache Psych : No Anxiety/Panic, No Depression, No SI/HI/AH/VH, No Social Issues, Heme/Lymph: No Bruising, No Bleeding,No Lymphadenopathy Endocrine : No Polyuria, No Polydipsia, No Temperature Intolerance [facility] Social History Social History Patient Tobacco Use Status: Never used Tobacco Physical Exam Exam: Exam: Appearance: Alert. Oriented X3. No acute distress. Eyes: Pupils equal, round and reactive to light. ENT: Pharynx normal. dry oral mucosa Neck: Normal inspection. Neck supple. No lymph nodes noted. No crepitus CVS: Normal heart rate and rhythm. Pulses normal. Normal S1 and S2 Respiratory: No respiratory distress. Breath sounds normal. No Wheezing. No rales Abdomen: Soft and nontender. No rigidity. No distention. Skin: Skin warm and dry. Normal skin color. Normal skin turgor. Extremities: No lower extremity edema. No Lacerations. No Rash Neuro: Oriented X 3. No motor deficit. No sensory deficit. Moving all extremities. No slurred speech. CN 2 through 12 grossly intact Psych: calm, cooperative, slightly anxious Vital Signs: Vital Signs: Last Vital Signs Temp 97.7 F 04/18/25 19:37 Pulse 103 H 04/18/25 19:37 Resp 20 04/18/25 19:37 BP 152/98 H 04/18/25 19:37 Pulse Ox 100 04/18/25 19:37 O2 Del Method Room Air 04/18/25 19:37 BMI result Body Mass Index 25.7 Course Course Course Narrative: patient receiving IV fluids, Compazine labs pending Medical Decision Making Medical Decision Making [facility] Narrative: my interpretation of labs: Patient's white blood cell count is 15.4, likely reactive leukocytosis. Two days ago the white blood cell was normal. Chemistry does not show any acute abnormality. LFTs within normal limits. Serology negative for influenza RSV and COVID patient had a CT scan of the abdomen / pelvis done 2 days ago showing no acute abdominal disease, chronic changes such as left low liver nodules, gallbladder with nodules without any acute changes. Patient denies any abdominal pain. Urinalysis last visit was negative for UTI Lab Data 04/18/25 20:20 04/18/25 20:20 Labs: Lab Results 04/18/25 Range/Units 20:20 WBC 15.4 H (4.8-10.8) X10*3/uL RBC 5.48 (4.20-5.50) X10*6/uL Hgb 15.5 (12.0-16.0) g/dl Hct 45.1 (37.0-47.0) % MCV 82.3 (80.0-98.0) fL MCH 28.3 (27.0-33.0) pg MCHC 34.4 (31.0-35.0) g/dl RDW 12.2 (11.0-16.0) % Plt Count 418 H (160-400) X10*3/uL MPV 8.8 L (9.4-12.3) fL Immature Gran % (Auto) 0.6 H (0.0-0.4) % Neut % (Auto) 89.2 H (45-73) % Lymph % (Auto) 7.3 L (20-40) % Hooker % (Auto) 2.6 (2-11) % Eos % (Auto) 0.0 (0-4) % Baso % (Auto) 0.3 (0-2) % Lymph # (Auto) 1.1 L (1.2-4.9) X10*3/uL [place]er # (Auto) 0.4 (0.1-1.2) X10*3/uL Eos # (Auto) 0.0 (0.0-0.4) X10*3/uL Baso # (Auto) 0.1 (0.0-0.2) X10*3/uL Abs Immat Gran (auto) 0.10 H (0.00-0.03) X10*3/uL Absolute Neuts (auto) 13.7 H (2.0-8.3) x10*3/uL Absolute Nucleated RBC 0.000 (0.0-0.012) X10*3/uL Nucleated RBC % (auto) 0.0 (0.0-0.2) /100WBC Sodium 142 (135-145) mmol/L Potassium 3.6 (3.3-5.1) mmol/L Chloride 102 (96-108) mmol/L Carbon Dioxide 22 (22-29) mmol/L Anion Gap 22 H (12-20) BUN 13 (9-16) mg/dL Creatinine 0.69 (0.5-1.4) mg/dL Estim Creat Clear Calc 79.0 Estimated GFR > 60 Random Glucose 143 H (60-115) mg/dL Calcium 9.8 (8.4-10.2) mg/dL Magnesium 2.3 (1.6-2.6) mg/dL Total Bilirubin 1.0 (0.0-1.0) mg/dL AST 21 (5-31) U/L ALT 20 (0-31) U/L Alkaline Phosphatase 101 (39-117) U/L Total Protein 7.7 (6.5-8.0) g/dL Albumin 4.7 (3.5-5.0) g/dL Influenza Type A (PCR) NEGATIVE (Negative) Influenza Type B (PCR) NEGATIVE (Negative) RSV RNA Qual (PCR) NEGATIVE (Negative) SARS-CoV-2 RNA (RT-PCR) NEGATIVE (Negative) Discharge Plan Discharge Prescriptions: No Action ibuprofen 600 mg tablet 600 mg PO Q6H PRN (Reason: pain) Qty: 14 0RF cyclobenzaprine 10 mg tablet 10 mg PO TID PRN (Reason: muscle pain) Qty: 14 0RF sertraline 100 mg tablet 100 mg PO DAILY sertraline 50 mg tablet 50 mg PO DAILY bupropion HCl [Wellbutrin SR] 100 mg tablet sustained-release 12 hr 100 mg PO DAILY aripiprazole [Abilify] 5 mg tablet 5 mg PO DAILY trazodone 100 mg tablet 100 mg PO DAILY sulfacetamide sodium 10 % drops 2 drp ophthalmic (eye) Q4H 10 Days Qty: 15 0RF erythromycin 5 mg/gram (0.5 %) ointment 0.5 inch ophthalmic (eye) TID Qty: 3.5 0RF quetiapine 50 mg tablet PO bupropion HCl 150 mg tablet extended release 24 hr 150 mg PO QAM albuterol sulfate 90 mcg/actuation HFA aerosol inhaler inhalation ntaxmsrzgh-jfzqeejwnupqi-igiz 50-325-40 mg tablet PO escitalopram oxalate 20 mg tablet 20 mg PO DAILY aripiprazole 2 mg tablet 2 mg PO DAILY gabapentin 300 mg capsule PO penicillin V potassium 500 mg tablet 500 mg PO TID 10 Days Qty: 30 0RF acetaminophen 500 mg capsule 1,000 mg PO Q6H PRN (Reason: fever) Qty: 30 0RF Print Language: Croatian
--- OUTSIDE RECORDS SUMMARY | 2025-04-19 00:30 | XMS_ITS | Encounter Summary ---
Author Organization [facility] Address [address] [place] [address] Phone Care Team Providers Care Hand Cloth Folder Name Role Phone Xavi Nusrat Lima PRODUCTION SUPERVISOR OFF SHIFT Unavailable Gladis Pinedo PRODUCTION SUPERVISOR OFF SHIFT Unavailable [phone] Gladis Pinedo PRODUCTION SUPERVISOR OFF SHIFT Primary Care Provider [phone] Dennis Kam MD Unavailable [phone] Nancy Silverman STABLE HELPER Primary Care Provider [phone] Bia Barry MD, MPH Unavailable [phone] Kiara Molina MD Primary Care Provider [phone] Encounter Details Date Type Department Care Team (Latest Contact Info) Description 12/25/2018 Ancillary Orders [facility]iology [facility] [address] [place] [address] Spencer Nina DO [address] [place] [address] [email or web address] Atheroscler of [place] artery of both legs with intermit claudication [...] Description 08/08/2025 8:00 AM EDT Office Visit [facility] [address] [facility] [address] [place] [address] Kiara Molina MD 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 [...] documented as of this encounter Care Teams Hand Cloth Folder Relationship Specialty Start Date End Date Gladis Pinedo, PRODUCTION SUPERVISOR OFF SHIFT [address] [place] [address] PCP - General Family Medicine 01/08/18 05/14/23 Nancy Silverman FNP [address] [place] [address] PCP - General Nurse Practitioner 05/15/23 06/10/24 Kiara Molina MD [address] [place] [address] [email or web address] PCP - General Family Medicine 06/11/24 Nusrat Hurley NP [address] [place] [address] Historical LMR Provider 02/05/17 2 Gladis Pinedo NP [address] [place] [address] Historical LMR Provider 02/05/17 Dennis Kam MD [address] [place] [address] Gastroenterology 05/24/22 Bia Barry MD, MPH [address] [place] [address] Insurance Assigned Provider 01/25/24 documented as of this encounter Additional Source Comments The information contained in this document represents components of the legal health record. It is not the complete legal health record.[facility]
--- OUTSIDE RECORDS SUMMARY | 2025-04-19 00:30 | XMS_ITS | Encounter Summary ---
Author Organization [facility] Address [address] [place] [address] Phone Care Team Providers Care Cap Coverer Name Role Phone Gladis Pinedo NP Unavailable [phone] Dennis Kam MD Unavailable [phone] Bia Barry MD, MPH Unavailable [phone] Kiara Molina MD Primary Care Provider [phone] Encounter Details Date Type Department Care Team (Late st Contact Info) Description 04/18/2025 Orders Only [facility] [address] [place] [address] Provider, MD [place] [address] Social History Tobacco Use Types [...] high school, GED, job training, learning the [place] Islander language, technical skills, or developing parenting skills)? [...] Description 08/08/2025 8:00 AM EDT Office Visit [facility] [address] [facility] [address] [place] [address] Kiara Molina MD [address] [facility] [place] [address] [email or web address] documented as of this encounter Procedures Procedure Name Priority Date/Time Associated Diagnosis Comments OUTSIDE IMAGING Routine 04/16/2025 10:21 AM EST documented in this encounter Results * Outside Imaging Report Only (04/16/2025 10:21 AM EST) us Historical Provider IMG XR CHEST Final Res ult documented in this encounter Visit Diagnoses Not on filedocumented in this encounter Additional Health Concerns Assessment Noted Time PHQ-9 Depression Total Score: 6 01/26/20 24 1:53 PM EDT PHQ-2 Depression Total Score: 0 01/26/20 24 1:53 PM EDT documented as of this encounter Care Teams Cap Coverer Relationship Specialty Start Date End Date Kiara Molina MD [address] [facility] [address] [place] [address] PCP - General Family Medicine 06/11/24 Gladis Pinedo NP Historical LMR Provider 02/05/17 Dennis Kam MD [address] [place] [address] Gastroenterology 05/24/22 Bia Barry MD, MPH [address] [place] [address] [email or web address] Insurance Assigned Provider 01/25/24 documented as of this encounter Additional Source Comments The information contained in this document represents components of the legal health record. It is not the complete legal health record.[facility]
--- OUTSIDE RECORDS SUMMARY | 2025-04-19 00:30 | XMS_ITS | Encounter Summary ---
Author Organization [facility] Address [address] [place] [address] Phone Care Team Providers Care Poultry Farmworker Name Role Phone Gladis Pinedo WASTE COLLECTION DRIVER Unavailable [phone] Gladis Pinedo WASTE COLLECTION DRIVER Primary Care Provider [phone] Dennis Kam MD Unavailable [phone] Nancy Silverman TIN TIE MACHINE OPERATOR AUTOMATIC Primary Care Provider [phone] Bia Barry MD, MPH Unavailable + [phone] Kiara Molina MD Primary Care Provider [phone] Encounter Details Date Type Department Care Team (Late st Contact Info) Description 12/27/2021 Procedure Pass [facility], Ct Scan - [address] [address] Social History Tobacco Use Types Packs/Day Years [...] Description 08/08/2025 8:00 AM EDT Office Visit [facility] Care Clinic [address] [place] [address] Kiara Molina MD [address] [facility] [address] [place] [address] [email or web address] documented as of this encounter Visit Diagnoses Not on filedocumented in this encounter Additional Health Concerns Infection Onset Date Last Indicated Resolved Time COVID-19 04/29/2023 04/29/2023 05/20/2023 1:22 AM EST Assessment Noted Time PHQ-2 Depression Total Score: 0 11/26/19 22 9:10 AM EDT documented as of this encounter Care Teams Poultry Farmworker Relationship Specialty Start Date End Date Gladis Pinedo WASTE COLLECTION DRIVER PCP - General Family Medicine 01/08/18 05/14/23 Nancy Silverman FNP [address] [place] [address] PCP - General Nurse Practitioner 05/15/23 06/10/24 Kiara Molina MD [address] [place] [address] PCP - General Family Medicine 06/11/24 Gladis Pinedo WASTE COLLECTION DRIVER Historical LMR Provider 02/05/17 Dennis Kam MD [address] [place] [address] Gastroenterology 05/24/22 Bia Barry MD, MPH [address] [place] [address] [email or web address] Insurance Assigned Provider 01/25/24 documented as of this encounter Additional Source Comments The information contained in this document represents components of the legal health record. It is not the complete legal health record.[facility]
--- OUTSIDE RECORDS SUMMARY | 2025-04-19 00:30 | XMS_ITS | Clinical Summary ---
Author Organization [facility] Address [address] [place] [address] Care Team Providers Care Electronic Intelligence Officer Name Role Phone aNncy Silverman GUILLERMO Primary Care Provider [phone] Allergies No known active allergies Medications albuterol [...] Most Recently Relevant to Health Maintenance Insurance [facility] Advance Directives Documents on File Type Date Recorded Patient Fermenter Helper Expl anation Health Care Decision (hx) 02/24/2022 AD PACK DIRECTIVE Health Care Decision (hx) 02/24/2022 AD PACK DIRECTIVE Care Teams Electronic Intelligence Officer Relationship Specialty Start Date End Date Nancy Silverman FNP PCP - General Family Medicine 04/23/24
--- OUTSIDE RECORDS SUMMARY | 2025-04-19 00:31 | XMS_ITS | Encounter Summary ---
Author Organization [facility] Address [address] [place] [address] Phone Care Team Providers Care Pole Peeling Machine Operator Name Role Phone Gladis Pinedo HEATING ELEMENT BUILDER Unavailable [phone] Gladis Pinedo HEATING ELEMENT BUILDER Primary Care Provider [phone] Dennis Kam MD Unavailable [phone] Nancy Silverman MANGA ARTIST Primary Care Provider [phone] Bia Barry MD, MPH Unavailable + [phone] Kiara Molina MD Primary Care Provider [phone] Encounter Details Date Type Department Care Team (Late st Contact Info) Description 04/30/2022 Procedure Pass [facility] Admitting Dept Virtual Department [address] [place] [address] Social History Tobacco Use Types Packs/Day Years [...] high school, GED, job training, learning the Jamaican language, technical skills, or developing parenting skills)? [...] Description 08/08/2025 8:00 AM EDT Office Visit [facility] [address] [place] [address] Kiara Molina MD 15 [facility] [address] [place] [address] [email or web address] documented as of this encounter Visit Diagnoses Not on filedocumented in this encounter Additional Health Concerns Infection Onset Date Last Indicated Resolved Time COVID-19 04/29/2023 04/29/2023 05/20/2023 1:22 AM EST Assessment Noted Time PHQ-2 Depression Total Score: 0 11/26/19 9:10 AM EDT documented as of this encounter Care Teams Pole Peeling Machine Operator Relationship Specialty Start Date End Date Gladis Pinedo HEATING ELEMENT BUILDER PCP - General Family Medicine 01/08/18 05/14/23 Nancy Silverman FNP [address] [place] [address] PCP - General Nurse Practitioner 05/15/23 06/10/24 Kiara Molina MD [address] [place] [address] PCP - General Family Medicine 06/11/24 Gladis Pinedo HEATING ELEMENT BUILDER Historical LMR Provider 02/05/17 Dennis Kam MD [address] [place] [address] Gastroenterology 05/24/22 Bia Barry MD, MPH [address] [place] [address] [email or web address] Insurance Assigned Provider 01/25/24 documented as of this encounter Additional Source Comments The information contained in this document represents components of the legal health record. It is not the complete legal health record.[facility]
--- OUTSIDE RECORDS SUMMARY | 2025-04-19 00:31 | XMS_ITS | Clinical Summary ---
Author Organization [facility] Address [address] [place] [address] Phone Care Team Providers Care Alpaca Farmer Name Role Phone Gladis Pinedo NP Unavailable [phone] Samantha Kam MD Unavailable [phone] Bia Barry MD, MPH Unavailable [phone] Kiara Molina MD Primary Care Provider Allergies No known active allergies Medications cholecalciferol (VITAMIN D3) 2,000 unit tablet Take 1 tablet (2,000 Units total) by mouth daily. 30 tablet 11 4 Active escitalopram oxalate (LEXAPRO) 20 MG tablet Take 1 tablet (20 mg total) by mouth daily. 90 tablet 1 5 Active loratadine (CLARITIN) 10 mg tabletIndications:A llergic rhinitis Take 1 tablet (10 mg total) by mouth daily. 30 tablet 11 5 Active buPROPion (WELLBUTRIN XL) 150 MG ER 24 hr tabletIndications:A nxiety disorder,Major depressive disorder Take 1 tablet (150 mg total) by mouth daily. 90 tablet 3 5 Active albuterol 90 mcg/actuation inhalerIndications: Mild persistent asthma without complication,Chroni c obstructive pulmonary disease Inhale 2 puffs into the lungs every 6 (six) hours as needed for wheezing. 8.5 g 1 5 Active traZODone (DESYREL) 50 MG tablet Take 2 tablets (100 mg total) by mouth nightly at bedtime. 180 tablet 1 5 Active butalbital-acetamin ophen-caffeine (FIORICET, ESGIC) 50-325-40 mg per tablet 1 tab twice a week PRN 6 tablet 5 Active LORazepam (ATIVAN) 0.5 MG tabletIndications:A nxiety disorder Take 1 tablet (0.5 mg total) by mouth daily as needed for anxiety. 10 tablet 5 Active ondansetron (ZOFRAN-ODT) 4 MG disintegrating tablet Take 1 tablet (4 mg total) by mouth every 8 (eight) hours as needed for nausea. 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 She will contact the office should insomnia [...] Encounters Date Type Department Care Team Description 04/18/2025 Orders Only [facility] [address] [place] [address] ProviderLucrecia MD 03/14/2025 Orders Only [facility] [address] [place] [address] Provider, MD Lucrecia from Last 3 Months Immunizations Immunization Administration Dates Next Due COVID-19 (Pre-02/10) Moderna Vaccine, Bivalent 6mo+ 01/23/2022 COVID-19 (Pre-02/10) [...] high school, GED, job training, learning the Italian language, technical skills, or developing parenting skills)? [...] Description 08/08/2025 8:00 AM EDT Office Visit [facility] [address] [place] [address] Kiara Molina MD 15 [facility] [address] [place] [address] [email or web address] Health Maintenance Due Date Last Done Comments SMOKING Hx and SMOKELESS TOBACCO SCREENING 1977 COLOGUARD 2009 FIT TEST 2009 FOBT 2009 SIGMOIDOSCOPY 2009 VIRTUAL COLONOSCOPY 2009 RSV VACCINE (1 - Risk 50-74 years 1-dose series) 2014 ZOSTER VACCINES (2 of 2) 10/07/2023 08/12/2023 INFLUENZA VACCINE (#1) 2024 , 01/22/2023, 03/18/2018, Additional history exists COVID-19 VACCINE ( season) 2024 01/22/2023, 01/23/2022, 01/14/2022, Additional history exists DEPRESSION SCREENING 01/25/2025 01/26/2024, 01/26/20 24 MAMMOGRAM 08/11/2025 08/12/2023, 11/21, 11/28/2021, Additional history exists PNEUMOCOCCAL VACCINES (50+ years) (4 of 4 - PCV20 or PCV21) 11/28/2026 11/28/2021, 12/23/2019, 01/04/2015, Additional history exists COLONOSCOPY 04/30/2027 04/30/2022, 04/11/2015 COLORECTAL CANCER SCREENING 04/30/2027 LIPID PANEL 12/20/2027 12/19/2022, 11/21, 12/19/2021, Additional history exists Adult Td,Tdap Booster [...] OUTSIDE IMAGING Routine 04/16/2025 10:21 AM EST OUTSIDE IMAGING Routine 03/11/2025 10:34 AM EST [...] Maintenance Results * Outside Imaging Report Only (04/16/2025 10:21 AM EST) us Historical Provider MD ANAYA XR CHEST Final Res ult * Outside Imaging Report Only (03/11/2025 10:34 AM EST) us Historical Provider MD ANAYA XR CHEST Final Res ult * (ABNORMAL) Lipid panel (12/19/2022 3:45 PM EDT) HDL 64 mg/dL [facility] Comment: Interpretation <40 mg/dL: Low HDL cholesterol (major risk factor for CHD) Greater than or equal to 60 mg/dL: High HDL cholesterol ( negative risk factor for CHD) HDL - cholesterol is affected by a number of factors, e.g. smoking, excerise, hormones, sex and age. CHOLESTEROL 236 0 - 240 mg/dL [facility] TRIGLYCERIDES 144 30 - 160 mg/dL [facility] LDL 143(H) 50 - 129 mg/dL [facility] Comment: LDL levels in terms of risk for coronary heart disease: <100 mg/dL: Optimal 100-129 mg/dL: Near or above optimal 130-159 mg/dL: Borderline high 160-189 mg/dL: High >190 mg/dL: Very High CARDIAC RISK RATIO 3.7 3.3 - 4.4 [facility] Blood 12/19/2022 3:45 PM EDT 12/19/2022 3:49 PM EDT us Gladis Pinedo NP LAB BLOOD BKR ORDERABLES Final Result [facility] [address] [place], [place] [id number] * ENDOSCOPY, COLON (04/30/2022 11:13 AM EST) Narrative Transcriptions Samantha Kam MD - 04/30/2022 11:13 AM EST [facility] Patient Name: Taty Lau Attending MD:: SAMANTHA KAM MD Procedure Date: 04/30/2022 11:13 AM Date of : 1965 Age: 56 Admit Type: Outpatient Gender: Female Room: [facility] Referring MD: GLADIS PINEDO Exam Type: Colonoscopy Medications: Monitored Anesthesia [...] monitored continuously. The Olympus adult variable colonoscope [id number] #3 was introduced through the anus and [...] Repeat colonoscopy in 1 year for surveillance. Samantha Kam SAMANTHA KAM MD 04/30/2022 12:23:50 PM This report has been signed electronically. Number of Addenda: 0 Note Initiated On: 04/30/2022 11:13 AM Procedure Code(s): --- Professional --- 16631, Colonoscopy, flexible; with removal of tumor(s), polyp(s), or other lesion(s) by snare technique --- Technical --- 65314, Colonoscopy, flexible; with removal of tumor(s), polyp(s), or other lesion(s) by snare technique CPT copyright 2020 [employer]. All rights reserved. The codes documented in this report are preliminary and upon private inquiry agent reviewmay be revised to meet current compliance requirements. Procedure Date: 04/30/2022 11:13:16 AM [address] [place] [address] Gladis Pinedo NP GI PROCEDURE ORDERABLES Final R esult * Hepatitis C antibody, qualitative (12/19/2021 11:00 AM EDT) HCV NON-REACTIV E NON-REACTI VE [facility] Blood 12/19/2021 11:0 0 AM EDT 12/19/2021 11:04 AM EDT us Gladis Pinedo NP LAB BLOOD BKR ORDERABLES Final Result [facility] [address] [place] [address] * Mammogram Screening (Bilateral) (11/09/2019 12:11 PM EDT) Anatomical Region Laterality Modality Breast Left, Breast Right, Breast Bilateral Bila teral Breast Screening us Gladis Pinedo NP IMG MG EXAMS Final Result from Last 3 Months or Most Recently Relevant to Health Maintenance Insurance [address] [place] [address] [facility] PPO EPO [address] [place] [address] [facility] PPO EPO [address] [place] [place] [id number] [place] [address] [address]PO [address] [place] [facility] PPO EPO [address] [place] [facility] PPO EPO [address] [place] [place] [id number] [place] [address] [address]PO [address] [place] [facility] PPO EPO [address] [place] [facility] PPO EPO [facility] PPO EPO Care Teams Alpaca Farmer Relationship Specialty Start Date End Date Kiara Molina MD [address] [place] [address] PCP - General Family Medicine 06/11/24 Gladis Pinedo NP Historical LMR Provider 02/05/17 Samantha Kam MD [address] [place] [address] Gastroenterology 05/24/22 Bia Barry MD, MPH [address] [place] [address] Insurance Assigned Provider 01/25/24 Additional Source Comments The information contained in this document represents components of the legal health record. It is not the complete legal health record.[facility]
--- OUTSIDE RECORDS SUMMARY | 2025-04-19 00:31 | XMS_ITS | Encounter Summary ---
Author Organization [facility] Address [address] [place] [address] Phone Care Team Providers Care Licensed Prosthetist/Orthotist Name Role Phone Gladis Pinedo DATA REVIEWER Unavailable [phone] Gladis Pineod DATA REVIEWER Primary Care Provider [phone] Dennis Kam MD Unavailable [phone] Nancy Silverman ELECTRICAL LINEWORKER Primary Care Provider [phone] Bia Barry MD, MPH Unavailable + [phone] Kiara Molina MD Primary Care Provider [phone] Encounter Details Date Type Department Care Team (Late st Contact Info) Description 12/19/2022 Procedure Pass , [address] [address] Social History Tobacco Use Types Packs/Day Years [...] high school, GED, job training, learning the Bulgarian language, technical skills, or developing parenting skills)? [...] Description 08/08/2025 8:00 AM EDT Office Visit [facility] Primary Care Clinic [address] [facility] [address] [place] [address] Kiara Molina MD 15 [facility] [address] [place] [address] [email or web address] documented as of this encounter Visit Diagnoses Not on filedocumented in this encounter Additional Health Concerns Infection Onset Date Last Indicated Resolved Time COVID-19 04/29/2023 04/29/2023 05/20/2023 1:22 AM EST Assessment Noted Time PHQ-2 Depression Total Score: 0 11/26/19 9:10 AM EDT documented as of this encounter Care Teams Licensed Prosthetist/Orthotist Relationship Specialty Start Date End Date Gladis Pinedo DATA REVIEWER PCP - General Family Medicine 01/08/18 05/14/23 Nancy Silverman FNP [address] [address] PCP - General Nurse Practitioner 05/15/23 06/10/24 Kiara Molina MD [address] [address] PCP - General Family Medicine 06/11/24 Gladis Pinedo DATA REVIEWER Historical LMR Provider 02/05/17 Dennis Kam MD [address] [place] [address] Gastroenterology 05/24/22 Bia Barry MD, MPH [address] [place] [address] [email or web address] Insurance Assigned Provider 01/25/24 documented as of this encounter Additional Source Comments The information contained in this document represents components of the legal health record. It is not the complete legal health record.[facility]
--- OUTSIDE RECORDS SUMMARY | 2025-04-19 00:31 | XMS_ITS | Encounter Summary ---
Author Organization [facility] Address [address] [place] [address] [address] [place] [address] Phone Care Team Providers Care Salad Bar Clerk Name Role Phone Xavi Nusrat Lima COUNTER WAITRESS/WAITER Unavailable [phone] Gladis Pinedo COUNTER WAITRESS/WAITER Unavailable [phone] Gladis Pinedo COUNTER WAITRESS/WAITER Primary Care Provider [phone] Dennis Kam MD Unavailable [phone] aNncy Silverman VIBRATING SCREEN OPERATOR Primary Care Provider [phone] Bia Barry MD, MPH Unavailable + [phone] Kiara Molina MD Primary Care Provider [phone] Encounter Details Date Type Department Care Team (Late st Contact Info) Description 11/22/2020 Procedure Pass [facility], Ct Scan - [address] [address] Social History Tobacco Use Types Packs/Day Years [...] high school, GED, job training, learning the Guyanese language, technical skills, or developing parenting skills)? [...] Description 08/08/2025 8:00 AM EDT Office Visit [facility] Primary Care Clinic [address] [facility] [address] [place] [address] Kiara Molina MD 15 [facility] [address] [place] [address] [email or web address] documented as of this encounter Visit Diagnoses Not on filedocumented in this encounter Additional Health Concerns Infection Onset Date Last Indicated Resolved Time COVID-19 04/29/2023 04/29/2023 05/20/2023 1:22 AM EST Assessment Noted Time PHQ-2 Depression Total Score: 0 11/23/19 21 2:57 PM EDT documented as of this encounter Care Teams Salad Bar Clerk Relationship Specialty Start Date End Date Gladis Pinedo, COUNTER WAITRESS/WAITER [address] [place] [address] PCP - General Family Medicine 01/08/18 05/14/23 Nancy Silverman, GUILLERMO [address] [place] [address] [email or web address] PCP - General Nurse Practitioner 05/15/23 06/10/24 Kiara Molina MD [address] [place] [address] [email or web address] PCP - General Family Medicine 06/11/24 Nusrat Hurley NP [address] [place] [address] Historical LMR Provider 02/05/17 2 Gladis Pinedo, COUNTER WAITRESS/WAITER [address] [place] [address] Historical LMR Provider 02/05/17 Dennis Kam MD [address] [place] [address] Gastroenterology 05/24/22 Bia Barry MD, MPH [address] [place] [address] Insurance Assigned Provider 01/25/24 documented as of this encounter Additional Source Comments The information contained in this document represents components of the legal health record. It is not the complete legal health record.[facility]
--- OUTSIDE RECORDS SUMMARY | 2025-04-19 00:31 | XMS_ITS | Encounter Summary ---
Author Organization [facility] Address [address] [place] [address] Phone Care Team Providers Care Sql Report Analyst Name Role Phone Gladis Pinedo NP Unavailable [phone] Gladis Pinedo STUDENT WORKER Primary Care Provider [phone] Dennis Kam MD Unavailable [phone] Nancy Silverman SPECIAL SERVICE REPRESENTATIVE Primary Care Provider Bia Barry MD, MPH Unavailable + [phone] Kiara Molina MD Primary Care Provider [phone] Encounter Details Date Type Department Care Team (Late st Contact Info) Description 04/29/2023 Nurse Triage [facility] [address] [place] [address] Gladis Pinedo, STUDENT WORKER [address] [facility] [address] [place] [address] [email or web address] Social History Tobacco Use Types Packs/Day Years [...] high school, GED, job training, learning the Yi language, technical skills, or developing parenting skills)? [...] Description 08/08/2025 8:00 AM EDT Office Visit [facility] [address] [facility] [address] [place] [address] Kiara Molina MD [address] [address] [email or web address] documented as of this encounter Procedures Procedure [...] documented as of this encounter Care Teams Sql Report Analyst Relationship Specialty Start Date End Date Gladis Pinedo NP [email or web address] PCP - General Family Medicine 01/08/18 05/14/23 Nancy Silverman FNP [address] [place] [address] [email or web address] PCP - General Nurse Practitioner 05/15/23 06/10/24 Kiara Molina MD [address] [address] [email or web address] PCP - General Family Medicine 06/11/24 Gladis Pinedo NP [email or web address] Historical LMR Provider 02/05/17 Dennis Kam MD [address] [place] [address] [email or web address] Gastroenterology 05/24/22 Bia Barry MD, MPH 15 [facility] 201 [place] [address] [email or web address] Insurance Assigned Provider 01/25/24 documented as of this encounter Additional Source Comments The information contained in this document represents components of the legal health record. It is not the complete legal health record.[facility]
--- OUTSIDE RECORDS SUMMARY | 2025-04-19 00:31 | XMS_ITS | Encounter Summary ---
Author Organization [facility] Address [address] [place] [address] Phone Care Team Providers Care Anodic Treater Name Role Phone Gladis Pinedo HUMAN SERVICE SPECIALIST Unavailable [phone] Gladis Pinedo HUMAN SERVICE SPECIALIST Primary Care Provider [phone] Dennis Kam MD Unavailable [phone] Nancy Silverman FARM MANAGER Primary Care Provider [phone] Bia Barry MD, MPH Unavailable + [phone] Kiara Molina MD Primary Care Provider [phone] Encounter Details Date Type Department Care Team (Late st Contact Info) Description 11/28/2021 Procedure Pass [facility], Ct Scan - [address] [address] Social History Tobacco Use Types Packs/Day Years [...] high school, GED, job training, learning the Australian language, technical skills, or developing parenting skills)? [...] Visit [facility] Care Clinic [address] [facility] [address] [place] [address] Kiara Molina MD 15 [facility] [address] [place] [address] [email or web address] documented as of this encounter Visit Diagnoses Not on filedocumented in this encounter Additional Health Concerns Infection Onset Date Last Indicated Resolved Time COVID-19 04/29/2023 04/29/2023 05/20/2023 1:22 AM EST Assessment Noted Time PHQ-2 Depression Total Score: 0 11/26/19 22 9:10 AM EDT documented as of this encounter Care Teams Anodic Treater Relationship Specialty Start Date End Date Galdis Pinedo HUMAN SERVICE SPECIALIST PCP - General Family Medicine 01/08/18 05/14/23 Nancy Silverman FNP [address] [place] [address] PCP - General Nurse Practitioner 05/15/23 06/10/24 Kiara Molina MD [address] [place] [address] PCP - General Family Medicine 06/11/24 Gladis Pinedo HUMAN SERVICE SPECIALIST Historical LMR Provider 02/05/17 Dennis Kam MD [address] [place] [address] Gastroenterology 05/24/22 Bia Barry MD, MPH [address] [place] [address] Insurance Assigned Provider 01/25/24 documented as of this encounter Additional Source Comments The information contained in this document represents components of the legal health record. It is not the complete legal health record.[facility]
--- OUTSIDE RECORDS SUMMARY | 2025-04-19 00:31 | XMS_ITS | Encounter Summary ---
Author Organization [facility] Address [address] [place] [address] Phone Care Team Providers Care Newspaper Publisher Name Role Phone Gladis Pinedo NP Unavailable [phone] Dennis Kam MD Unavailable [phone] Bia Barry MD, MPH Unavailable [phone] Kiara Molina MD Primary Care Provider [phone] Encounter Details Date Type Department Care Team (Late st Contact Info) Description 03/14/2025 Orders Only [facility] [address] [place] [address] Provider, MD [facility] [place] [address] Social History Tobacco Use Types [...] high school, GED, job training, learning the Stateless language, technical skills, or developing parenting skills)? [...] [facility] [address] [facility] [address] [place] [address] Kiara Molina MD [address] [facility]. [address] [place] [address] [email or web address] documented as of this encounter Procedures Procedure [...] documented as of this encounter Care Teams Newspaper Publisher Relationship Specialty Start Date End Date Kiara Molina MD [address] [facility] [address] [place] [address] PCP - General Family Medicine 06/11/24 Gladis Pinedo NP Historical LMR Provider 02/05/17 Dennis Kam MD [address] [place] [id number] Gastroenterology 05/24/22 Bia Barry MD, MPH [address] [place] [address] [email or web address] Insurance Assigned Provider 01/25/24 documented as of this encounter Additional Source Comments The information contained in this document represents components of the legal health record. It is not the complete legal health record.[facility]
[2025-04-19 00:35] VITALS: BP 123/75; PULSE 89; RESP 18; TEMP 36.7; O2SAT 100
[2025-04-19] MEDS: Lactated Ringers 2,000 ML 999 ML IV (00:45)
--- NOTE | 2025-04-19 00:49 | PC.NURSE ---
20 g IV placed in right AC
[2025-04-19 08:35] LABS: Appearance Urine Clear; Glucose Urine UA Negative (Negative); PH 7.0 (5.0-9.0); Specific Gravity - Urine <= 1.005 (1.005-1.025)
== END 2025-04-19 06:49 | disposition home or self-care (01) ==
LOC: HO.ED 04-19 00:28
PROVIDERS: Physician Assistant Medical; Emergency Provider Emergency Medicine; PCP Registered Nurse
DX: K52.9 Noninfective gastroenteritis and colitis, unspecified (principal); R06.02 Shortness of breath; R11.2 Nausea with vomiting, unspecified; Z79.899 Other long term (current) drug therapy; Z03.818 Encounter for observation for suspected exposure to other biological agents ruled out
CPT/HCPCS: 80053; 81003; 83735; 85025; 87637; 96361; 96374; 99283; 99284; J1308; J7120